=== PATIENT | female | born 1965 | race Caucasian/White ===

== ENCOUNTER → 2017-12-29 | Outpatient (CLI) | payer BC ==
--- NOTE | 2017-12-29 09:11 | RADIOLOGY REPORT (SQ) ---
EXAM DESCRIPTION: VENOUS BILATERAL LOWER COMPLETED DATE/TIME: 12/29/2017 8:55 am REASON FOR STUDY: LEG SWELLING M79.89 OTHER SPECIFIED SOFT TISSUE DISORDERS COMPARISON: None. TECHNIQUE: Dynamic and static henderson scale and color images acquired of both lower extremity venous sy stems. Selected spectral images acquired with additional compression and augmentation maneuvers. Imag es stored on PACS. LIMITATIONS: None. FINDINGS: RIGHT LEG COMMON FEMORAL AND FEMORAL: Normal phasicity, compression and augmentation. No visualized echogenic m aterial on henderson scale. No defects on color images. POPLITEAL: Normal compression and augmentation. No visualized echogenic material on henderson scale. No de fects on color images. CALF VESSELS: Normal compression and augmentation. No visualized echogenic material on henderson scale. No defects on color image. GSV AND SSV: Normal compression. No visualized echogenic material on henderson scale. No defects on color images. ANY DEEP VENOUS INSUFFICIENCY: Not evaluated. ANY EVIDENCE OF POPLITEAL CYST: No. LEFT LEG COMMON FEMORAL AND FEMORAL: Normal phasicity, compression and augmentation. No visualized echogenic m aterial on henderson scale. No defects on color images. POPLITEAL: Normal compression and augmentation. No visualized echogenic material on henderson scale. No de fects on color images. CALF VESSELS: Normal compression and augmentation. No visualized echogenic material on henderson scale. No defects on color images. GSV AND SSV: Normal compression. No visualized echogenic material on henderson scale. No defects on color images. ANY DEEP VENOUS INSUFFICIENCY: Not evaluated. ANY EVIDENCE POPLITEAL CYST: No. IMPRESSION: No evidence of deep vein or superficial vein thrombosis of the lower extremities. TECHNICAL DOCUMENTATION: JOB ID: [id number] [employer]- All Rights Reserved
== END ==
LOC: SP 08:16
PROVIDERS: ATTEND Family Medicine
DX: M79.89 Other specified soft tissue disorders (principal)
CPT/HCPCS: 93970

== ENCOUNTER 2018-07-13 08:10 | Day surgery (SDC) | payer BC ==
[~2018-07-13 08:10] MED LIST: PROPOFOL INJ 200 MG/20 ML VIAL IV ONE
[2018-07-13 09:53] VITALS: BP 110/63
--- NOTE | 2018-07-13 13:59 | Operative Report ---
Operative Report DATE OF SURGERY: 07/13/18 Operative Report: The risks, benefits and alternatives of the procedure including the risks of bleeding, perforation requiring surgery are explained to the patient in detail and informed consent is obtained. Patient was taken back to the endoscopy suite and placed in the left, lateral decubital position. Timeout was called. Propofol medication is administered. A rectal examination is done which did not reveal any masses, tears or fissures. An Olympus videoscope was inserted into the patient's rectum. The scope was then carefully advanced all the way to the cecum. The cecum was identified by the usual anatomical landmarks including the ileocecal valve as well as the appendiceal office. Photodocumentation is obtained. The scope was then sequentially pulled back via the rest segments of the colon including the ascending colon, hepatic flexure, transverse colon, splenic flexure, descending colon and finally into the rectosigmoid portions of the colon. Retroflexion maneuvers performed. The risks benefits and alternatives of the EGD are explained to the patient in detail and informed consent is obtained.A GIF Olympus video scope was inserted into the patient's mouth and hypopharynx ,the esophagus is identified intubated and insufflated, the scope was then advanced through the esophagus stomach and duodenum retroflexion maneuver is done ,the esophagus stomach and first and second portions of the duodenum examined PREOPERATIVE DIAGNOSIS: Anemia rule out GI blood loss. Blood in stool. Change in bowel habits. Encounter for colorectal cancer screening POSTOPERATIVE DIAGNOSIS: Right side colon inflammation , biopsy is obtained. Internal hemorrhoids. gastritis and gastric erosions. esophagitis and esophageal ulcers. hiatal hernia OPERATION: Colonoscopy with biopsy. EGD with biopsy SURGEON: JARAD NAVARRETE ANESTHESIA: LMAC TISSUE REMOVED OR ALTERED: As noted above. COMPLICATIONS: None. ESTIMATED BLOOD LOSS: None. INTRAOPERATIVE FINDINGS: As noted above. PROCEDURE: Patient tolerated the procedure well. No immediate postprocedure complications are noted. Patient discharged in good condition. Discharge date 07/13/2018. Discharge diet: Regular. Discharge activity: Regular. 2-3 week follow-up to discuss findings. Patient is instructed call the office or proceed to the emergency room should there be any further problems or questions. Wait on the pathology.
== END 2018-07-13 09:50 | disposition home or self-care (01) ==
LOC: END 08:10
PROVIDERS: ATTEND Internal Medicine Gastroenterology
DX: K29.50 Unspecified chronic gastritis without bleeding (principal); K25.9 Gastric ulcer, unspecified as acute or chronic, without hemorrhage or perforation; K22.10 Ulcer of esophagus without bleeding; K20.9 Esophagitis, unspecified; K44.9 Diaphragmatic hernia without obstruction or gangrene; K62.89 Other specified diseases of anus and rectum; K92.1 Melena; K52.9 Noninfective gastroenteritis and colitis, unspecified; K64.8 Other hemorrhoids; E78.5 Hyperlipidemia, unspecified; E03.9 Hypothyroidism, unspecified; M32.9 Systemic lupus erythematosus, unspecified; I10 Essential (primary) hypertension; M81.0 Age-related osteoporosis without current pathological fracture; Z79.899 Other long term (current) drug therapy; Z88.5 Allergy status to narcotic agent
CPT/HCPCS: 43239; 45380; 88305 ×2; J2704; 813

== ENCOUNTER 2018-09-02 08:00 | Day surgery (SDC) | payer BC ==
[2018-09-02] MEDS ORDERED: PROPOFOL INJ 200 MG/20 ML VIAL IV ONE (10:16)
[2018-09-02] MEDS ORDERED: ONDANSETRON HCL INJ/PF 4 MG/2 ML SDV IV PRN (10:33)
--- NOTE | 2018-09-02 11:03 | Operative Report ---
Operative Report DATE OF SURGERY: 09/02/18 Operative Report: The risks benefits and alternatives of the procedure explained to the patient in detail and informed consent is obtained.A GIF Olympus video scope was inserted into the patient's mouth and hypopharynx ,the esophagus is identified intubated and insufflated, the scope was then advanced through the esophagus stomach and duodenum, retroflexion maneuver is done the esophagus stomach and first and second portions of the duodenum examined PREOPERATIVE DIAGNOSIS: Follow-up esophageal ulcer POSTOPERATIVE DIAGNOSIS: No esophageal erosion. Healed gastric ulcers. Biopsies obtained to rule out Helicobacter pylori OPERATION: EGD with biopsy SURGEON: JARAD NAVARRETE ANESTHESIA: LMAC TISSUE REMOVED OR ALTERED: As noted above COMPLICATIONS: None. ESTIMATED BLOOD LOSS: None. INTRAOPERATIVE FINDINGS: As noted above. PROCEDURE: Patient tolerated procedure well. No immediate postprocedure complications are noted. Patient discharged in good condition. Discharge date 09/02/2018. Discharge diet: Regular. Discharge activity: Regular. 2-3-week follow-up to discuss findings. Patient is instructed call the office or proceed to the emergency room should there be any further problems or questions. Wait on the pathology.
[2018-09-02 11:26] VITALS: BP 133/81
== END 2018-09-02 11:28 | disposition home or self-care (01) ==
LOC: OROUT 08:00
PROVIDERS: ATTEND Internal Medicine Gastroenterology
DX: Z09 Encounter for follow-up examination after completed treatment for conditions other than malignant neoplasm (principal); Z87.11 Personal history of peptic ulcer disease; Z87.19 Personal history of other diseases of the digestive system; E78.5 Hyperlipidemia, unspecified; E03.9 Hypothyroidism, unspecified; M32.9 Systemic lupus erythematosus, unspecified; I10 Essential (primary) hypertension; M19.90 Unspecified osteoarthritis, unspecified site; D64.9 Anemia, unspecified; E07.9 Disorder of thyroid, unspecified; Z86.73 Personal history of transient ischemic attack (TIA), and cerebral infarction without residual deficits; Z79.899 Other long term (current) drug therapy; Z79.82 Long term (current) use of aspirin; Z88.5 Allergy status to narcotic agent
CPT/HCPCS: 43239; 36415; 84132; 88305 ×2; J2704; 731

== ENCOUNTER → 2018-10-16 | Outpatient (CLI) | payer BC ==
[2018-10-16 15:38] LABS: HEMATOCRIT 30.6 % (36.0-47.0); HEMOGLOBIN 10.3 g/dL (12.0-15.5); MEAN CORPUSCULAR HEMOGLOBIN 32.1 pg (27.0-33.4); MEAN CORPUSCULAR HGB CONC 33.7 g/dL (32.0-36.0); MEAN CORPUSCULAR VOLUME 95 fl (80-97); PLATELET COUNT 370 10^3/uL (150-450); RED BLOOD COUNT 3.22 10^6/uL (3.72-5.28); RED CELL DISTRIBUTION WIDTH 13.5 % (11.5-14.0); WHITE BLOOD COUNT 14.2 10^3/uL (4.0-10.5)
[2018-10-16 15:55] LABS: ALANINE AMINOTRANSFERASE 31 U/L (9-52); ALBUMIN 3.3 g/dL (3.5-5.0); ALKALINE PHOSPHATASE 134 U/L (38-126); ANION GAP 15 (5-19); ASPARTATE AMINO TRANSFERASE 25 U/L (14-36); BILIRUBIN,DIRECT 0.3 mg/dL (0.0-0.4); BILIRUBIN,TOTAL 0.3 mg/dL (0.2-1.3); BLOOD UREA NITROGEN 20 mg/dL (7-20); CALCIUM 9.7 mg/dL (8.4-10.2); CARBON DIOXIDE 26 mmol/L (22-30); CHLORIDE 98 mmol/L (98-107); GLUCOSE 128 mg/dL (75-110); POTASSIUM 3.7 mmol/L (3.6-5.0); SODIUM 138.9 mmol/L (137-145); TRIGLYCERIDES 97 mg/dL (<150)
[2018-10-16 16:22] LABS: DIRECT LDL 94 mg/dL (<100)
[2018-10-18 06:38] LABS: COMPLEMENT C4 51 mg/dL (14-44)
[2018-10-18 08:15] LABS: COMPLEMENT C3 189 mg/dL (82-167)
[2018-10-18 14:40] LABS: CREATININE URINE 12.6 mg/dL (Not Estab.); MICROALBUMIN URINE 3.3 ug/mL (Not Estab.)
== END ==
LOC: LAB 16:24
PROVIDERS: ATTEND Internal Medicine Cardiovascular Disease
DX: R60.0 Localized edema (principal); R06.02 Shortness of breath; Z79.899 Other long term (current) drug therapy; I51.7 Cardiomegaly
CPT/HCPCS: 36415; 80048; 80061; 80076; 82043; 82306; 82570; 83735; 83880; 85027; 86160; 86225; 86226

== ENCOUNTER 2018-10-17 01:38 | Emergency (ER) | payer BC ==
[2018-10-17] MEDS ORDERED: ONDANSETRON 4 MG TAB.RAPDIS PO ONE (02:04)
[2018-10-17] MEDS ORDERED: HYDROCODONE/ACETAMINOPHEN 5-325 MG TABLET PO ONE (02:04)
--- NOTE | 2018-10-17 02:09 | ER Document Report ---
ED General - General Chief Complaint: Breathing Difficulty Stated Complaint: COUGH Time Seen by Provider: 10/17/18 01:54 Notes: Patient is a 53-year-old female that comes to the emergency department for chief complaint of shortness of breath. She states that she has had a cough for a while but the past 3 days she has had increased shortness of breath. Tonight she also has had persistent cough. She has had a fever within the past week but not within the past few days. She was seen by primary care, given 2 separate doses of Rocephin and placed on amoxicillin. She also takes Lasix 20 mg twice daily for lower extremity swelling, states she has had elevated BNP in the past but is unsure of CHF diagnosis or EF. Denies chest pain. Denies smoking, COPD, asthma but does state that she has a history of lupus. She states that she has albuterol at home and she tried it but it did not help. Adjusted to 60 mg of prednisone this week by her PCP, up from her normal 5 mg. TRAVEL OUTSIDE OF THE [place] IN LAST 30 DAYS: No - Related Data Allergies/Adverse Reactions: codeine Allergy (Verified 09/01/18 11:21) Past Medical History - General Information source: Patient - Social History Smoking Status: Never Smoker Frequency of alcohol use: Social Drug Abuse: None Lives with: Family Family History: Reviewed & Not Pertinent - Past Medical History Cardiac Medical History: Reports: Hx Hypertension Denies: Hx Coronary Artery Disease, Hx Heart Attack Pulmonary Medical History: Denies: Hx Asthma, Hx Bronchitis, Hx COPD, Hx Pneumonia Neurological Medical History: Denies: Hx Cerebrovascular Accident, Hx Seizures Musculoskeletal Medical History: Reports Hx Arthritis - LUPUS - Immunizations Hx Diphtheria, Pertussis, Tetanus Vaccination: Yes History of Influenza Vaccine for 08/2017 - 01/2018 Season: No Review of Systems - Review of Systems Constitutional: See HPI EENT: No symptoms reported Cardiovascular: No symptoms reported Respiratory: See HPI Gastrointestinal: No symptoms reported Genitourinary: No symptoms reported Female Genitourinary: No symptoms reported Musculoskeletal: No symptoms reported Skin: No symptoms reported Hematologic/Lymphatic: No symptoms reported Neurological/Psychological: No symptoms reported Physical Exam - Vital signs Vitals: Temp Pulse Resp BP Pulse Ox 97.4 F 110 H 20 122/65 100 10/17/18 01:41 10/17/18 01:41 10/17/18 01:41 10/17/18 01:41 10/17/18 01:41 - Notes Notes: GENERAL: Alert, interacts well. No acute distress. HEAD: Normocephalic, atraumatic. EYES: Pupils equal, round, and reactive to light. Extraocular movements intact. ENT: Oral mucosa moist, tongue midline. Oropharynx unremarkable. Airway patent. Nares patent, no nasal septal hematoma, TM's intact. NECK: Full range of motion. Supple. Trachea midline. LUNGS: Rales heard in the lung bases, much louder on the right compared to the left. Patient with frequent nonproductive cough. Borderline tachypnea. She is not in distress. Coughing makes completing sentences difficult. HEART: Borderline tachycardia. No murmur ABDOMEN: Soft, non-tender. Non-distended. Bowel sounds present in all 4 quadrants. GENITOURINARY: Deferred EXTREMITIES: Moves all 4 extremities spontaneously. Bilateral 1+ pitting edema. Normal radial and dorsalis pedis pulses bilaterally. No cyanosis. BACK: no cervical, thoracic, lumbar midline tenderness. No saddle anesthesia, normal distal neurovascular exam. NEUROLOGICAL: Alert and oriented x3. Normal speech. [cranial nerves II through XII grossly intact]. PSYCH: Normal affect, normal mood. SKIN: Warm, dry, normal turgor. No rashes or lesions noted. Course - Re-evaluation Re-evalutation: EKG shows sinus tachycardia at a rate of 105, no T wave inversions or ST segment changes in consecutive leads. Chest x-ray showing small right pleural effusion, no overt abnormality otherwise. CBC unremarkable other than mild normocytic anemia. Chemistry shows mild hypokalemia, bicarb is slightly low but venous blood gas shows normal pH. BNP is elevated at 2500. Troponin indeterminate at 0.036. On evaluation at bedside patient is tachycardic between 105-110. She is mildly hypoxic at rest at 92-93% on room air, she was placed on 2 L nasal cannula and this resolved. She has rales on examination, worse on the right has 1+ pitting edema bilaterally. She has dyspnea on exertion, she also has difficulty completing sentences and lying flat. All of this is new for patient she reports. 10/17/18 03:30 Patient with dyspnea on exertion, her cough has resolved on my reevaluation but now she still has dyspnea, she cannot lay flat, she cannot walk across the room without becoming short of breath reportedly. She has rales on exam, mild bilateral lower extremity edema. In addition to this patient had a long distance travel within the past 3 weeks and she is tachycardic at approximately 110 which she states is not normal for her. After discussion because of her dyspnea on exertion, tachycardia, recent travel we will perform CTA to rule out PE. CTA does not show pulmonary embolism. It does show right lower lobe pneumonia. Consistent with the area of rales heard on her exam. Given doxycycline for atypical coverage because of her Rocephin use and amoxicillin use. On reevaluation patient is actually well-appearing. She does not have oxygen at home. She was given Lasix, potassium. Discussed admission versus going home. I did discuss patient with Dr. Perez, he recommends to ambulate patient with pulse oxygenation. If she does this well he recommends discharge with close follow-up. I discussed this with patient, she is very willing to do this, she actually did quite well, she did become tachycardic, however she did not become hypoxic and I monitored her and she did not have respiratory distress. She states she would prefer to go home. She has follow-up within 24 hours and her providers office which has already been scheduled. She was given a dose of doxycycline here. I discussed with Dr. Sales. Heart rate 105, oxygen saturation 95% on room air. Patient stable at the time of discharge. - Vital Signs Vital signs: Temp Pulse Resp BP Pulse Ox 97.4 F 110 H 15 120/73 96 10/17/18 01:41 10/17/18 01:41 10/17/18 06:00 10/17/18 04:00 10/17/18 06:00 - Laboratory Result Diagrams: 10/17/18 02:36 10/17/18 02:36 Laboratory results interpreted by me: 10/17/18 10/17/18 10/17/18 02:36 02:36 02:36 RBC 3.27 L Hgb 10.5 L Hct 31.0 L Seg Neutrophils % 88.1 H Lymphocytes % 5.8 L Absolute Neutrophils 8.6 H VBG pCO2 Sodium 136.3 L Potassium 3.3 L Chloride 97 L Carbon Dioxide 19 L Anion Gap 20 H Glucose 177 H Alkaline Phosphatase 153 H NT-Pro-B Natriuret Pep 2470 H 10/17/18 02:36 RBC Hgb Hct Seg Neutrophils % Lymphocytes % Absolute Neutrophils VBG pCO2 33.8 L Sodium Potassium Chloride Carbon Dioxide Anion Gap Glucose Alkaline Phosphatase NT-Pro-B Natriuret Pep Discharge - Discharge Clinical Impression: Shortness of breath, Dyspnea on exertion Pneumonia Qualifiers: Pneumonia type: due to unspecified organism Laterality: right Lung location: lower lobe of lung Qualified Code(s): J18.1 - Lobar pneumonia, unspecified organism Condition: Stable Disposition: HOME, SELF-CARE Additional Instructions: We did perform a CAT scan of your chest to rule out pulmonary embolism, this showed a right lower lobe pneumonia. Take doxycycline antibiotic as prescribed to completion. You were given a dose of potassium and Lasix tonight. Your potassium was 3.3, this will need to be rechecked. Your BNP improved from yesterday, today was 2470. Follow-up with your primary care provider within 24 hours. Return to the emergency department for any concerning or worsening symptoms including spiking fever, increased difficulty breathing, passing out, or any other concerning or worsening symptoms. Prescriptions: Doxycycline Hyclate 100 mg PO BID #14 capsule Hydrocodone/Acetaminophen [[place] 5-325 mg Tablet] 1 - 2 tab PO ASDIR #10 tablet Referrals: [facility] MD [EMERITUS] - Follow up as needed
--- NOTE | 2018-10-17 02:37 | RADIOLOGY REPORT (SQ) ---
CLINICAL HISTORY: shortness of breath COMPARISON: None. TECHNIQUE: XR CHEST 2 VIEWS 10/17/2018 2:07 AM CONVEYOR BELT OPERATOR FINDINGS: Cardiac silhouette is mildly enlarged. Lungs are clear without consolidation, atelectasis, mass or edema. There is a trace right pleural effusion. There is no pneumothorax. There are no acute osseous findings. IMPRESSION: No definite pneumonia.
[2018-10-17 02:41] LABS: VENOUS BLOOD BASE EXCESS -2.9 mmol/L; VENOUS BLOOD PCO2 33.8 mmHg (35-63); VENOUS BLOOD PH 7.41 (7.30-7.42)
[2018-10-17 02:47] LABS: ABSOLUTE LYMPHOCYTES (AUTO) 0.6 10^3/uL (0.5-4.7); ABSOLUTE MONOCYTES (AUTO) 0.6 10^3/uL (0.1-1.4); ABSOLUTE NEUT (AUTO) 8.6 10^3/uL (1.7-8.2); BASOPHILS % (AUTO) 0.1 % (0-2); EOSINOPHILS % (AUTO) 0.1 % (0-6); HEMOGLOBIN 10.5 g/dL (12.0-15.5); LYMPHOCYTES % (AUTO) 5.8 % (13-45); MEAN CORPUSCULAR HEMOGLOBIN 32.2 pg (27.0-33.4); MEAN CORPUSCULAR VOLUME 95 fl (80-97); MONOCYTES % (AUTO) 5.9 % (3-13); PLATELET COUNT 387 10^3/uL (150-450); RED BLOOD COUNT 3.27 10^6/uL (3.72-5.28); RED CELL DISTRIBUTION WIDTH 13.4 % (11.5-14.0); SEGMENTED NEUTROPHILS % (AUTO) 88.1 % (42-78); TOTAL CELLS COUNTED % (AUTO) 100 %; WHITE BLOOD COUNT 9.7 10^3/uL (4.0-10.5)
[2018-10-17 02:54] LABS: BLOOD UREA NITROGEN 19 mg/dL (7-20); CALCIUM 9.3 mg/dL (8.4-10.2); GLUCOSE 177 mg/dL (75-110); POTASSIUM 3.3 mmol/L (3.6-5.0)
[2018-10-17 02:55] LABS: ALANINE AMINOTRANSFERASE 36 U/L (9-52); ALBUMIN 3.6 g/dL (3.5-5.0); ALKALINE PHOSPHATASE 153 U/L (38-126); ASPARTATE AMINO TRANSFERASE 27 U/L (14-36); BILIRUBIN,DIRECT 0.3 mg/dL (0.0-0.4); BILIRUBIN,TOTAL 0.4 mg/dL (0.2-1.3); TOTAL PROTEIN 6.5 g/dL (6.3-8.2)
[2018-10-17 03:00] LABS: CARBON DIOXIDE 19 mmol/L (22-30); CHLORIDE 97 mmol/L (98-107); SODIUM 136.3 mmol/L (137-145)
[2018-10-17 03:08] LABS: ANION GAP 20 (5-19)
[2018-10-17 03:15] LABS: TROPONIN I 0.036 ng/mL
--- NOTE | 2018-10-17 04:40 | RADIOLOGY REPORT (SQ) ---
EXAM DESCRIPTION: CT CHEST ANGIOGRAPHY WITHOUT THEN WITH IV CONTRAST COMPLETED DATE/TME: 10/17/2018 03:28 CLINICAL HISTORY: 53 years Female, shortness of breath, recent travel, tachycardia Comparison: None. Technique: IV contrast. Coronal and sagittal reformat. 3d reconstruction. This exam was performed according to our departmental dose-optimization program, which includes automated exposure control, adjustment of the mA and/or kV according to patient size and/or use of iterative reconstruction technique.[facility]: Dose Right [facility]: CareDose [facility]: Dose Right [facility]: Teradose 4D [facility]: Smart Clusterize LIMITATIONS: None Findings: No pulmonary embolus. No right ventricular strain. Moderate streakiness based patchiness of the right lower lobe. Moderate nonspecific colonic fluid retention. Bilateral perinephric fat stranding, nonspecific. Inferior neck, axillae, mediastinum, airway, lymphatics, heart, vasculature, upper abdomen, and musculoskeleton appear otherwise unremarkable. Impression: 1. Right lower lobar pneumonia. 2. No pulmonary embolus.
[2018-10-17] MEDS ORDERED: DOXYCYCLINE HYCLATE INJ 100 MG VIAL IV ONE (04:49)
[2018-10-17] MEDS ORDERED: FUROSEMIDE INJ/PF 20 MG/2 ML SDV IV ONE (04:49)
[2018-10-17] MEDS ORDERED: POTASSIUM CHLORIDE 10 MEQ CAPSULE.ER PO ONE (05:14)
[2018-10-17] MEDS ORDERED: HYDROCODONE/ACETAMINOPHEN 5-325 MG (6 TAB/ER DISP) PO PRN (05:54)
[2018-10-17 06:50] VITALS: BP 114/71
--- NOTE | 2018-10-17 06:56 | EKG REPORT ---
SEVERITY:- ABNORMAL ECG - SINUS TACHYCARDIA LEFT VENTRICULAR HYPERTROPHY : Confirmed by: George Mcneill 17-Oct-2018 06:56:11
== END 2018-10-17 06:50 | disposition home or self-care (01) ==
LOC: ER 01:38
DX: J18.1 Lobar pneumonia, unspecified organism (principal); R06.00 Dyspnea, unspecified; R00.0 Tachycardia, unspecified; I10 Essential (primary) hypertension; Z88.6 Allergy status to analgesic agent
CPT/HCPCS: 93005; 99285; 96375; 96365; 36415; 83735; 85025; 80053; 84484; 82803; 83880; 71046; 71275; 93010; J3490; S0119; J1940

== ENCOUNTER → 2019-01-10 | Outpatient (CLI) | payer BC ==
[2019-01-10 12:24] LABS: ABSOLUTE BASOPHILS # (AUTO) 0.1 10^3/uL (0.0-0.2); ABSOLUTE MONOCYTES (AUTO) 0.9 10^3/uL (0.1-1.4); BASOPHILS % (AUTO) 0.5 % (0-2); HEMATOCRIT 29.5 % (36.0-47.0); HEMOGLOBIN 10.2 g/dL (12.0-15.5); LYMPHOCYTES % (AUTO) 9.2 % (13-45); MEAN CORPUSCULAR HEMOGLOBIN 33.3 pg (27.0-33.4); MEAN CORPUSCULAR HGB CONC 34.5 g/dL (32.0-36.0); MEAN CORPUSCULAR VOLUME 97 fl (80-97); MONOCYTES % (AUTO) 8.4 % (3-13); PLATELET COUNT 379 10^3/uL (150-450); RED BLOOD COUNT 3.05 10^6/uL (3.72-5.28); RED CELL DISTRIBUTION WIDTH 13.7 % (11.5-14.0); SEGMENTED NEUTROPHILS % (AUTO) 81.9 % (42-78); TOTAL CELLS COUNTED % (AUTO) 100 %
[2019-01-10 12:44] LABS: ALANINE AMINOTRANSFERASE 47 U/L (9-52); ALBUMIN 3.8 g/dL (3.5-5.0); ALKALINE PHOSPHATASE 136 U/L (38-126); ANION GAP 12 (5-19); ASPARTATE AMINO TRANSFERASE 39 U/L (14-36); BILIRUBIN,DIRECT 0.3 mg/dL (0.0-0.4); BILIRUBIN,TOTAL 0.6 mg/dL (0.2-1.3); BLOOD UREA NITROGEN 32 mg/dL (7-20); C-REACTIVE PROTEIN 64.1 mg/L (<10.0); CALCIUM 9.5 mg/dL (8.4-10.2); CARBON DIOXIDE 29 mmol/L (22-30); CHLORIDE 89 mmol/L (98-107); GLUCOSE 105 mg/dL (75-110); POTASSIUM 4.2 mmol/L (3.6-5.0); SODIUM 130.1 mmol/L (137-145); TOTAL PROTEIN 6.2 g/dL (6.3-8.2)
[2019-01-10 13:02] LABS: ERYTHROCYTE SEDIMENTATION RATE 110 mm/hr (0-30)
== END ==
LOC: WC 11:15
PROVIDERS: ATTEND Nurse Practitioner Family
DX: L97.212 Non-pressure chronic ulcer of right calf with fat layer exposed (principal)
CPT/HCPCS: 36415; 80053; 85025; 85652; 86140

== ENCOUNTER 2019-01-11 11:47 | Inpatient (IN) | payer BC ==
--- NOTE | 2019-01-11 12:21 | ER Document Report ---
ED Medical Screen (RME) - General Chief Complaint: Leg Pain Stated Complaint: LEG PAIN Time Seen by Provider: 01/11/19 12:10 Primary Care Provider: MAJOR CAMP NP, VETERINARY RADIOLOGIST [Primary Care Provider] - Follow up as needed Notes: 53-year-old pleasant female to the emergency department for evaluation of worsening cellulitis to the right lower extremity. Patient currently on clindamycin. Had a hematoma formation to the right lower tib-fib. Developed into an abscess and cellulitis. Currently on clindamycin. Getting worse. Was scheduled to have an ultrasound next week. Was seen by wound care and sent here for possible IV antibiotics and admission. Patient does have lupus. Is on immunosuppressive therapy including cyclosporine and monoclonal antibody therapy. I have greeted and performed a rapid initial assessment of this patient. A comprehensive ED assessment and evaluation of the patient, analysis of test results and completion of the medical decision making process will be conducted by additional ED providers. TRAVEL OUTSIDE OF THE [place] IN LAST 30 DAYS: No - Related Data Allergies/Adverse Reactions: No Known Allergies Allergy (Unverified 01/11/19 11:49) Past Medical History - Past Medical History Cardiac Medical History: Reports: Hx Hypertension Denies: Hx Coronary Artery Disease, Hx Heart Attack Pulmonary Medical History: Denies: Hx Asthma, Hx Bronchitis, Hx COPD, Hx Pneumonia Neurological Medical History: Denies: Hx Cerebrovascular Accident, Hx Seizures Renal/ Medical History: Denies: Hx Peritoneal Dialysis Musculoskeltal Medical History: Reports Hx Arthritis - LUPUS Past Surgical History: Reports: Hx Hysterectomy - Immunizations Hx Diphtheria, Pertussis, Tetanus Vaccination: Yes History of Influenza Vaccine for 08/2017 - 01/2018 Season: No Physical Exam - Vital signs Vitals: Temp Pulse Resp BP Pulse Ox 98.7 F 77 20 130/77 H 100 01/11/19 12:00 01/11/19 12:00 01/11/19 12:00 01/11/19 12:00 01/11/19 12:00 Course - Re-evaluation Re-evalutation: 01/11/19 12:20 Physical exam: Right lower extremity swollen and erythematous from the knee down. There is a bandage over an abscess/drainage area on the right tib-fib area. - Vital Signs Vital signs: Temp Pulse Resp BP Pulse Ox 98.7 F 77 20 130/77 H 100 01/11/19 12:00 01/11/19 12:00 01/11/19 12:00 01/11/19 12:00 01/11/19 12:00 Doctor's Discharge - Discharge Referrals: MAJOR CAMP NP, VETERINARY RADIOLOGIST [Primary Care Provider] - Follow up as needed
[2019-01-11 12:47] LABS: ABSOLUTE LYMPHOCYTES (AUTO) 1.1 10^3/uL (0.5-4.7); ABSOLUTE MONOCYTES (AUTO) 1.1 10^3/uL (0.1-1.4); ABSOLUTE NEUT (AUTO) 8.5 10^3/uL (1.7-8.2); BASOPHILS % (AUTO) 0.4 % (0-2); HEMATOCRIT 31.4 % (36.0-47.0); LYMPHOCYTES % (AUTO) 10.2 % (13-45); MEAN CORPUSCULAR HEMOGLOBIN 33.9 pg (27.0-33.4); MEAN CORPUSCULAR HGB CONC 35.1 g/dL (32.0-36.0); MEAN CORPUSCULAR VOLUME 97 fl (80-97); PLATELET COUNT 416 10^3/uL (150-450); RED BLOOD COUNT 3.25 10^6/uL (3.72-5.28); RED CELL DISTRIBUTION WIDTH 13.8 % (11.5-14.0); SEGMENTED NEUTROPHILS % (AUTO) 79.4 % (42-78); TOTAL CELLS COUNTED % (AUTO) 100 %; WHITE BLOOD COUNT 10.7 10^3/uL (4.0-10.5)
[2019-01-11 13:05] LABS: ALANINE AMINOTRANSFERASE 40 U/L (9-52); ALBUMIN 3.9 g/dL (3.5-5.0); ALKALINE PHOSPHATASE 136 U/L (38-126); ANION GAP 11 (5-19); ASPARTATE AMINO TRANSFERASE 34 U/L (14-36); BILIRUBIN,DIRECT 0.4 mg/dL (0.0-0.4); BILIRUBIN,TOTAL 0.5 mg/dL (0.2-1.3); BLOOD UREA NITROGEN 24 mg/dL (7-20); C-REACTIVE PROTEIN 55.8 mg/L (<10.0); CALCIUM 10.3 mg/dL (8.4-10.2); CARBON DIOXIDE 31 mmol/L (22-30); CHLORIDE 92 mmol/L (98-107); GLUCOSE 110 mg/dL (75-110); POTASSIUM 4.5 mmol/L (3.6-5.0); SODIUM 133.6 mmol/L (137-145); TOTAL PROTEIN 6.3 g/dL (6.3-8.2)
--- NOTE | 2019-01-11 13:13 | RADIOLOGY REPORT (SQ) ---
EXAM DESCRIPTION: TIBIA FIBULA RIGHT COMPLETED DATE/TIME: 01/11/2019 12:53 pm REASON FOR STUDY: RLE soft tissue infection COMPARISON: None. NUMBER OF VIEWS: Two views. TECHNIQUE: Two radiographic images acquired of the right tibia and fibula to include the knee and an kle in at least one projection. LIMITATIONS: None. FINDINGS: MINERALIZATION: Normal. BONES: No acute fracture or dislocation. No worrisome bone lesions. No significant osteophytes. SOFT TISSUES: No obvious swelling or foreign body. OTHER: No other significant finding. IMPRESSION: NO SIGNIFICANT RADIOGRAPHIC ABNORMALITY. TECHNICAL DOCUMENTATION: JOB ID: [id number] [employer]- All Rights Reserved Reading location - IP/workstation name: [email or web address]
[2019-01-11 13:25] LABS: ERYTHROCYTE SEDIMENTATION RATE 113 mm/hr (0-30)
[2019-01-11] MEDS ORDERED: VANCOMYCIN HCL INJ 1000 MG VIAL IV ONE (13:43)
[2019-01-11] MEDS ORDERED: CEFTRIAXONE INJ 1000 MG VIAL IV ONE (13:44)
--- NOTE | 2019-01-11 14:03 | ER Document Report ---
ED Extremity Problem, Lower - General Chief Complaint: Leg Pain Stated Complaint: LEG PAIN Time Seen by Provider: 01/11/19 12:10 Notes: 53-year-old female patient to the emergency department for evaluation of right lower extremity cellulitis. Patient has been treated as an outpatient with clindamycin for a few days. Woke up this morning and her leg was excessively red, swollen with redness extending all the way up to the knee which was quite significant change from yesterday. Has not felt well. Patient is on immunosuppressive therapy currently for her lupus. Has been treated with and seen at wound care [facility] an outpatient and referred here for possible admission for cellulitis. Patient states that this started after hematoma in his never healed. Was getting packed yesterday by wound team TRAVEL OUTSIDE OF THE [place] IN LAST 30 DAYS: No - HPI Location: Leg Occurred: Last week Where: Home Severity: Moderate Pain Level: 3 - Related Data Allergies/Adverse Reactions: No Known Allergies Allergy (Unverified 01/11/19 11:49) Past Medical History - General Information source: Patient - Social History Smoking Status: Never Smoker Frequency of alcohol use: None Lives with: Spouse/Significant other Family History: Reviewed & Not Pertinent Patient has suicidal ideation: No Patient has homicidal ideation: No - Past Medical History Cardiac Medical History: Reports: Hx Hypertension Denies: Hx Coronary Artery Disease, Hx Heart Attack Pulmonary Medical History: Denies: Hx Asthma, Hx Bronchitis, Hx COPD, Hx Pneumonia Neurological Medical History: Denies: Hx Cerebrovascular Accident, Hx Seizures Renal/ Medical History: Denies: Hx Peritoneal Dialysis Musculoskeletal Medical History: Reports Hx Arthritis - LUPUS Past Surgical History: Reports: Hx Hysterectomy - Immunizations Hx Diphtheria, Pertussis, Tetanus Vaccination: Yes Review of Systems - Review of Systems Notes: Constitutional: denies: Chills, Diaphoresis, Fever, Malaise, Weakness EENT: denies: Eye discharge, Blurred vision, Tearing, Double vision, Nose congestion, Nose discharge, Throat swelling, Mouth pain Cardiovascular: denies: Palpitations, Heart racing, Orthopnea, Dyspnea, Chest pain Respiratory: denies: Cough, Hurts to breathe, Wheezing, Shortness of breath Gastrointestinal: denies: Abdominal pain, Diarrhea, Nausea, Vomiting, Black stoo ls, bright red blood in stool Genitourinary: denies: Burning, Dysuria, Discharge, Frequency, Flank pain, Hematuria Musculoskeletal: denies: Joint pain, Joint swelling, Muscle pain, Muscle stiffness, back pain Hematologic/Lymphatic: denies: Anemia, Easy bleeding, Easy bruising, Blood clots Neurological/Psychological: denies: Confusion, Dementia, Depression, Loss of consciousness Skin: There is significant erythema and redness to the right lower extremity with swelling and pain Physical Exam - Vital signs Vitals: Temp Pulse Resp BP Pulse Ox 98.7 F 77 20 130/77 H 100 01/11/19 12:00 01/11/19 12:00 01/11/19 12:00 01/11/19 12:00 01/11/19 12:00 Interpretation: Normal - Notes Notes: This is a pleasant 53-year-old female in no acute distress with obvious cellulitis of the right lower extremity. - General General appearance: Appears well, Alert - HEENT Head: Normocephalic, Atraumatic Eyes: Normal Pupils: PERRL - Respiratory Respiratory status: No respiratory distress Chest status: Nontender Breath sounds: Normal Chest palpation: Normal - Cardiovascular Rhythm: Regular Heart sounds: Normal auscultation Murmur: No - Abdominal Inspection: Normal Distension: No distension Bowel sounds: Normal Tenderness: Nontender Organomegaly: No organomegaly - Back Back: Normal, Nontender - Extremities General upper extremity: Normal inspection, Nontender, Normal color, Normal ROM, Normal temperature General lower extremity: Other - The right leg lower extremity demonstrates significant erythema with lymphangitic streaking from the foot all the way up to the knee. There is no calf tenderness. There is a small area of breakdown in the skin on the distal right tibia area. Large amount of edema noted.. No: Cindy's sign - Neurological Neuro grossly intact: Yes Cognition: Normal Orientation: AAOx4 [place] Coma Scale Eye Opening: Spontaneous Glenn Coma Scale Verbal: Oriented Glenn Coma Scale Motor: Obeys Commands [place] Coma Scale Total: 15 Speech: Normal Motor strength normal: LUE, RUE, LLE, RLE Sensory: Normal - Psychological Associated symptoms: Normal affect, Normal mood - Skin Skin Temperature: Warm Skin Moisture: Dry Skin Color: Normal, Other - The right leg lower extremity demonstrates significant erythema with lymphangitic streaking from the foot all the way up to the knee. There is no calf tenderness. There is a small area of breakdown in the skin on the distal right tibia area. Large amount of edema noted. Course - Re-evaluation Re-evalutation: 01/11/19 14:20 Patient has significant cellulitis of the right lower extremity. No free air or gas seen in the tissue on x-ray. Blood count is elevated. CRP and sed rate are elevated. Patient is already on oral antibiotics and obviously failing outpatient treatment. Based on the fact the patient has immunosuppressive t herapy ongoing we need to start her on some IV antibiotics. Patient needs to be admitted at this time in my opinion. Patient is comfortable with this plan. Will admit to the hospitalist service. Laboratory 01/11/19 01/11/19 01/11/19 12:30 12:30 12:30 WBC 10.7 H RBC 3.25 L Hgb 11.0 L Hct 31.4 L MCV 97 MCH 33.9 H MCHC 35.1 RDW 13.8 Plt Count 416 Seg Neutrophils % 79.4 H Lymphocytes % 10.2 L Monocytes % 10.0 Eosinophils % 0.0 Basophils % 0.4 Absolute Neutrophils 8.5 H Absolute Lymphocytes 1.1 Absolute Monocytes 1.1 Absolute Eosinophils 0.0 Absolute Basophils 0.0 ESR 113 H Sodium 133.6 L Potassium 4.5 Chloride 92 L Carbon Dioxide 31 H Anion Gap 11 BUN 24 H Creatinine 1.04 Est GFR ( Amer) > 60 Est GFR (Non-Af Amer) 56 L Glucose 110 Lactic Acid 1.1 Calcium 10.3 H Total Bilirubin 0.5 Direct Bilirubin 0.4 Neonat Total Bilirubin Not Reportable Neonat Direct Bilirubin Not Reportable Neonat Indirect Bili Not Reportable AST 34 ALT 40 Alkaline Phosphatase 136 H C-Reactive Protein 55.8 H Total Protein 6.3 Albumin 3.9 Tibia/Fibula X-Ray 01/11/19 12:19 IMPRESSION: NO SIGNIFICANT RADIOGRAPHIC ABNORMALITY. 01/11/19 15:55 Verbal report on ultrasound negative for DVT - Vital Signs Vital signs: Temp Pulse Resp BP Pulse Ox 98.5 F 85 18 129/73 H 97 01/11/19 15:53 01/11/19 15:53 01/11/19 15:53 01/11/19 15:53 01/11/19 15:53 - Laboratory Result Diagrams: 01/11/19 12:30 01/11/19 12:30 Laboratory results interpreted by me: 01/11/19 01/11/19 12:30 12:30 WBC 10.7 H RBC 3.25 L Hgb 11.0 L Hct 31.4 L MCH 33.9 H Seg Neutrophils % 79.4 H Lymphocytes % 10.2 L Absolute Neutrophils 8.5 H ESR 113 H Sodium 133.6 L Chloride 92 L Carbon Dioxide 31 H BUN 24 H Est GFR (Non-Af Amer) 56 L Calcium 10.3 H Alkaline Phosphatase 136 H C-Reactive Protein 55.8 H Discharge - Discharge Clinical Impression: Cellulitis of right lower extremity Condition: Good Disposition: ADMITTED INPATIENT Admitting Provider: [place] Unit Admitted: Medical Floor
[2019-01-11] MEDS ORDERED: ACETAMINOPHEN 325 MG TABLET PO PRN (15:01)
[2019-01-11] MEDS ORDERED: HYDROCODONE/ACETAMINOPHEN 5-325 MG TABLET PO SCH (15:15)
--- NOTE | 2019-01-11 15:22 | PDOC H&P ---
History of Present Illness Admission Date/PCP: 01/11/19 14:25 LILLIANA MEJIA MD Patient complains of: cellulitis of the lower leg History of Present Illness: AGUSTIN ORTEGA is a 53 year old female who presents to the ER at the request of wound care. She bumped her leg into a table. Following that she developed a hematoma of her right lower leg. The bruising seemed to be improving. Then several days ago she developed some erythema around the leg and the area where the bruising was began to swell. The hematoma opened up and started draining she has been seen by the wound care clinic. She has been having the wound dressed and packed. She was started on clindamycin. The wound is continued to get worse over the last several days. She denies any fevers chills nausea vomiting constipation diarrhea headaches numbness or tingling. She does have some swelling in the leg but she states that she gets swelling and off a lot secondary to her lupus. 53-year-old female patient to the emergency department for evaluation of right lower extremity cellulitis. Patient has been treated as an outpatient with clindamycin for a few days. Woke up this morning and her leg was excessively red, swollen with redness extending all the way up to the knee which was quite significant change from yesterday. Has not felt well. Patient is on immunosuppressive therapy currently for her lupus. Has been treated with and seen at wound care [facility] an outpatient and referred here for possible admission for cellulitis. Patient states that this started after hematoma in his never healed. Was getting packed yesterday by wound team Past Medical History Cardiac Medical History: Reports: Hypertension Denies: Coronary Artery Disease, Myocardial Infarction Pulmonary Medical History: Denies: Asthma, Bronchitis, Chronic Obstructive Pulmonary Disease (COPD), Pneumonia Neurological Medical History: Denies: Seizures Musculoskeltal Medical History: Reports: Arthritis - LUPUS Hematology: Reports: Anemia Past Surgical History Past Surgical History: Reports: Hysterectomy Social History Lives with: Spouse/Significant other Smoking Status: Never Smoker Family History Family History: CAD, DM, Hypertension Parental Family History Reviewed: Yes Children Family History Reviewed: Yes Sibling(s) Family History Reviewed.: Yes Medication/Allergy Home Medications: Alendronate Sodium [Fosamax Inchweekly Inch 35 Mg Tablet] 35 mg PO .QWEEKLY 07/12/18 Amlodipine Besylate 10 mg PO DAILY 07/12/18 Aspirin [Aspirin 81 mg Chewable Tablet] 81 mg PO DAILY 07/12/18 Atorvastatin Calcium 10 mg PO DAILY 07/12/18 Belimumab [Benlysta] 800 mg IV [id number] 07/12/18 Cyclosporine [Sandimmune] 50 mg PO DAILY 07/12/18 Duloxetine HCl 60 mg PO DAILY 07/12/18 Ergocalciferol (Vitamin D2) [Vitamin D] 50,000 unit PO .QWEEKLY 07/12/18 Hydroxychloroquine Sulfate [Plaquenil 200 mg Tablet] 200 mg PO BID 07/12/18 Levothyroxine Sodium [Synthroid 50 Mcg Tablet] 50 mcg PO DAILY 07/12/18 Liothyronine Sodium [Cytomel] 15 mcg PO DAILY 07/12/18 Lisinopril/Hydrochlorothiazide [Lisinopril-Hctz 20-25 mg Tab] 1 each PO DAILY 07/12/18 Metoprolol Tartrate 50 mg PO BID 07/12/18 Mycophenolate Mofetil [Cellcept] 500 mg PO BID 07/12/18 Potassium Chloride 10 meq PO BID 07/12/18 Prednisone 5 mg PO DAILY 07/12/18 Budesonide [Uceris] 9 mg PO DAILY 08/18/18 Furosemide 60 mg PO DAILY 08/18/18 Doxycycline Hyclate 100 mg PO BID #14 capsule 10/17/18 Hydrocodone/Acetaminophen [[place] 5-325 mg Tablet] 1 - 2 tab PO ASDIR #10 tablet 10/17/18 Allergies/Adverse Reactions: No Known Allergies Allergy (Unverified 01/11/19 11:49) Review of Systems Constitutional: ABSENT: chills, fatigue, headache(s), night sweats, weakness Nose, Mouth, and Throat: ABSENT: sore throat Cardiovascular: PRESENT: edema. ABSENT: palpitations Respiratory: ABSENT: dyspnea Gastrointestinal: ABSENT: abdominal pain, diarrhea, nausea, vomiting Musculoskeletal: ABSENT: joint swelling Neurological: ABSENT: focal weakness, numbness, paresthesias Physical Exam Vital Signs: Temp Pulse Resp BP Pulse Ox 98.7 F 77 20 130/77 H 100 01/11/19 12:00 01/11/19 12:00 01/11/19 12:00 01/11/19 12:00 01/11/19 12:00 Intake & Output 0301/11/19 01/12/19 06:59 06:59 06:59 Weight 78.2 kg General appearance: PRESENT: no acute distress, cooperative Eye exam: PRESENT: PERRLA. ABSENT: scleral icterus Ear exam: PRESENT: TM's normal bilaterally Neck exam: ABSENT: full ROM, JVD, tenderness, thyromegaly, tracheal deviation Respiratory exam: PRESENT: clear to auscultation janis, unlabored. ABSENT: accessory muscle use Cardiovascular exam: PRESENT: RRR. ABSENT: gallop, rubs GI/Abdominal exam: PRESENT: normal bowel sounds, soft. ABSENT: organolmegaly, tenderness Extremities exam: PRESENT: tenderness. ABSENT: calf tenderness Skin exam: PRESENT: dry, normal color, warm - positive erythema of right lower extremity from knee to ankle. 1 sm x 1 cm open wound just proximal to the right ankle. Results Laboratory Results: 01/11/19 12:30 01/11/19 12:30 01/11/19 01/11/19 01/11/19 12:30 12:30 12:30 WBC 10.7 H RBC 3.25 L Hgb 11.0 L Hct 31.4 L MCV 97 MCH 33.9 H MCHC 35.1 RDW 13.8 Plt Count 416 Seg Neutrophils % 79.4 H Lymphocytes % 10.2 L Monocytes % 10.0 Eosinophils % 0.0 Basophils % 0.4 Absolute Neutrophils 8.5 H Absolute Lymphocytes 1.1 Absolute Monocytes 1.1 Absolute Eosinophils 0.0 Absolute Basophils 0.0 Sodium 133.6 L Potassium 4.5 Chloride 92 L Carbon Dioxide 31 H Anion Gap 11 BUN 24 H Creatinine 1.04 Est GFR ( Amer) > 60 Est GFR (Non-Af Amer) 56 L Glucose 110 Lactic Acid 1.1 Calcium 10.3 H Total Bilirubin 0.5 AST 34 ALT 40 Alkaline Phosphatase 136 H C-Reactive Protein 55.8 H Total Protein 6.3 Albumin 3.9 Impressions: Tibia/Fibula X-Ray 01/11/19 12:19 IMPRESSION: NO SIGNIFICANT RADIOGRAPHIC ABNORMALITY. Assessment & Plan - Diagnosis (1) Cellulitis of right lower extremity Is this a current diagnosis for this admission?: Yes Plan: We will admit to medical services. Surgical consult for possible further debridement. Patient has already failed outpatient clindamycin will start on vancomycin and Rocephin continue to follow cultures. Keep leg elevated as much as possible. (2) Lupus (systemic lupus erythematosus) Is this a current diagnosis for this admission?: Yes Plan: Patient stopped her home immune modifiers several days ago. We will continue to hold these continue her oral prednisone as she is try to decrease that in the past and had issues. (3) Hypertension Is this a current diagnosis for this admission?: Yes Plan: We will continue home medications and monitoring for now. - Time Time Spent: 50 to 70 Minutes Medications reviewed and adjusted accordingly: Yes Anticipated discharge: Home
[2019-01-11] MEDS: NORMAL SALINE 1000 ML 1,000 ML IV PRN (15:43)
--- NOTE | 2019-01-11 15:46 | RADIOLOGY REPORT (SQ) ---
EXAM DESCRIPTION: VENOUS UNILATERAL LOWER COMPLETED DATE/TIME: 01/11/2019 3:31 pm REASON FOR STUDY: rle swelling COMPARISON: None. TECHNIQUE: Dynamic and static henderson scale and color images acquired of the right leg venous system. S elected spectral images acquired with additional compression and augmentation maneuvers. The contrala teral common femoral vein and saphenofemoral junction were also imaged. Images stored on PACS. LIMITATIONS: None. FINDINGS: COMMON FEMORAL: Normal phasicity, compression and augmentation. No visualized echogenic ma terial on henderson scale. No defects on color images. FEMORAL: Normal compression and augmentation. No visualized echogenic material on henderson scale. No defe cts on color images. POPLITEAL: Normal compression, augmentation. No visualized echogenic material on henderson scale. No defec ts on color images. CALF VESSELS: Normal compression, augmentation. No visualized echogenic material on henderson scale. No de fects on color images. GSV and SSV: Normal compression, augmentation. No visualized echogenic material on henderson scale. No def ects on color images. ANY DEEP VENOUS INSUFFICIENCY: Not evaluated. ANY EVIDENCE OF POPLITEAL CYST: No. OTHER: Mild soft tissue edema at the knee. CONTRALATERAL COMMON FEMORAL VEIN AND SAPHENOFEMORAL JUNCTION: Normal phasicity, compression and augmentation. No visualized echogenic material on henderson scale. No de fects on color images. IMPRESSION: 1. NO EVIDENCE OF DVT OR SVT IN THE RIGHT LEG. 2. Mild soft tissue edema at the knee. TECHNICAL DOCUMENTATION: JOB ID: [id number] [employer]- All Rights Reserved Reading location - IP/workstation name: [email or web address]
[2019-01-11] MEDS ORDERED: METOPROLOL TARTRATE 50 MG TABLET PO SCH (18:00)
--- NOTE | 2019-01-11 18:14 | PDOC CONSULTATION ---
Consultation Consult Date: 01/11/19 Consult reason:: R Leg cellulitis History of Present Illness Admission Date/PCP: 01/11/19 14:25 LILLIANA MEJIA MD Patient complains of: right leg redness and swelling with pain History of Present Illness: AGUSTIN ORTEGA is a 53 year old female with a hx of multiple autoimmune diseases (lupus, lymphocytic colitis, hypothyroidism) on chronic daily steroid as well as several immunosuppressants who reports a hx of a trivial injury which occurred to the anterior middle third of the right leg one month ago. Since them she reports that the injury site has become worse with progressive redness, swelling, and pain associated with drainage from the skin injury site. She was seen by her PCP twice and placed on oral antibiotics (Keflex first, followed by Clindomycin) without improvement. She was referred to the Wound Clinic yesterday where she underwent debridment of the wound and recommended to come the ED. Today, she [resented to the ED and was admitted. Past Medical History Cardiac Medical History: Reports: Hypertension Denies: Coronary Artery Disease, Myocardial Infarction Pulmonary Medical History: Denies: Asthma, Bronchitis, Chronic Obstructive Pulmonary Disease (COPD), [place] Neurological Medical History: Denies: Seizures Musculoskeltal Medical History: Reports: Arthritis - LUPUS Hematology: Reports: Anemia Past Surgical History Past Surgical History: Reports: Hysterectomy Social History Lives with: Spouse/Significant other Smoking Status: Never Smoker Family History Family History: Reviewed & Not Pertinent Parental Family History Reviewed: No Children Family History Reviewed: No Sibling(s) Family History Reviewed.: No Medication/Allergy Allergies/Adverse Reactions: No Known Allergies Allergy (Unverified 01/11/19 11:49) Physical Exam Vital Signs: Temp Pulse Resp BP Pulse Ox 98.5 F 85 18 129/73 H 97 01/11/19 15:53 01/11/19 15:53 01/11/19 15:53 01/11/19 15:53 01/11/19 15:53 Intake & Output 01/10/19 01/11/19 01/12/19 06:59 06:59 06:59 Weight 78.2 kg General appearance: PRESENT: no acute distress Head exam: PRESENT: atraumatic Eye exam: PRESENT: EOMI Mouth exam: PRESENT: neck supple Neck exam: PRESENT: full ROM Respiratory exam: PRESENT: clear to auscultation janis Cardiovascular exam: PRESENT: RRR GI/Abdominal exam: PRESENT: normal bowel sounds, soft - obese Rectal exam: PRESENT: deferred Extremities exam: PRESENT: +2 edema - Right leg and foot non-pitting type; diffuse erythema extending from just below the knee to the dorsal forefoot; 1.5 cm open wound located in the anterior surface of the right leg middle third Results Laboratory Results: 01/11/19 12:30 01/11/19 12:30 01/11/19 01/11/19 01/11/19 12:30 12:30 12:30 WBC 10.7 H RBC 3.25 L Hgb 11.0 L Hct 31.4 L MCV 97 MCH 33.9 H MCHC 35.1 RDW 13.8 Plt Count 416 Seg Neutrophils % 79.4 H Lymphocytes % 10.2 L Monocytes % 10.0 Eosinophils % 0.0 Basophils % 0.4 Absolute Neutrophils 8.5 H Absolute Lymphocytes 1.1 Absolute Monocytes 1.1 Absolute Eosinophils 0.0 Absolute Basophils 0.0 Sodium 133.6 L Potassium 4.5 Chloride 92 L Carbon Dioxide 31 H Anion Gap 11 BUN 24 H Creatinine 1.04 Est GFR ( Amer) > 60 Est GFR (Non-Af Amer) 56 L Glucose 110 Lactic Acid 1.1 Calcium 10.3 H Total Bilirubin 0.5 AST 34 ALT 40 Alkaline Phosphatase 136 H C-Reactive Protein 55.8 H Total Protein 6.3 Albumin 3.9 Impressions: Venous Doppler Study 01/11/19 12:18 IMPRESSION: 1. NO EVIDENCE OF DVT OR SVT IN THE RIGHT LEG. 2. Mild soft tissue edema at the knee. Tibia/Fibula X-Ray 01/11/19 12:19 IMPRESSION: NO SIGNIFICANT RADIOGRAPHIC ABNORMALITY. Assessment & Plan - Diagnosis (1) Cellulitis of right lower extremity Is this a current diagnosis for this admission?: Yes (2) Hypertension Is this a current diagnosis for this admission?: Yes (3) Lupus (systemic lupus erythematosus) Qualifiers: Systemic lupus erythematosus type: unspecified Systemic lupus erythematosus organ involvement: unspecified Qualified Code(s): M32.9 - Systemic lupus erythematosus, unspecified Is this a current diagnosis for this admission?: Yes - Plan Summary Plan Summary: A/ Multiple autoimmune diseases (lupus, colitis and hypothyropidism) Chronic user of steroids and immunosuppressants Hx of trivial trauma of the middle third of the right leg anterior surface 1.5 cm in diameter Right leg cellulitis with redness, swelling, and pain Negative US RLE for DVT Negative Xray R leg for osteo-articular abnormalities or foreign bodies P/ Strict bedrest Right leg elevation at or above heart's level CT scan Right leg (knee to toes) with IV contrast to rule out a fluid collection or abscess which might require surgical drainage If a fluid collection deserving drainage is identified, this will be done in AM Continue IV abx (Ceftrizxone/Vanco) Add Flagyl for anaerobic coverage
[2019-01-11] MEDS: METRONIDAZOLE 500 MG/NS RTU 500 MG/100 ML RTUPB IV SCH (21:31)
--- NOTE | 2019-01-11 21:37 | RADIOLOGY REPORT (SQ) ---
CT LOWER EXTREMITY WITH IV CONTRAST HISTORY: cellulitis R leg. Limit CT from below knee to toes COMPARISON: None. TECHNIQUE: CT scan of the right lower extremity with IV contrast. This exam was performed according to our departmental dose-optimization program, which includes automated exposure control, adjustment of the mA and/or kV according to patient size and/or use of iterative reconstruction technique. FINDINGS: There is diffuse subcutaneous edema throughout the right lower extremity which may represent cellulitis. No hematoma, abscess, or focal fluid collection is identified. No radiopaque foreign body is seen. There is no cortical erosion or periosteal reaction to suggest acute osteomyelitis. No acute fracture or dislocation. The visualized muscles and tendons are grossly intact. IMPRESSION: 1. Diffuse swelling of the right lower extremity suggesting cellulitis. 2. No hematoma, abscess, or fluid collection is seen.
[2019-01-11] MEDS ORDERED: VANCOMYCIN HCL INJ 1000 MG VIAL IV SCH (22:00)
--- NOTE | 2019-01-11 22:32 | Progress Note ---
Provider Note Provider Note: Events noted. CT scan R leg demostrates no drainable fluid collection or abscess. Only diffuse soft tissue edema. A/ Right left cellulitis No drainable fluiod collection P/ No General Surgery intervention planned on this patient at this point NS wet-to-dry dressing changes right anterior leg wound BID Continue RLE elevation, strict bed rest, and current IV Abx regimen (rocefin, Vanco, Flagyl) Continue medical management
[2019-01-11] MEDS: DULOXETINE HCL 30 MG CAPSULE.DR PO SCH (22:46)
[2019-01-11] MEDS: METOPROLOL TARTRATE 50 MG TABLET PO SCH (22:47)
[2019-01-11] MEDS: FUROSEMIDE 40 MG TABLET PO SCH (22:47)
[2019-01-12] MEDS: METRONIDAZOLE 500 MG/NS RTU 500 MG/100 ML RTUPB IV SCH ×2 (01:15→10:22)
[2019-01-12] MEDS: VANCOMYCIN HCL 500 MG in DEXTROSE 5%-WATER 100 ML IV SCH ×2 (03:30→14:38)
[2019-01-12] MEDS: NORMAL SALINE 1000 ML 1,000 ML IV PRN (05:04)
[2019-01-12 06:47] LABS: ABSOLUTE BASOPHILS # (AUTO) 0.1 10^3/uL (0.0-0.2); ABSOLUTE LYMPHOCYTES (AUTO) 1.3 10^3/uL (0.5-4.7); ABSOLUTE MONOCYTES (AUTO) 0.9 10^3/uL (0.1-1.4); ABSOLUTE NEUT (AUTO) 6.9 10^3/uL (1.7-8.2); BASOPHILS % (AUTO) 0.6 % (0-2); HEMATOCRIT 25.3 % (36.0-47.0); MEAN CORPUSCULAR HEMOGLOBIN 33.3 pg (27.0-33.4); MEAN CORPUSCULAR HGB CONC 34.2 g/dL (32.0-36.0); MEAN CORPUSCULAR VOLUME 97 fl (80-97); MONOCYTES % (AUTO) 10.2 % (3-13); PLATELET COUNT 343 10^3/uL (150-450); RED CELL DISTRIBUTION WIDTH 13.7 % (11.5-14.0); SEGMENTED NEUTROPHILS % (AUTO) 75.2 % (42-78); TOTAL CELLS COUNTED % (AUTO) 100 %; WHITE BLOOD COUNT 9.2 10^3/uL (4.0-10.5)
[2019-01-12 07:08] LABS: ANION GAP 10 (5-19); BLOOD UREA NITROGEN 21 mg/dL (7-20); CALCIUM 8.7 mg/dL (8.4-10.2); CARBON DIOXIDE 28 mmol/L (22-30); CHLORIDE 95 mmol/L (98-107); GLUCOSE 107 mg/dL (75-110); SODIUM 132.8 mmol/L (137-145)
[2019-01-12 07:17] LABS: POTASSIUM 3.5 mmol/L (3.6-5.0)
[2019-01-12 07:21] LABS: HEMOGLOBIN 8.7 g/dL (12.0-15.5)
[2019-01-12] MEDS: CEFTRIAXONE 2 GM/D5W RTU 2 GM/50 ML RTUPB IV SCH (09:10)
[2019-01-12] MEDS: PREDNISONE 5 MG TABLET PO SCH (09:13)
[2019-01-12] MEDS: LEVOTHYROXINE SODIUM 0.05 MG TABLET PO SCH (09:13)
[2019-01-12] MEDS: HYDROCHLOROTHIAZIDE 25 MG TABLET PO SCH (09:13)
[2019-01-12] MEDS: AMLODIPINE BESYLATE 10 MG TABLET PO SCH (09:13)
[2019-01-12] MEDS: METOPROLOL TARTRATE 50 MG TABLET PO SCH ×2 (09:13→21:44)
[2019-01-12] MEDS: LISINOPRIL 10 MG TABLET PO SCH (09:14)
[2019-01-12] MEDS: ENOXAPARIN SODIUM INJ 40 MG/0.4 ML DISP.SYRIN SUBCUT SCH (09:20)
[2019-01-12] MEDS ORDERED: FUROSEMIDE 20 MG TABLET PO SCH (10:00)
[2019-01-12] MEDS ORDERED: DULOXETINE HCL 30 MG CAPSULE.DR PO SCH (10:00)
[2019-01-12] MEDS ORDERED: (PENDING PHARMACY ID) (Duloxetine Hcl [Duloxetine Hcl] 60 MG) PO SCH (10:00)
[2019-01-12] MEDS ORDERED: BUDESONIDE 9 MG PO SCH (10:00)
[2019-01-12] MEDS ORDERED: (PENDING PHARMACY ID) (Lisinopril/Hydrochlorothiazide [Lisinopril-Hctz 20-25 Mg Tab] 1 EAC PO SCH (10:00)
--- NOTE | 2019-01-12 10:14 | PDOC PROGRESS REPORT ---
Subjective Progress Note for:: 01/12/19 Subjective:: Some diffuse right leg pain. Reason For Visit: CELLULITIS OF RIGHT LOWER LEG Physical Exam Vital Signs: Temp Pulse Resp BP Pulse Ox 98.6 F 86 16 133/68 H 96 01/12/19 07:37 01/12/19 07:37 01/12/19 07:37 01/12/19 07:37 01/12/19 07:37 Intake & Output 01/11/19 01/12/19 01/13/19 06:59 06:59 06:59 Intake Total 1818 Balance 1818 Weight 78.9 kg General appearance: PRESENT: no acute distress, cooperative Extremities exam: PRESENT: other - Right lower leg with diffuse moderate edema with erythema. No fluctuance. No crepitus. Small open wound at site of prior debridement that appears clean with no palpable surrounding fluctuance. In discussion with the patient the erythema appears to have decreased. The edema only mildly improved. Results Laboratory Results: 01/12/19 05:48 01/12/19 05:48 01/11/19 01/11/19 01/11/19 12:30 12:30 12:30 WBC 10.7 H RBC 3.25 L Hgb 11.0 L Hct 31.4 L MCV 97 MCH 33.9 H MCHC 35.1 RDW 13.8 Plt Count 416 Seg Neutrophils % 79.4 H Lymphocytes % 10.2 L Monocytes % 10.0 Eosinophils % 0.0 Basophils % 0.4 Absolute Neutrophils 8.5 H Absolute Lymphocytes 1.1 Absolute Monocytes 1.1 Absolute Eosinophils 0.0 Absolute Basophils 0.0 Sodium 133.6 L Potassium 4.5 Chloride 92 L Carbon Dioxide 31 H Anion Gap 11 BUN 24 H Creatinine 1.04 Est GFR ( Amer) > 60 Est GFR (Non-Af Amer) 56 L Glucose 110 Lactic Acid 1.1 Calcium 10.3 H Magnesium Total Bilirubin 0.5 AST 34 ALT 40 Alkaline Phosphatase 136 H C-Reactive Protein 55.8 H Total Protein 6.3 Albumin 3.9 01/12/19 01/12/19 05:48 05:48 WBC 9.2 RBC 2.60 L Hgb 8.7 L D Hct 25.3 L MCV 97 MCH 33.3 MCHC 34.2 RDW 13.7 Plt Count 343 Seg Neutrophils % 75.2 Lymphocytes % 14.0 Monocytes % 10.2 Eosinophils % 0.0 Basophils % 0.6 Absolute Neutrophils 6.9 Absolute Lymphocytes 1.3 Absolute Monocytes 0.9 Absolute Eosinophils 0.0 Absolute Basophils 0.1 Sodium 132.8 L Potassium 3.5 L D Chloride 95 L Carbon Dioxide 28 Anion Gap 10 BUN 21 H Creatinine 0.94 Est GFR ( Amer) > 60 Est GFR (Non-Af Amer) > 60 Glucose 107 Lactic Acid Calcium 8.7 Magnesium 1.7 Total Bilirubin AST ALT Alkaline Phosphatase C-Reactive Protein Total Protein Albumin Impressions: Lower Extremity CT 01/11/19 00:00 IMPRESSION: 1. Diffuse swelling of the right lower extremity suggesting cellulitis. 2. No hematoma, abscess, or fluid collection is seen. Venous Doppler Study 01/11/19 12:18 IMPRESSION: 1. NO EVIDENCE OF DVT OR SVT IN THE RIGHT LEG. 2. Mild soft tissue edema at the knee. Tibia/Fibula X-Ray 01/11/19 12:19 IMPRESSION: NO SIGNIFICANT RADIOGRAPHIC ABNORMALITY. Assessment & Plan - Diagnosis (1) Cellulitis of right lower extremity Is this a current diagnosis for this admission?: Yes Plan: I do not see evidence of an undrained abscess nor necrotic tissue for debridement. Recommend continued medical management of her cellulitis. Patient has not been elevating her leg and I have discussed this with the nursing staff to keep the leg elevated while in bed. Encourage ambulation. Avoid sitting position however. Surgical service will sign off. Reconsult if there is any issues.
[2019-01-12] MEDS: TRAMADOL HCL 50 MG TABLET PO PRN ×2 (14:34→20:54)
[2019-01-12] MEDS: IBUPROFEN 600 MG TABLET PO PRN (16:42)
--- NOTE | 2019-01-12 20:54 | PDOC PROGRESS REPORT ---
Subjective Progress Note for:: 01/12/19 Subjective:: AGUSTIN ORTEGA is a 53 year old female with a PMH lupus and HTN admitted to hospitalist service for cellulitis of the RLE. She has been treated with Rocephin and Vancomycin. The patient was seen this morning on rounds. She is resting comfortably in bed. She states her RLE appears less erythematous and edematous. The patient is very pleased with her progress thus far. Plan to continue current abx regimen. Surgery signed off - no recommended debridement or wound for drainage. Encourage RLE elevation. Reason For Visit: CELLULITIS OF RIGHT LOWER LEG Physical Exam Vital Signs: Temp Pulse Resp BP Pulse Ox 98.9 F 88 16 135/74 H 98 01/12/19 15:22 01/12/19 15:22 01/12/19 15:22 01/12/19 15:22 01/12/19 15:22 Intake & Output 01/11/19 01/12/19 01/13/19 06:59 06:59 06:59 Intake Total 1818 486 Balance 1818 486 Weight 78.9 kg General appearance: PRESENT: obese Eye exam: PRESENT: conjunctiva pink, PERRLA Mouth exam: PRESENT: moist, tongue midline Neck exam: PRESENT: full ROM Respiratory exam: PRESENT: clear to auscultation janis, symmetrical, unlabored Cardiovascular exam: PRESENT: RRR Pulses: PRESENT: normal radial pulses, normal dorsalis pedis pul Vascular exam: PRESENT: normal capillary refill GI/Abdominal exam: PRESENT: soft. ABSENT: distended, tenderness Rectal exam: PRESENT: deferred Extremities exam: PRESENT: calf tenderness, tenderness - RLE Musculoskeletal exam: PRESENT: tenderness - RLE. ABSENT: normal inspection Neurological exam: PRESENT: alert, awake, oriented to person, oriented to place, oriented to time, oriented to situation Psychiatric exam: PRESENT: appropriate affect Skin exam: PRESENT: erythema - RLE. ABSENT: normal color Results Laboratory Results: 01/12/19 05:48 01/12/19 05:48 01/12/19 01/12/19 05:48 05:48 WBC 9.2 RBC 2.60 L Hgb 8.7 L D Hct 25.3 L MCV 97 MCH 33.3 MCHC 34.2 RDW 13.7 Plt Count 343 Seg Neutrophils % 75.2 Lymphocytes % 14.0 Monocytes % 10.2 Eosinophils % 0.0 Basophils % 0.6 Absolute Neutrophils 6.9 Absolute Lymphocytes 1.3 Absolute Monocytes 0.9 Absolute Eosinophils 0.0 Absolute Basophils 0.1 Sodium 132.8 L Potassium 3.5 L D Chloride 95 L Carbon Dioxide 28 Anion Gap 10 BUN 21 H Creatinine 0.94 Est GFR ( Amer) > 60 Est GFR (Non-Af Amer) > 60 Glucose 107 Calcium 8.7 Magnesium 1.7 Impressions: Lower Extremity CT 01/11/19 00:00 IMPRESSION: 1. Diffuse swelling of the right lower extremity suggesting cellulitis. 2. No hematoma, abscess, or fluid collection is seen. Venous Doppler Study 01/11/19 12:18 IMPRESSION: 1. NO EVIDENCE OF DVT OR SVT IN THE RIGHT LEG. 2. Mild soft tissue edema at the knee. Tibia/Fibula X-Ray 01/11/19 12:19 IMPRESSION: NO SIGNIFICANT RADIOGRAPHIC ABNORMALITY. Status: Imported from PACS Assessment & Plan - Diagnosis (1) Cellulitis of right lower extremity Is this a current diagnosis for this admission?: Yes Plan: Patient failed outpatient clindamycin Afebrile. Non-toxic appearing. Open wound on anterior RLE is open, not draining, smaller in size (per patient) Continue vancomycin and Rocephin Leukocytosis improved 10.2-->9 Keep leg elevated as much as possible. Wound culture pending (2) Hypertension Is this a current diagnosis for this admission?: Yes Plan: PMH HTN Continue home dose anti-HTN (3) Lupus (systemic lupus erythematosus) Qualifiers: Systemic lupus erythematosus type: unspecified Systemic lupus erythematosus organ involvement: unspecified Qualified Code(s): M32.9 - Systemic lupus erythematosus, unspecified Is this a current diagnosis for this admission?: Yes Plan: Patient stopped her home immune modifiers several days ago. Continue to hold the immunotherapy medications Will continue her oral prednisone as she has tried to decrease that in the past and lupus flare ups - Time Time Spent with patient: 15-24 minutes Medications reviewed and adjusted accordingly: Yes Anticipated discharge: Home Within: within 72 hours - Inpatient Certification Based on my medical assessment, after consideration of the patient's comorbidities, presenting symptoms, or acuity I expect that the services needed warrant INPATIENT care.: Yes I certify that my determination is in accordance with my understanding of Medicare's requirements for reasonable and necessary INPATIENT services [42 CFR 412.3e].: Yes Medical Necessity: Need for IV Antibiotics
[2019-01-12] MEDS: FUROSEMIDE 40 MG TABLET PO SCH (21:44)
[2019-01-12] MEDS: DULOXETINE HCL 30 MG CAPSULE.DR PO SCH (21:44)
[2019-01-13] MEDS: NORMAL SALINE 1000 ML 1,000 ML IV PRN ×2 (01:04→14:46)
[2019-01-13] MEDS: VANCOMYCIN HCL 500 MG in DEXTROSE 5%-WATER 100 ML IV SCH ×2 (02:59→15:28)
[2019-01-13] MEDS: CEFTRIAXONE 2 GM/D5W RTU 2 GM/50 ML RTUPB IV SCH (09:21)
[2019-01-13] MEDS: METOPROLOL TARTRATE 50 MG TABLET PO SCH ×2 (09:22→21:48)
[2019-01-13] MEDS: LISINOPRIL 10 MG TABLET PO SCH (09:23)
[2019-01-13] MEDS: AMLODIPINE BESYLATE 10 MG TABLET PO SCH (09:23)
[2019-01-13] MEDS: LEVOTHYROXINE SODIUM 0.05 MG TABLET PO SCH (09:23)
[2019-01-13] MEDS: PREDNISONE 5 MG TABLET PO SCH (09:23)
[2019-01-13] MEDS: HYDROCHLOROTHIAZIDE 25 MG TABLET PO SCH (09:27)
[2019-01-13] MEDS: ENOXAPARIN SODIUM INJ 40 MG/0.4 ML DISP.SYRIN SUBCUT SCH (09:27)
[2019-01-13 15:06] LABS: VANCOMYCIN,TROUGH 12.9 ug/mL (5.0-20.0)
[2019-01-13] MEDS: TRAMADOL HCL 50 MG TABLET PO PRN (19:56)
--- NOTE | 2019-01-13 21:03 | PDOC PROGRESS REPORT ---
Subjective Progress Note for:: 01/13/19 Subjective:: AGUSTIN ORTEGA is a 53 year old female with a PMH lupus and HTN admitted to hospitalist service for cellulitis of the RLE. She has been treated with Rocephin and Vancomycin. The patient was seen this morning on rounds. She is resting comfortably in bed. RLE appears less erythematous and edematous compared to yesterday. There is still circumfrential erythema and mild edema to the affected area. (+) DP and PT pulses. Plan to continue current IV abx regimen. Encourage RLE elevation. The patient is very pleased with her progress thus far. Reason For Visit: CELLULITIS OF RIGHT LOWER LEG Physical Exam Vital Signs: Temp Pulse Resp BP Pulse Ox 98.6 F 87 16 104/66 95 01/13/19 15:26 01/13/19 15:26 01/13/19 15:26 01/13/19 15:26 01/13/19 15:26 Intake & Output 01/12/19 01/13/19 01/14/19 06:59 06:59 06:59 Intake Total 1818 2409 1655 Balance 1818 2409 1655 Weight 78.9 kg 81.1 kg General appearance: PRESENT: no acute distress, well-developed Head exam: PRESENT: atraumatic Eye exam: PRESENT: conjunctiva pink, PERRLA Mouth exam: PRESENT: moist, tongue midline Neck exam: PRESENT: full ROM Respiratory exam: PRESENT: symmetrical, unlabored Cardiovascular exam: PRESENT: RRR Pulses: PRESENT: normal radial pulses, normal dorsalis pedis pul Vascular exam: PRESENT: normal capillary refill GI/Abdominal exam: PRESENT: soft. ABSENT: distended Rectal exam: PRESENT: deferred Extremities exam: PRESENT: full ROM, tenderness - RLE. ABSENT: pedal edema Musculoskeletal exam: PRESENT: ambulatory, full ROM. ABSENT: normal inspection - erythema and mild edema to RLE Neurological exam: PRESENT: alert, awake, oriented to person, oriented to place, oriented to time, oriented to situation Psychiatric exam: PRESENT: appropriate affect Skin exam: PRESENT: dry, erythema - to affected area only (RLE, below the knee), intact Results Laboratory Results: 01/12/19 05:48 01/12/19 05:48 Impressions: Lower Extremity CT 01/11/19 00:00 IMPRESSION: 1. Diffuse swelling of the right lower extremity suggesting cellulitis. 2. No hematoma, abscess, or fluid collection is seen. Venous Doppler Study 01/11/19 12:18 IMPRESSION: 1. NO EVIDENCE OF DVT OR SVT IN THE RIGHT LEG. 2. Mild soft tissue edema at the knee. Tibia/Fibula X-Ray 01/11/19 12:19 IMPRESSION: NO SIGNIFICANT RADIOGRAPHIC ABNORMALITY. Status: Imported from PACS Assessment & Plan - Diagnosis (1) Cellulitis of right lower extremity Is this a current diagnosis for this admission?: Yes Plan: Improving Secondary to traumatic injury to RLE Open wound on anterior RLE is open, not draining, smaller in size (per patient) Continue vancomycin and Rocephin Patient failed outpatient clindamycin Afebrile. Non-toxic appearing. Leukocytosis improved 10.2-->9 Keep leg elevated as much as possible. Wound culture pending (2) Hypertension Is this a current diagnosis for this admission?: Yes Plan: PMH HTN Continue home dose anti-HTN (3) Lupus (systemic lupus erythematosus) Qualifiers: Systemic lupus erythematosus type: unspecified Systemic lupus erythematosus organ involvement: unspecified Qualified Code(s): M32.9 - Systemic lupus erythematosus, unspecified Is this a current diagnosis for this admission?: Yes Plan: Patient stopped her home immune modifiers several days ago. Continue to hold the immunotherapy medications Will continue her oral prednisone as she has tried to decrease that in the past, resulting in lupus flare ups - Time Time Spent with patient: 15-24 minutes Medications reviewed and adjusted accordingly: Yes Anticipated discharge: Home Within: within 48 hours - Inpatient Certification Based on my medical assessment, after consideration of the patient's comorbidities, presenting symptoms, or acuity I expect that the services needed warrant INPATIENT care.: Yes I certify that my determination is in accordance with my understanding of Medicare's requirements for reasonable and necessary INPATIENT services [42 CFR 412.3e].: Yes Medical Necessity: Need for IV Antibiotics
[2019-01-13] MEDS: DULOXETINE HCL 30 MG CAPSULE.DR PO SCH (21:49)
[2019-01-13] MEDS: FUROSEMIDE 40 MG TABLET PO SCH (21:49)
[2019-01-13] MEDS: IBUPROFEN 600 MG TABLET PO PRN (23:32)
[2019-01-14] MEDS: VANCOMYCIN HCL 500 MG in DEXTROSE 5%-WATER 100 ML IV SCH (02:47)
[2019-01-14 06:37] LABS: HEMATOCRIT 27.6 % (36.0-47.0); HEMOGLOBIN 9.4 g/dL (12.0-15.5); MEAN CORPUSCULAR HEMOGLOBIN 33.4 pg (27.0-33.4); MEAN CORPUSCULAR VOLUME 98 fl (80-97); PLATELET COUNT 347 10^3/uL (150-450); RED CELL DISTRIBUTION WIDTH 13.7 % (11.5-14.0); WHITE BLOOD COUNT 8.4 10^3/uL (4.0-10.5)
[2019-01-14 07:09] LABS: ALANINE AMINOTRANSFERASE 38 U/L (9-52); ALBUMIN 2.9 g/dL (3.5-5.0); ALKALINE PHOSPHATASE 101 U/L (38-126); ANION GAP 9 (5-19); ASPARTATE AMINO TRANSFERASE 23 U/L (14-36); BILIRUBIN,DIRECT 0.1 mg/dL (0.0-0.4); BILIRUBIN,TOTAL 0.1 mg/dL (0.2-1.3); BLOOD UREA NITROGEN 14 mg/dL (7-20); C-REACTIVE PROTEIN 35.6 mg/L (<10.0); CALCIUM 8.6 mg/dL (8.4-10.2); CARBON DIOXIDE 26 mmol/L (22-30); CHLORIDE 96 mmol/L (98-107); GLUCOSE 112 mg/dL (75-110); POTASSIUM 3.4 mmol/L (3.6-5.0); SODIUM 130.9 mmol/L (137-145); TOTAL PROTEIN 5.3 g/dL (6.3-8.2)
[2019-01-14 07:18] LABS: ERYTHROCYTE SEDIMENTATION RATE 106 mm/hr (0-30)
[2019-01-14] MEDS: PREDNISONE 5 MG TABLET PO SCH (09:59)
[2019-01-14] MEDS: LEVOTHYROXINE SODIUM 0.05 MG TABLET PO SCH (09:59)
[2019-01-14] MEDS: METOPROLOL TARTRATE 50 MG TABLET PO SCH (09:59)
[2019-01-14] MEDS: HYDROCHLOROTHIAZIDE 25 MG TABLET PO SCH (09:59)
[2019-01-14] MEDS: AMLODIPINE BESYLATE 10 MG TABLET PO SCH (09:59)
[2019-01-14] MEDS: LISINOPRIL 10 MG TABLET PO SCH (10:00)
[2019-01-14] MEDS: ENOXAPARIN SODIUM INJ 40 MG/0.4 ML DISP.SYRIN SUBCUT SCH (10:00)
[2019-01-14] MEDS: CEFTRIAXONE 2 GM/D5W RTU 2 GM/50 ML RTUPB IV SCH (10:01)
[2019-01-14] MEDS ORDERED: MAGNESIUM SULFATE/D5W 1 GM/100 ML RTUPB IV ONE (10:42)
[2019-01-14] MEDS ORDERED: POTASSIUM CHLORIDE 10 MEQ CAPSULE.ER PO ONE (10:43)
[2019-01-14 12:18] VITALS: BP 125/76
[2019-01-14] MEDS ORDERED: AMOXICILLIN TRIHYDRATE 500 MG CAPSULE PO SCH (15:00)
[2019-01-14] MEDS ORDERED: SULFAMETHOXAZOLE/TRIMETHOPRIM 800-160 MG TABLET PO ONE (15:00)
[2019-01-14] MEDS ORDERED: SULFAMETHOXAZOLE/TRIMETHOPRIM 800-160 MG TABLET PO SCH (18:00)
== END 2019-01-14 15:50 | disposition home or self-care (01) | DRG 603 ==
LOC: ER 11:47 → EH 14:25 → 5 16:38
PROVIDERS: ADMIT Internal Medicine; ATTEND Internal Medicine
DX: L03.115 Cellulitis of right lower limb (principal); M32.9 Systemic lupus erythematosus, unspecified; I10 Essential (primary) hypertension; M19.90 Unspecified osteoarthritis, unspecified site; E03.9 Hypothyroidism, unspecified; S81.801A Unspecified open wound, right lower leg, initial encounter; W22.03XA Walked into furniture, initial encounter; Z90.710 Acquired absence of both cervix and uterus; Z79.899 Other long term (current) drug therapy; Z83.3 Family history of diabetes mellitus; Z79.52 Long term (current) use of systemic steroids
CPT/HCPCS: 36415; 80048; 80053; 80202; 83605; 83735; 84443; 85025; 85027; 85652; 86140; 87040; 87070; 87205; 93971; 96365; 99285; J0696; J1650; J3370; J3475; J3490; J7030; J7512

== ENCOUNTER → 2019-01-18 | Outpatient (CLI) | payer BC ==
--- NOTE | 2019-01-19 09:27 | XCELERA REPORT ---
[address] [address] Lower Extremity Arterial Evaluation Name: AGUSTIN ORTEGA Age: 53 yrs Gender: Female : 1965 Patient Status: Outpatient Patient Location: Study Date: 01/18/2019 09:24 AM Procedure: A color flow and duplex scan of the lower extremity arteries was performed bilaterally with velocity and waveform anaylsis. 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 Ankle Brachial index not obtained due to bandage. Left Side Arterial Evaluation Normal velocity and triphasic waveforms noted from the Common Femoral artery to the infrageniculate vessels . Ankle Brachial index not obtained due to bandage. Interpretation Summary No hemodynamically significant lesions in the bilateral lower extremities, on duplex imaging, at rest. : MAJOR CAMP > Kj Pollard
== END ==
LOC: SP 09:15
PROVIDERS: ATTEND Nurse Practitioner Family
DX: L97.212 Non-pressure chronic ulcer of right calf with fat layer exposed (principal)
CPT/HCPCS: 93925

== ENCOUNTER 2019-08-20 10:59 | Emergency (ER) | payer BC ==
[2019-08-20 11:29] LABS: ABSOLUTE BASOPHILS # (AUTO) 0.1 10^3/uL (0.0-0.2); ABSOLUTE LYMPHOCYTES (AUTO) 0.5 10^3/uL (0.5-4.7); ABSOLUTE MONOCYTES (AUTO) 0.5 10^3/uL (0.1-1.4); ABSOLUTE NEUT (AUTO) 3.8 10^3/uL (1.7-8.2); BASOPHILS % (AUTO) 1.3 % (0-2); HEMATOCRIT 28.9 % (36.0-47.0); HEMOGLOBIN 9.8 g/dL (12.0-15.5); LYMPHOCYTES % (AUTO) 10.2 % (13-45); MEAN CORPUSCULAR HEMOGLOBIN 32.4 pg (27.0-33.4); MEAN CORPUSCULAR HGB CONC 33.9 g/dL (32.0-36.0); MEAN CORPUSCULAR VOLUME 96 fl (80-97); MONOCYTES % (AUTO) 10.3 % (3-13); PLATELET COUNT 372 10^3/uL (150-450); RED BLOOD COUNT 3.02 10^6/uL (3.72-5.28); RED CELL DISTRIBUTION WIDTH 13.7 % (11.5-14.0); SEGMENTED NEUTROPHILS % (AUTO) 78.2 % (42-78); TOTAL CELLS COUNTED % (AUTO) 100 %; WHITE BLOOD COUNT 4.8 10^3/uL (4.0-10.5)
--- NOTE | 2019-08-20 11:30 | ER Document Report ---
ED General - General Chief Complaint: Shoulder Pain Stated Complaint: FALL/SHOULDER PAIN Time Seen by Provider: 08/20/19 11:03 Primary Care Provider: LILLIANA MEJIA MD [Primary Care Provider] - Follow up tomorrow DOMINICK GRANT JR, DO [ACTIVE PROVISIONAL STAFF] - Follow up in 3-5 days Mode of Arrival: Medic Information source: Patient, Relative, Emergency Med Personnel Notes: 54-year-old female with hypertension, hypothyroidism, lupus, chronic colitis presents after a fall that occurred just prior to arrival. Patient states that she was walking into work this morning when she felt lightheaded, tripped and fell striking her head against a glass door. She denies loss of consciousness. Patient reports that her blood pressure has been running low over the last 4 months but she continues to take amlodipine, lisinopril and metoprolol. She denies any preceding chest pain, shortness of breath, visual changes. She denies any recent illness. Patient currently complaining of a headache, right shoulder pain. TRAVEL OUTSIDE OF THE [place] IN LAST 30 DAYS: No - HPI Onset: Just prior to arrival Onset/Duration: Sudden Quality of pain: Achy, Throbbing Severity: Moderate Associated symptoms: Headache, Other - Dizziness. denies: Body/muscle aches, Chest pain, Nausea, Rhinnorhea Exacerbated by: Denies Relieved by: Denies Similar symptoms previously: Yes Recently seen / treated by doctor: No - Related Data Allergies/Adverse Reactions: No Known Allergies Allergy (Unverified 01/11/19 11:49) Past Medical History - General Information source: Patient - Social History Smoking Status: Never Smoker Chew tobacco use (# tins/day): No Frequency of alcohol use: None Drug Abuse: None Lives with: Family Family History: Reviewed & Not Pertinent Patient has suicidal ideation: No Patient has homicidal ideation: No - Past Medical History Cardiac Medical History: Reports: Hx Hypertension Denies: Hx Coronary Artery Disease, Hx Heart Attack Pulmonary Medical History: Denies: Hx Asthma, Hx Bronchitis, Hx COPD, Hx Pneumonia Neurological Medical History: Denies: Hx Cerebrovascular Accident, Hx Seizures Renal/ Medical History: Denies: Hx Peritoneal Dialysis Musculoskeletal Medical History: Reports Hx Arthritis - LUPUS Past Surgical History: Reports: Hx Hysterectomy - Immunizations Hx Diphtheria, Pertussis, Tetanus Vaccination: Yes Review of Systems - Review of Systems Constitutional: denies: Weakness EENT: denies: Blurred vision Cardiovascular: Dizziness, Lightheaded. denies: Chest pain, Palpitations Respiratory: denies: Short of breath Gastrointestinal: denies: Abdominal pain Genitourinary: denies: Dysuria Female Genitourinary: No symptoms reported Musculoskeletal: Muscle pain Skin: Lesions - Left lower extremity wound undergoing wound care Neurological/Psychological: Headaches. denies: Lost consciousness -: Yes All other systems reviewed and negative Physical Exam - Vital signs Vitals: Temp BP 98.3 F 84/59 L 08/20/19 11:06 08/20/19 11:06 - Notes Notes: PHYSICAL EXAMINATION: GENERAL: Well-appearing, well-nourished and in no acute distress. On backboard. GCS 15 HEAD: 2 cm linear laceration to the right parietal scalp, no cephalohematoma. EYES: Pupils equal round and reactive to light, extraocular movements intact, sclera anicteric, conjunctiva are normal. ENT: Nares patent, oropharynx clear without exudates. Moist mucous membranes. No hemanotympanum . No blood in nares. No dental fracture NECK: Normal range of motion, supple without lymphadenopathy. Trachea midline. No midline tenderness. LUNGS: Breath sounds clear to auscultation bilaterally and equal. No wheezes rales or rhonchi. HEART: Regular rate and rhythm without murmurs. Pulses intact all throughout. ABDOMEN: Soft, nontender, nondistended abdomen. No guarding, no rebound. No masses appreciated. Musculoskeletal: Normal range of motion, no pitting or edema. No cyanosis. Hip non tender, stable. NEUROLOGICAL: Cranial nerves grossly intact. Normal speech, normal gait. Normal sensory, motor, and reflex exams. Right shoulderno obvious deformity, limited range of motion. PSYCH: Normal mood, normal affect. SKIN: Laceration right parietal scalp, skin tear right upper extremityforearm Course - Re-evaluation Re-evalutation: Laboratory 08/20/19 08/20/19 08/20/19 10:31 10:31 10:31 WBC 4.8 RBC 3.02 L Hgb 9.8 L Hct 28.9 L MCV 96 MCH 32.4 MCHC 33.9 RDW 13.7 Plt Count 372 Lymph % (Auto) 10.2 L [place] % (Auto) 10.3 Eos % (Auto) 0.0 Baso % (Auto) 1.3 Absolute Neuts (auto) 3.8 Absolute Lymphs (auto) 0.5 Absolute Monos (auto) 0.5 Absolute Eos (auto) 0.0 Absolute Basos (auto) 0.1 Seg Neutrophils % 78.2 H Sodium 124.2 L Potassium 4.3 Chloride 85 L Carbon Dioxide 22 Anion Gap 17 BUN 16 Creatinine 1.48 H Est GFR ( Amer) 45 L Est GFR (MDRD) Non-Af 37 L Glucose 89 Calcium 8.7 Magnesium Total Bilirubin 0.3 Direct Bilirubin 0.3 Neonat Total Bilirubin Not Reportable Neonat Direct Bilirubin Not Reportable Neonat Indirect Bili Not Reportable AST 53 H ALT 26 Alkaline Phosphatase 122 Troponin I 0.087 Total Protein 5.5 L Albumin 3.2 L Urine Color Urine Appearance Urine pH Ur Specific [place] Urine Protein Urine Glucose (UA) Urine Ketones Urine Blood Urine Nitrite Urine Bilirubin Urine Urobilinogen Ur Leukocyte Esterase Urine WBC (Auto) Urine RBC (Auto) U Hyaline Cast (Auto) Squamous Epi Cells Auto Urine Mucus (Auto) Urine Ascorbic Acid Urine Opiates Screen Urine Methadone Screen Ur Barbiturates Screen Ur Phencyclidine Scrn Ur Amphetamines Screen U Benzodiazepines Scrn Urine Cocaine Screen U Marijuana (THC) Screen Serum Alcohol 57 08/20/19 08/20/19 08/20/19 10:31 12:04 12:04 WBC RBC Hgb Hct MCV MCH MCHC RDW Plt Count Lymph % (Auto) [place] % (Auto) Eos % (Auto) Baso % (Auto) Absolute Neuts (auto) Absolute Lymphs (auto) Absolute Monos (auto) Absolute Eos (auto) Absolute Basos (auto) Seg Neutrophils % Sodium Potassium Chloride Carbon Dioxide Anion Gap BUN Creatinine Est GFR ( Amer) Est GFR (MDRD) Non-Af Glucose Calcium Magnesium 1.3 L Total Bilirubin Direct Bilirubin Neonat Total Bilirubin Neonat Direct Bilirubin Neonat Indirect Bili AST ALT Alkaline Phosphatase Troponin I Total Protein Albumin Urine Color YELLOW Urine Appearance SLIGHTLY-CLOUDY Urine pH 5.0 Ur Specific [place] 1.011 Urine Protein NEGATIVE Urine Glucose (UA) NEGATIVE Urine Ketones NEGATIVE Urine Blood NEGATIVE Urine Nitrite NEGATIVE Urine Bilirubin NEGATIVE Urine Urobilinogen NEGATIVE Ur Leukocyte Esterase NEGATIVE Urine WBC (Auto) 3 Urine RBC (Auto) 1 U Hyaline Cast (Auto) 30 Squamous Epi Cells Auto 8 Urine Mucus (Auto) RARE Urine Ascorbic Acid NEGATIVE Urine Opiates Screen UNCONFIRMED POSITIVE Urine Methadone Screen NEGATIVE Ur Barbiturates Screen NEGATIVE Ur Phencyclidine Scrn NEGATIVE Ur Amphetamines Screen NEGATIVE U Benzodiazepines Scrn NEGATIVE Urine Cocaine Screen NEGATIVE U Marijuana (THC) Screen NEGATIVE Serum Alcohol Head CT 08/20/19 11:14 IMPRESSION: NORMAL BRAIN CT WITHOUT CONTRAST. EVIDENCE OF ACUTE STROKE: NO. Shoulder X-Ray 08/20/19 11:14 IMPRESSION: 1 part fracture surgical neck. Temp Pulse Resp BP Pulse Ox 98.3 F 13 93/62 L 97 08/20/19 11:06 08/20/19 13:00 08/20/19 12:01 08/20/19 13:00 08/20/19 11:30 54-year-old female presents after a trip and fall that occurred just prior to arrival. Vital signs reviewed and patient is hypotensive. When questioned patient reports that she has had low blood pressure for several months. She takes amlodipine, lisinopril and metoprolol every morning. She does not check her blood pressure daily. She denies any preceding chest pain, shortness of breath. Patient does have limited range of motion to the right shoulder. She has a laceration to her scalp and skin tears to her right forearm. IV fluids initiated. EKG shows the patient to be in normal sinus rhythm QTc 501. 08/20/19 14:19 Patient reevaluated and blood pressure is improved after receiving IV fluids. X-ray of the right shoulder was obtained and shows a fracture through the surgical neck. 08/20/19 15:30 2 mariam placed. Repeat blood pressure is 94/68. Patient reports improvement of her dizziness. We discussed at length that she should hold her blood pressure medication for any systolic blood pressure less than 120. Patient reports chronic hyponatremia, hypomagnesemia. Patient found to have alcohol and opiates on board. 08/20/19 15:37 Patient was provided a sling. She was ambulated without difficulty prior to discharge. Daughter is at the bedside and both patient and daughter are comfortable with discharge home. I have provided the patient copies of her lab work performed today to bring to her primary care physician tomorrow. - Vital Signs Vital signs: Temp Pulse Resp BP Pulse Ox 98.3 F 12 99/72 L 97 08/20/19 11:06 08/20/19 15:28 08/20/19 15:28 08/20/19 15:28 - Laboratory Result Diagrams: 08/20/19 10:31 08/20/19 14:14 Laboratory results interpreted by me: 08/20/19 08/20/19 08/20/19 10:31 10:31 10:31 RBC 3.02 L Hgb 9.8 L Hct 28.9 L Lymph % (Auto) 10.2 L Seg Neutrophils % 78.2 H Sodium 124.2 L Chloride 85 L Carbon Dioxide Creatinine 1.48 H Est GFR ( Amer) 45 L Est GFR (MDRD) Non-Af 37 L Calcium Magnesium 1.3 L AST 53 H Total Protein 5.5 L Albumin 3.2 L 08/20/19 14:14 RBC Hgb Hct Lymph % (Auto) Seg Neutrophils % Sodium 123.1 L Chloride 93 L Carbon Dioxide 21 L Creatinine 1.26 H Est GFR ( Amer) 54 L Est GFR (MDRD) Non-Af 44 L Calcium 7.2 L Magnesium AST Total Protein Albumin - Diagnostic Test Radiology reviewed: Image reviewed, Reports reviewed - EKG Interpretation by Me EKG shows normal: Sinus rhythm Rate: Normal Rhythm: NSR Vincent/QRS: Left axis deviation - prolonged qtc Discharge - Discharge Clinical Impression: Dizziness, Hyponatremia, Hypomagnesemia, ALEJO (acute kidney injury) Hypotension Qualifiers: Hypotension type: unspecified hypotension type Qualified Code(s): I95.9 - Hypotension, unspecified Scalp laceration Qualifiers: Encounter type: initial encounter Qualified Code(s): S01.01XA - Laceration without foreign body of scalp, initial encounter Shoulder fracture, right Qualifiers: Encounter type: initial encounter Fracture type: closed Qualified Code(s): S42.91XA - Fracture of right shoulder girdle, part unspecified, initial encounter for closed fracture Condition: Stable Disposition: HOME, SELF-CARE Instructions: Dizziness ([facility]), Hyponatremia ([facility]), Kidney Injury ([facility]), Fracture Proximal Humerus, Scalp Laceration ([facility]) Additional Instructions: Follow up with your [id number] hours for further care or return to the ED IMMEDIATELY if symptoms worsen or you have any concerns. If you cannot afford to follow up with your primary care physician a list of low cost clinics have been provided at the end of your discharge papers as well. Most prescribed medications have multiple side effects. The safest thing to do is when filling your prescription speak to your pharmacist regarding possible interactions with your normal home medications and over the counter medications such as Ibuprofen, Tylenol, Benadryl. If you experience any symptoms that cause you discomfort or concern you should discontinue the medication immediately and return to the emergency room or call your primary care physician. Please return to your primary doctor, the ED, or an urgent care in 3 days for staple removal. Return immediately if you develop spreading redness around the wound, pus from the wound, worsening pain, or a fever of >100.4. Keep the area clean and dry. Wash gently with soap and water twice daily and cover with antibiotic ointment. Referrals: LILLIANA MEJIA MD [Primary Care Provider] - Follow up tomorrow DOMINICK GRANT JR, DO [ACTIVE PROVISIONAL STAFF] - Follow up in 3-5 days
[2019-08-20] MEDS ORDERED: MORPHINE SULFATE 10 MG/ML INJ IV ONE (11:32)
[2019-08-20] MEDS ORDERED: ONDANSETRON HCL INJ/PF 4 MG/2 ML SDV IV ONE (11:32)
[2019-08-20 11:39] LABS: ALBUMIN 3.2 g/dL (3.5-5.0); ALCOHOL 57 mg/dL (NONE DETECTED); ALKALINE PHOSPHATASE 122 U/L (38-126); ANION GAP 17 (5-19); ASPARTATE AMINO TRANSFERASE 53 U/L (14-36); BILIRUBIN,DIRECT 0.3 mg/dL (0.0-0.4); BILIRUBIN,TOTAL 0.3 mg/dL (0.2-1.3); BLOOD UREA NITROGEN 16 mg/dL (7-20); CALCIUM 8.7 mg/dL (8.4-10.2); CARBON DIOXIDE 22 mmol/L (22-30); CHLORIDE 85 mmol/L (98-107); GLUCOSE 89 mg/dL (75-110); POTASSIUM 4.3 mmol/L (3.6-5.0); TOTAL PROTEIN 5.5 g/dL (6.3-8.2)
[2019-08-20 12:56] LABS: APPEARANCE,URINE SLIGHTLY-CLOUDY; BILIRUBIN,URINE NEGATIVE (NEGATIVE); COLOR,URINE YELLOW; GLUCOSE, URINE NEGATIVE (NEGATIVE); KETONES,URINE NEGATIVE (NEGATIVE); LEUKOCYTE ESTERASE,URINE NEGATIVE (NEGATIVE); NITRITE,URINE NEGATIVE (NEGATIVE); PROTEIN,URINE NEGATIVE (NEGATIVE); URINE SPECIFIC GRAVITY 1.011; UROBILINOGEN,URINE NEGATIVE mg/dL (<2.0)
--- NOTE | 2019-08-20 13:00 | RADIOLOGY REPORT (SQ) ---
EXAM DESCRIPTION: CT HEAD WITHOUT COMPLETED DATE/TIME: 08/20/2019 12:35 pm REASON FOR STUDY: fall COMPARISON: None. TECHNIQUE: Axial images acquired through the brain without intravenous contrast. Images reviewed wi th bone, brain and subdural windows. Additional sagittal and coronal reconstructions were generated. Images stored on PACS. All CT scanners at this facility use dose modulation, iterative reconstruction, and/or weight based d osing when appropriate to reduce radiation dose to as low as reasonably achievable (ALARA). [facility]: Dose Right [facility]: CareDose [facility]: Dose Right [facility]: Teradose 4D [facility]: Qinec RADIATION DOSE: CT Rad equipment meets quality standard of care and radiation dose reduction techniq ues were employed. CTDIvol: 53.2 mGy. DLP: 964 mGy-cm. mGy. LIMITATIONS: None. FINDINGS: VENTRICLES: Normal size and contour. CEREBRUM: No masses. No hemorrhage. No midline shift. No evidence for acute infarction. Normal gra y/white matter differentiation. No areas of low density in the white matter. CEREBELLUM: No masses. No hemorrhage. No alteration of density. No evidence for acute infarction. EXTRAAXIAL SPACES: No fluid collections. No masses. ORBITS AND GLOBE: No intra- or extraconal masses. Normal contour of globe without masses. CALVARIUM: No fracture. PARANASAL SINUSES: No fluid or mucosal thickening. SOFT TISSUES: No mass or hematoma. OTHER: No other significant finding. IMPRESSION: NORMAL BRAIN CT WITHOUT CONTRAST. EVIDENCE OF ACUTE STROKE: NO. COMMENT: Quality ID # [id number]: Final reports with documentation of one or more dose reduction techniques (e.g., Automated exposure control, adjustment of the mA and/or kV according to patient size, use of iterative reconstruction technique) TECHNICAL DOCUMENTATION: JOB ID: [id number] [employer]- All Rights Reserved Reading location - IP/workstation name: [email or web address]
--- NOTE | 2019-08-20 13:01 | RADIOLOGY REPORT (SQ) ---
EXAM DESCRIPTION: SHOULDER RIGHT 2 OR MORE VIEWS COMPLETED DATE/TIME: 08/20/2019 12:37 pm REASON FOR STUDY: fall COMPARISON: None. NUMBER OF VIEWS: Two views. TECHNIQUE: Frontal and lateral images acquired of the right shoulder. LIMITATIONS: None. FINDINGS: MINERALIZATION: Osteopenia. BONES: Comminuted nondisplaced fracture of surgical neck. JOINTS: No dislocation. VISUALIZED LUNGS AND RIBS: No pneumothorax. No rib fracture. SOFT TISSUES: No radiopaque foreign body. OTHER: No other significant finding. IMPRESSION: 1 part fracture surgical neck. TECHNICAL DOCUMENTATION: JOB ID: [id number] [employer]- All Rights Reserved Reading location - IP/workstation name: [email or web address]
[2019-08-20 13:12] LABS: URINE AMPHETAMINES SCREEN NEGATIVE; URINE BARBITURATES SCREEN NEGATIVE; URINE BENZODIAZEPINES SCREEN NEGATIVE; URINE COCAINE SCREEN NEGATIVE; URINE MARIJUANA (THC) SCREEN NEGATIVE; URINE METHADONE SCREEN NEGATIVE; URINE PHENCYCLIDINE SCREEN NEGATIVE
[2019-08-20] MEDS ORDERED: MAGNESIUM SULFATE/D5W 1 GM/100 ML RTUPB IV ONE (13:34)
[2019-08-20] MEDS ORDERED: NORMAL SALINE 1000 ML 1,000 ML IV PRN ×2 (13:40→14:21)
[2019-08-20 14:44] LABS: ANION GAP 9 (5-19); BLOOD UREA NITROGEN 15 mg/dL (7-20); CALCIUM 7.2 mg/dL (8.4-10.2); CARBON DIOXIDE 21 mmol/L (22-30); CHLORIDE 93 mmol/L (98-107); GLUCOSE 91 mg/dL (75-110); POTASSIUM 3.8 mmol/L (3.6-5.0)
[2019-08-20] MEDS ORDERED: FENTANYL CITRATE INJ/PF 100 MCG/2 ML AMPUL IV ONE (15:31)
[2019-08-20 15:51] VITALS: BP 99/72
--- NOTE | 2019-08-21 06:29 | EKG REPORT ---
SEVERITY:- BORDERLINE ECG - SINUS RHYTHM LEFT AXIS DEVIATION BORDERLINE PROLONGED QT INTERVAL : Confirmed by: Javier Hoffman MD 21-Aug-2019 06:28:59
== END 2019-08-20 16:02 | disposition home or self-care (01) ==
LOC: ER 10:59
DX: S42.91XA Fracture of right shoulder girdle, part unspecified, initial encounter for closed fracture (principal); S01.01XA Laceration without foreign body of scalp, initial encounter; S51.811A Laceration without foreign body of right forearm, initial encounter; W19.XXXA Unspecified fall, initial encounter; W22.8XXA Striking against or struck by other objects, initial encounter; Y93.89 Activity, other specified; I95.9 Hypotension, unspecified; N17.9 Acute kidney failure, unspecified; E87.1 Hypo-osmolality and hyponatremia; E83.42 Hypomagnesemia; R42 Dizziness and giddiness; R51 Headache; M79.10 Myalgia, unspecified site; L98.9 Disorder of the skin and subcutaneous tissue, unspecified; I10 Essential (primary) hypertension; Z79.899 Other long term (current) drug therapy
CPT/HCPCS: 93005; 99284; 96375; 96365; 36415; 80307 ×2; 85025; 83735; 80053; 81001; 84484; 73030; 70450; 93010; 12001; J3010; J2270; J3475; J2405; J7030

== ENCOUNTER → 2019-09-20 | Outpatient (CLI) | payer BC ==
--- NOTE | 2019-09-20 11:37 | RADIOLOGY REPORT (SQ) ---
EXAM DESCRIPTION: CT RT UPPER EXTREMITY WITHOUT COMPLETED DATE/TIME: 09/20/2019 11:13 am REASON FOR STUDY: (S42.201D)UNSP FX UPPER END OF R HUMERUS, SUBS FOR FX W ROUTN HEAL S42.201D UNSP FX UPPER END OF R HUMERUS, SUBS FOR FX W ROUTN COMPARISON: Radiographs 08/20/2019 EXAM PARAMETERS: TECHNIQUE:Axial imaging performed through the right shoulder with reformatted coron al and sagittal imaging windowed for bone and soft tissues. Images saved to PACS. 3D IMAGING: Were 3D images as MIP, SSD, or volume rendering performed at the work station? No All CT scanners at this facility use dose modulation, iterative reconstruction, and/or weight based d osing when appropriate to reduce radiation dose to as low as reasonably achievable (ALARA). [facility]: Dose Right [facility]: SureCare [facility]: Dose Right [facility]: Teradose 4D [facility]: Smart [employer] RADIATION DOSE: CT Rad equipment meets quality standard of care and radiation dose reduction techniqu es were employed. CTDIvol: 12.4 mGy. DLP: 276 mGy-cm. mGy. LIMITATIONS: None. FINDINGS: SOFT TISSUES: No obvious swelling or foreign body. BONES: Comminuted displaced fracture of the humeral head/neck. The humeral articular surface is inta ct. MINERALIZATION: Normal. OTHER: No other significant finding. IMPRESSION: Comminuted displaced fracture of the humeral head/neck. Images are available for review . TECHNICAL DOCUMENTATION: JOB ID: [id number] [facility] [id number]: Final reports with documentation of one or more dose reduction techniques (e.g., Automate d exposure control, adjustment of the mA and/or kV according to patient size, use of iterative recons truction technique) 2010 [employer]- All Rights Reserved Reading location - IP/workstation name: [email or web address]
== END ==
LOC: RAD 10:29
PROVIDERS: ATTEND Orthopaedic Surgery
DX: S42.291D Other displaced fracture of upper end of right humerus, subsequent encounter for fracture with routine healing (principal); X58.XXXD Exposure to other specified factors, subsequent encounter

== ENCOUNTER 2019-10-18 22:37 | Inpatient (IN) | payer BC ==
[2019-10-19] MEDS ORDERED: ONDANSETRON HCL INJ/PF 4 MG/2 ML SDV IV ONE (00:28)
[2019-10-19 02:19] LABS: HEMATOCRIT 24.4 % (36.0-47.0); HEMOGLOBIN 8.2 g/dL (12.0-15.5); MEAN CORPUSCULAR HGB CONC 33.6 g/dL (32.0-36.0); MEAN CORPUSCULAR VOLUME 98 fl (80-97); PLATELET COUNT 313 10^3/uL (150-450); RED BLOOD COUNT 2.48 10^6/uL (3.72-5.28); WHITE BLOOD COUNT 6.3 10^3/uL (4.0-10.5)
[2019-10-19] MEDS ORDERED: ONDANSETRON HCL INJ/PF 4 MG/2 ML SDV ONE (02:36)
[2019-10-19 02:40] LABS: ABSOLUTE LYMPHOCYTES# (MANUAL) 0.1 10^3/uL (0.5-4.7); ABSOLUTE MONOCYTES # (MANUAL) 0.6 10^3/uL (0.1-1.4); ANISOCYTOSIS SLIGHT; BASOPHILS % (MANUAL) 1 % (0-2); EOSINOPHILS % (MANUAL) 0 % (0-6); LYMPHOCYTES % (MANUAL) 2 % (13-45); MONOCYTES % (MANUAL) 10 % (3-13); PLATELET COMMENT ADEQUATE; SEGMENTED NEUTROPHILS % (MAN) 87 % (42-78); TOTAL CELLS COUNTED 100
[2019-10-19 02:42] LABS: ALBUMIN 2.7 g/dL (3.5-5.0); ALKALINE PHOSPHATASE 174 U/L (38-126); ANION GAP 14 (5-19); ASPARTATE AMINO TRANSFERASE 47 U/L (14-36); BILIRUBIN,DIRECT 0.6 mg/dL (0.0-0.4); BILIRUBIN,TOTAL 0.8 mg/dL (0.2-1.3); BLOOD UREA NITROGEN 34 mg/dL (7-20); CALCIUM 8.7 mg/dL (8.4-10.2); CARBON DIOXIDE 23 mmol/L (22-30); CHLORIDE 94 mmol/L (98-107); GLUCOSE 81 mg/dL (75-110); TOTAL PROTEIN 5.2 g/dL (6.3-8.2)
[2019-10-19] MEDS ORDERED: POTASSIUM CHLORIDE 10 MEQ TABLET.ER PO ONE (03:05)
[2019-10-19] MEDS ORDERED: NORMAL SALINE 1000 ML 1,000 ML IV ONE (03:12)
[2019-10-19] MEDS: POTASSI CL 20 MEQ/50 ML RIDER 20 MEQ/50 ML RTUPB IV SCH ×2 (03:15→05:05)
[2019-10-19] MEDS ORDERED: FENTANYL CITRATE INJ/PF 100 MCG/2 ML AMPUL IV ONE (04:53)
--- NOTE | 2019-10-19 04:53 | ER Document Report ---
ED General - General Chief Complaint: Lower Abdominal Pain Stated Complaint: VOMITING Time Seen by Provider: 10/19/19 03:17 Notes: Patient is a 54-year-old female with a history of lupus who comes to the emergency department with multiple complaints. Patient states that she has pain in her legs. She states that she has wounds on her anterior legs, which are covered in Unna boots to help with swelling. She also states that she has abdominal pain and has been vomiting. Patient has been on Percocet for a long time, but states that recently she has been constipated. She had a bowel movement yesterday, but states that before then she did not have a bowel movement for several days. Patient denies any fevers. TRAVEL OUTSIDE OF THE [place] IN LAST 30 DAYS: No - Related Data Allergies/Adverse Reactions: codeine Adverse Reaction (Verified 10/10/19 13:29) Nausea Sulfa (Sulfonamide Antibiotics) Adverse Reaction (Verified 10/10/19 13:29) Nausea Past Medical History - General Information source: Patient - Social History Smoking Status: Never Smoker Chew tobacco use (# tins/day): No Frequency of alcohol use: Rare Drug Abuse: None Family History: Reviewed & Not Pertinent Patient has suicidal ideation: No Patient has homicidal ideation: No - Past Medical History Cardiac Medical History: Reports: Hx Hypertension Denies: Hx Coronary Artery Disease, Hx Heart Attack Pulmonary Medical History: Denies: Hx Asthma, Hx Bronchitis, Hx COPD, Hx Pneumonia Neurological Medical History: Denies: Hx Cerebrovascular Accident, Hx Seizures Renal/ Medical History: Denies: Hx Peritoneal Dialysis Musculoskeletal Medical History: Reports Hx Arthritis - LUPUS Past Surgical History: Reports: Hx Breast Surgery - BREAST REDUCTION, Hx Section, Hx Hysterectomy, Hx Orthopedic Surgery - TENDON REPAIR RIGHT WRIST - Immunizations Hx Diphtheria, Pertussis, Tetanus Vaccination: Yes Review of Systems - Review of Systems Notes: REVIEW OF SYSTEMS: CONSTITUTIONAL : Denies recent illness. Denies recent unintentional weight loss. Denies fever, chills, or sweats. EENT: Denies eye, ear, throat, or mouth pain, discharge, or symptoms. Denies na mickie or sinus congestion. CARDIOVASCULAR: Denies chest pain. RESPIRATORY: Denies shortness of breath, cough, congestion, difficulty breathing, or wheezing. GASTROINTESTINAL: See HPI. GENITOURINARY: Denies difficulty urinating, burning, blood in urine, urgency or frequency. MUSCULOSKELETAL: See HPI. SKIN: See HPI. HEMATOLOGIC : Denies easy bruising or bleeding. LYMPHATIC: Denies swollen, painful, enlarged glands. NEUROLOGICAL: Denies no numbness or tingling denies weakness. Denies headache. Denies altered mental status. Denies alteration in speech. PSYCHIATRIC: Denies stress, anxiety, alteration in sleep patterns, or depression. All other systems reviewed and negative. Physical Exam - Vital signs Vitals: Temp Pulse Resp BP Pulse Ox 98.8 F 116 H 20 116/77 100 10/18/19 23:12 10/18/19 23:12 10/18/19 23:12 10/18/19 23:12 10/18/19 23:12 - Notes Notes: PHYSICAL EXAMINATION: GENERAL: Appears older than stated age, no acute distress. HEAD: Normocephalic, small amount of ecchymosis to forehead. EYES: PERRL, conjunctiva normal, all extraocular movements intact, sclera nonicteric ENT: Moist mucous membranes. NECK: Supple, no noticeable swelling, redness, rash. Normal range of motion. LUNGS: Equal breath sounds bilaterally and clear to auscultation. No wheezes rales or rhonchi. CARDIOVASCULAR: S1-S2, regular rate, regular rhythm. Radial pulses 2+, normal. ABDOMEN: Normoactive bowel sounds. Soft, mildly tender mid lower abdomen, no guarding, no rebound tenderness, and no masses palpated. EXTREMITIES: Normal strength and range of motion, no pitting or edema. No cyanosis. NEUROLOGICAL: Moves all extremities upon command. Strength 5/5 in all extremities. PSYCH: Normal mood, normal affect. SKIN: Warm, dry. Stasis ulcers noted to bilateral anterior shins; were in [place] boots, removed her in ED. Course - Re-evaluation Re-evalutation: 10/19/19 05:41 Patient had a bowel movement and it was melena stool. 10/19/19 06:39 Patient's hemoglobin is 8.2 with a hematocrit of 24.4. Patient does have a GI bleed, as she had melana stool. Her potassium was 3.0. This was replaced. Lipase was normal. Patient has elevated liver enzymes, but she also has fatty liver disease noted on CT of the abdomen pelvis. She does have diverticulosis, but not diverticulitis. Awaiting urinalysis. 10/19/19 07:[address] Castillo, the surgeon diamond driller helper. He will follow the patient back to the GI bleed. Still waiting urinalysis. When this results, I will call the hospitalist service. 10/19/19 07:40 Spoke with PRAVEENA Ramires. Patient will be admitted to [facility] under the hospitalist service. Urinalysis shows a urinary tract infection. I have ordered Rocephin. - Vital Signs Vital signs: Temp Pulse Resp BP Pulse Ox 98.9 F 106 H 20 123/63 100 10/19/19 20:00 10/19/19 20:00 10/19/19 20:00 10/19/19 20:00 10/19/19 20:00 - Laboratory Result Diagrams: 10/19/19 18:19 10/19/19 10:35 Laboratory results interpreted by me: 10/19/19 10/19/19 10/19/19 01:32 01:32 06:40 RBC 2.48 L Hgb 8.2 L Hct 24.4 L MCV 98 H RDW 15.0 H Seg Neuts % (Manual) 87 H Lymphocytes % (Manual) 2 L Abs Lymphs (Manual) 0.1 L Sodium 130.8 L Potassium 3.0 L* Chloride 94 L BUN 34 H Creatinine 1.63 H Est GFR ( Amer) 40 L Est GFR (MDRD) Non-Af 33 L Direct Bilirubin 0.6 H AST 47 H Alkaline Phosphatase 174 H Total Protein 5.2 L Albumin 2.7 L Urine Nitrite POSITIVE H Ur Leukocyte Esterase LARGE H Discharge - Discharge Clinical Impression: GI bleed Qualifiers: GI bleed type/associated pathology: melena Qualified Code(s): K92.1 - Melena Abdominal pain Qualifiers: Abdominal location: lower abdomen, unspecified Qualified Code(s): R10.30 - Lower abdominal pain, unspecified Urinary tract infection Qualifiers: Urinary tract infection type: acute cystitis Hematuria presence: without hematuria Qualified Code(s): N30.00 - Acute cystitis without hematuria Condition: Stable Disposition: ADMITTED INPATIENT Admitting Provider: Baldemar (Hospitalist) Unit Admitted: [facility]
[2019-10-19] MEDS ORDERED: METOCLOPRAMIDE HCL INJ/PF 10 MG/2 ML SDV IV ONE (05:38)
[2019-10-19] MEDS ORDERED: PANTOPRAZOLE SODIUM 40 MG VIAL IV ONE (05:41)
--- NOTE | 2019-10-19 06:24 | RADIOLOGY REPORT (SQ) ---
EXAM DESCRIPTION: CT ABDOMEN PELVIS WITH IV CONTRAST COMPLETED DATE/TME: 10/19/2019 04:51 CLINICAL HISTORY: Diffuse abdominal pain. COMPARISON: None Available. TECHNIQUE: CT of the abdomen and pelvis performed following IV administration of 83 mL of Omnipaque 350. FINDINGS: Lung Bases: The visualized lung bases are clear. Bones: No destructive bone lesions identified. Abdomen: Liver: The liver has normal size and decreased density. No intrahepatic mass or biliary dilatation. Gallbladder: No calcified gallstones. Spleen, Pancreas, and Adrenal Glands: The spleen, pancreas, and adrenal glands are unremarkable. Kidneys: The kidneys have normal size without evidence of solid mass or hydronephrosis. Subcentimeter right renal cyst. Vasculature: Aortoiliac atherosclerosis. IVC is unremarkable. The portal vein is patent. The proximal visceral and renal arteries are patent. Stomach: The stomach and duodenum have normal course. Other: No free intraperitoneal air. No free fluid or lymphadenopathy. Minimal facet subcutaneous soft tissues. Pelvis: Bladder: Urinary bladder is unremarkable. Bowel: No dilated loops of large or small bowel. Scattered diverticula colon. Appendix: Normal appendix. Pelvis: Prior hysterectomy. IMPRESSION: 1. No acute inflammatory or obstructive process identified. 2. Hepatic steatosis. 3. Diverticulosis without evidence of acute diverticulitis. This exam was performed according to our departmental dose-optimization program, which includes automated exposure control, adjustment of the mA and/or kV according to patient size and/or use of iterative reconstruction technique.
[2019-10-19] MEDS ORDERED: PANTOPRAZOLE SODIUM 40 MG VIAL IV PRN (06:34)
[2019-10-19 07:36] LABS: APPEARANCE,URINE SLIGHTLY-CLOUDY; BILIRUBIN,URINE NEGATIVE (NEGATIVE); COLOR,URINE YELLOW; GLUCOSE, URINE NEGATIVE (NEGATIVE); KETONES,URINE NEGATIVE (NEGATIVE); LEUKOCYTE ESTERASE,URINE LARGE (NEGATIVE); NITRITE,URINE POSITIVE (NEGATIVE); PROTEIN,URINE NEGATIVE (NEGATIVE); UROBILINOGEN,URINE NEGATIVE mg/dL (<2.0)
[2019-10-19] MEDS ORDERED: CEFTRIAXONE INJ 1000 MG VIAL IV ONE (07:39)
[2019-10-19] MEDS ORDERED: DEXTROSE 50%-WATER 25 GM/50 ML DISP.SYRIN IV PRN ×3 (08:23→13:04)
[2019-10-19] MEDS ORDERED: GLUCAGON,HUMAN RECOMB 1 MG INJ SUBCUT PRN ×2 (08:23→13:04)
[2019-10-19] MEDS ORDERED: NORMAL SALINE 1000 ML 1,000 ML IV PRN (08:23)
[2019-10-19] MEDS ORDERED: DEXTROSE 40% GEL 15 GM TUBE PO PRN ×4 (08:23→13:04)
[2019-10-19] MEDS ORDERED: NORMAL SALINE 250 ML IV PRN ×2 (08:28)
--- NOTE | 2019-10-19 08:38 | PDOC H&P ---
History of Present Illness Admission Date/PCP: 10/19/19 08:19 LILLIANA MEJIA MD Patient complains of: Lower abdominal pain History of Present Illness: AGUSTIN ORTEGA is a 54 year old female who presents to the ER with a past medical history of lupus with multiple complaints. Patient states she has pain in her legs she states is wound on anterior leg most importantly she was having low abdominal pain. Patient did pass melena stools in the ER and has a hemoglobin of 8.2 at this time. She does have chronic anemia however. She had no fever prior to arrival she is got no true aggravating factors. Past Medical History Cardiac Medical History: Reports: Hypertension Denies: Coronary Artery Disease, Myocardial Infarction Pulmonary Medical History: Denies: Asthma, Bronchitis, Chronic Obstructive Pulmonary Disease (COPD), Pneumonia Neurological Medical History: Denies: Seizures Musculoskeltal Medical History: Reports: Arthritis - LUPUS Hematology: Reports: Anemia Past Surgical History Past Surgical History: Reports: Section, Hysterectomy, Orthopedic Surgery - TENDON REPAIR RIGHT WRIST Social History Information Source: Patient Lives with: Family Smoking Status: Never Smoker Electronic Cigarette use?: No Frequency of Alcohol Use: Social Hx Recreational Drug Use: No Drugs: None Hx Prescription Drug Abuse: No - Advance Directive Resuscitation Status: Full Code Family History Family History: Hypertension Parental Family History Reviewed: Yes Children Family History Reviewed: Yes Sibling(s) Family History Reviewed.: Yes Medication/Allergy Home Medications: Alendronate Sodium [Fosamax "Weekly" 35 mg Tablet] 35 mg PO WE@1000 01/11/19 Amlodipine Besylate [Norvasc 10 mg Tablet] 10 mg PO DAILY 01/11/19 Aspirin [Ecotrin 81 mg EC Tablet] 81 mg PO DAILY 01/11/19 Atorvastatin Calcium [Lipitor 10 mg Tablet] 10 mg PO DAILY 01/11/19 Belimumab [Benlysta] 200 mg SQ WE@1000 01/11/19 Budesonide [Uceris] 9 mg PO DAILY 01/11/19 Cyclosporine [Sandimmune] 50 mg PO BID 01/11/19 Duloxetine HCl [Cymbalta] 60 mg PO QHS 01/11/19 Ergocalciferol (Vitamin D2) [Drisdol 50,000 unit (1.25MG) Capsule] 50,000 unit PO WE@1000 01/11/19 Furosemide [Lasix 20 mg Tablet] 40 mg PO QPM 01/11/19 Furosemide [Lasix 20 mg Tablet] 60 mg PO QAM 01/11/19 Hydroxychloroquine Sulfate [Plaquenil 200 mg Tablet] 200 mg PO BID 01/11/19 Levothyroxine Sodium [Synthroid 0.05 mg Tablet] 0.05 mg PO Q6AM 01/11/19 Liothyronine Sodium [Cytomel] 15 mcg PO DAILY 01/11/19 Lisinopril/Hydrochlorothiazide [Lisinopril-Hctz 20-25 mg Tab] 1 tab PO DAILY 01/11/19 Metoprolol Tartrate [Lopressor 50 mg Tablet] 50 mg PO Q12 01/11/19 Potassium Chloride [Klor-Con M10] 10 meq PO BID 01/11/19 Prednisone [Deltasone 5 mg Tablet] 5 mg PO DAILY 01/11/19 Amlodipine Besylate [Norvasc 10 mg Tablet] 10 mg PO DAILY tablet 01/14/19 Amoxicillin Trihydrate [Amoxil 500 mg Capsule] 500 mg PO Q8 5 Days #15 capsule 01/14/19 Budesonide [Uceris] 9 mg PO DAILY 01/14/19 Duloxetine HCl [Cymbalta 30 mg Capsule.] 60 mg PO QHS capsule. 01/14/19 Levothyroxine Sodium [Synthroid 0.05 mg Tablet] 0.05 mg PO DAILY tablet 01/14/19 Metoprolol Tartrate [Lopressor 50 mg Tablet] 50 mg PO Q12 tablet 01/14/19 Prednisone [Deltasone 5 mg Tablet] 5 mg PO DAILY tablet 01/14/19 Sulfamethoxazole/Trimethoprim [Septra-Ds 800-160 mg Tablet] 2 tab PO BID #10 tablet 01/14/19 Tramadol HCl [Ultram 50 mg Tablet] 50 mg PO Q6HP PRN #8 tablet 01/14/19 Allergies/Adverse Reactions: codeine Adverse Reaction (Verified 10/10/19 13:29) Nausea Sulfa (Sulfonamide Antibiotics) Adverse Reaction (Verified 10/10/19 13:29) Nausea Review of Systems Constitutional: ABSENT: chills, fever(s), headache(s), weight gain, weight loss Eyes: ABSENT: visual disturbances Ears: ABSENT: hearing changes Cardiovascular: ABSENT: chest pain, dyspnea on exertion, edema, orthropnea, palpitations Respiratory: ABSENT: cough, hemoptysis Gastrointestinal: PRESENT: abdominal pain. ABSENT: constipation, diarrhea, hematemesis, hematochezia, nausea, vomiting Genitourinary: ABSENT: dysuria, hematuria Musculoskeletal: PRESENT: other - Leg pain. ABSENT: joint swelling Integumentary: ABSENT: rash, wounds Neurological: ABSENT: abnormal gait, abnormal speech, confusion, dizziness, focal weakness, syncope Psychiatric: ABSENT: anxiety, depression, homidical ideation, suicidal ideation Endocrine: ABSENT: cold intolerance, heat intolerance, polydipsia, polyuria Hematologic/Lymphatic: ABSENT: easy bleeding, easy bruising Physical Exam Vital Signs: Temp Pulse Resp BP Pulse Ox 98.1 F 116 H 15 126/82 H 99 10/19/19 06:14 10/19/19 00:22 10/19/19 06:01 10/19/19 06:01 10/19/19 06:01 Intake & Output 10/18/19 10/19/19 10/20/19 06:59 06:59 06:59 Intake Total 50 Balance 50 Weight 72.575 kg General appearance: PRESENT: no acute distress, well-developed, well-nourished Head exam: PRESENT: atraumatic, normocephalic Eye exam: PRESENT: conjunctiva pink, EOMI, PERRLA. ABSENT: scleral icterus Ear exam: PRESENT: normal external ear exam Mouth exam: PRESENT: moist, tongue midline Neck exam: ABSENT: carotid bruit, JVD, lymphadenopathy, thyromegaly Respiratory exam: PRESENT: clear to auscultation janis. ABSENT: rales, rhonchi, wheezes Cardiovascular exam: PRESENT: RRR. ABSENT: diastolic murmur, rubs, systolic murmur Pulses: PRESENT: normal dorsalis pedis pul Vascular exam: PRESENT: normal capillary refill GI/Abdominal exam: PRESENT: normal bowel sounds, soft. ABSENT: distended, guarding, mass, organolmegaly, rebound, tenderness Rectal exam: PRESENT: deferred Extremities exam: PRESENT: full ROM, other - Anterior leg wounds. ABSENT: calf tenderness, clubbing, pedal edema Neurological exam: PRESENT: alert, awake, oriented to person, oriented to place, oriented to time, oriented to situation, CN II-XII grossly intact. ABSENT: motor sensory deficit Psychiatric exam: PRESENT: appropriate affect, normal mood. ABSENT: homicidal ideation, suicidal ideation Skin exam: PRESENT: dry, intact, warm. ABSENT: cyanosis, rash Results Laboratory Results: 10/19/19 01:32 10/19/19 01:32 10/19/19 10/19/19 10/19/19 01:32 01:32 06:40 WBC 6.3 RBC 2.48 L Hgb 8.2 L Hct 24.4 L MCV 98 H MCH 33.0 MCHC 33.6 RDW 15.0 H Plt Count 313 Seg Neutrophils % Not Reportable Sodium 130.8 L Potassium 3.0 L* Chloride 94 L Carbon Dioxide 23 Anion Gap 14 BUN 34 H Creatinine 1.63 H Est GFR ( Amer) 40 L Glucose 81 Calcium 8.7 Total Bilirubin 0.8 AST 47 H Alkaline Phosphatase 174 H Total Protein 5.2 L Albumin 2.7 L Lipase 112.3 Urine Color YELLOW Urine Appearance SLIGHTLY-CLOUDY Urine pH 6.0 Ur Specific [place] 1.030 Urine Protein NEGATIVE Urine Glucose (UA) NEGATIVE Urine Ketones NEGATIVE Urine Blood NEGATIVE Urine Nitrite POSITIVE H Ur Leukocyte Esterase LARGE H Urine WBC (Auto) 123 Urine RBC (Auto) 2 Impressions: Abdomen/Pelvis CT 10/19/19 04:51 IMPRESSION: 1. No acute inflammatory or obstructive process identified. 2. Hepatic steatosis. 3. Diverticulosis without evidence of acute diverticulitis. This exam was performed according to our departmental dose-optimization program, which includes automated exposure control, adjustment of the mA and/or kV according to patient size and/or use of iterative reconstruction technique. Assessment and Plan - Diagnosis (1) GI bleed Qualifiers: GI bleed type/associated pathology: melena Qualified Code(s): K92.1 - Melena Is this a current diagnosis for this admission?: Yes Plan: 10/19/2019 mid to IMCU. N.p.o. Protonix drip. Octreotide drip. Consult Dr. Castillo for endoscopy. 4 units packed cells on hold. Serial hemoglobin hematoc rit every 4 hours until patient has underwent endoscopy. Transfuse as necessary (2) Abdominal pain Qualifiers: Abdominal location: lower abdomen, unspecified Qualified Code(s): R10.30 - Lower abdominal pain, unspecified Is this a current diagnosis for this admission?: Yes Plan: 10/19/2019-fentanyl 50 mcg IV every 4 hours as needed (3) Urinary tract infection Qualifiers: Urinary tract infection type: acute cystitis Hematuria presence: without hematuria Qualified Code(s): N30.00 - Acute cystitis without hematuria Is this a current diagnosis for this admission?: Yes Plan: 10/19/2019-Rocephin 1 g IV daily until cultures return (4) Cellulitis of right lower extremity Is this a current diagnosis for this admission?: Yes Plan: 10/19/2019-continue wound care per nursing (5) Hypertension Is this a current diagnosis for this admission?: Yes Plan: 10/19/2019-hydralazine 10 mg IV every 4 hours as needed systolic above 160 until patient is taking p.o. at which time we will convert her back to her home medications. - Time Time Spent with patient: 35 or more minutes - Inpatient Certification Based on my medical assessment, after consideration of the patient's comorbidities, presenting symptoms, or acuity I expect that the services needed warrant INPATIENT care.: Yes I certify that my determination is in accordance with my understanding of Medicare's requirements for reasonable and necessary INPATIENT services [42 CFR 412.3e].: Yes Medical Necessity: Significant Comorbidiites Make Outpatient Treatment Too Risky, Need Close Monitoring Due to Risk of Patient Decompensation, Need For IV Fluids, Need for Pain Control
[2019-10-19 09:52] LABS: HEMATOCRIT 20.7 % (36.0-47.0); MEAN CORPUSCULAR HEMOGLOBIN 33.3 pg (27.0-33.4); MEAN CORPUSCULAR HGB CONC 33.7 g/dL (32.0-36.0); MEAN CORPUSCULAR VOLUME 99 fl (80-97); PLATELET COUNT 204 10^3/uL (150-450); RED CELL DISTRIBUTION WIDTH 14.9 % (11.5-14.0); WHITE BLOOD COUNT 8.1 10^3/uL (4.0-10.5)
[2019-10-19] MEDS: NORMAL SALINE 500 ML with OCTREOTIDE ACETATE 500 MCG IV PRN ×4 (09:54→22:17)
[2019-10-19 10:59] LABS: ABSOLUTE LYMPHOCYTES# (MANUAL) 0.5 10^3/uL (0.5-4.7); ABSOLUTE MONOCYTES # (MANUAL) 0.3 10^3/uL (0.1-1.4); BAND NEUTROPHILS % (MANUAL) 2 % (3-5); BASOPHILS % (MANUAL) 0 % (0-2); EOSINOPHILS % (MANUAL) 0 % (0-6); LYMPHOCYTES % (MANUAL) 6 % (13-45); MONOCYTES % (MANUAL) 4 % (3-13); SEGMENTED NEUTROPHILS % (MAN) 88 % (42-78); TOTAL CELLS COUNTED 100
[2019-10-19 11:00] LABS: TOXIC GRANULATION 1+
[2019-10-19 11:01] LABS: ANISOCYTOSIS SLIGHT; OVALOCYTES SLIGHT; PLATELET COMMENT ADEQUATE; POIKILOCYTOSIS SLIGHT
[2019-10-19 11:14] LABS: ANION GAP 6 (5-19); BLOOD UREA NITROGEN 28 mg/dL (7-20); CARBON DIOXIDE 23 mmol/L (22-30); CHLORIDE 105 mmol/L (98-107); POTASSIUM 3.4 mmol/L (3.6-5.0)
[2019-10-19 11:22] LABS: CALCIUM 6.9 mg/dL (8.4-10.2)
[2019-10-19 11:23] LABS: GLUCOSE 38 mg/dL (75-110)
[2019-10-19] MEDS ORDERED: CALCIUM GLUCONATE 2,000 MG in DEXTROSE 5%-WATER 100 ML IV ONE (12:30)
--- NOTE | 2019-10-19 13:02 | PDOC CONSULTATION ---
Consultation Consult Date: 10/19/19 Provider Consulted: STEVE MAXWELL Consult reason:: Anemia with GI bleed History of Present Illness Admission Date/PCP: 10/19/19 08:19 LILLIANA MEJIA MD History of Present Illness: AGUSTIN ORTEGA is a 54 year old female with a history of lupus and has been on prednisone has not been feeling well for the past few days but last night daughter brought her to the ED because of severe weakness with inability to swallow any fluids. She had initial hemoglobin of 8 and this morning went down to 7 after hydration. She did complain of lower abdominal pains when brought to the ED but this morning the pains have subsided after she had a bowel movement. She had dark stool this morning and noted to be positive for Hemoccult. Denies any hematemesis nor upper abdominal pains. She had an EGD and colonoscopy by Dr. 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 Past Medical History Cardiac Medical History: Reports: Hypertension Denies: Coronary Artery Disease, Myocardial Infarction Pulmonary Medical History: Denies: Asthma, Bronchitis, Chronic Obstructive Pulmonary Disease (COPD), Pneumonia Neurological Medical History: Denies: Seizures Musculoskeltal Medical History: Reports: Arthritis - LUPUS Hematology: Reports: Anemia Past Surgical History Past Surgical History: Reports: Section, Hysterectomy, Orthopedic Surgery - TENDON REPAIR RIGHT WRIST Social History Lives with: Family Smoking Status: Never Smoker Electronic Cigarette use?: No Frequency of Alcohol Use: Social Hx Recreational Drug Use: No Drugs: None Hx Prescription Drug Abuse: No - Advance Directive Resuscitation Status: Full Code Family History Family History: Hypertension Parental Family History Reviewed: Yes - Father side with diabetes mellitus Children Family History Reviewed: No Sibling(s) Family History Reviewed.: No Medication/Allergy Home Medications: Alendronate Sodium [Fosamax "Weekly" 35 mg Tablet] 35 mg PO WE@1000 01/11/19 Amlodipine Besylate [Norvasc 10 mg Tablet] 10 mg PO DAILY 01/11/19 Aspirin [Ecotrin 81 mg EC Tablet] 81 mg PO DAILY 01/11/19 Atorvastatin Calcium [Lipitor 10 mg Tablet] 10 mg PO DAILY 01/11/19 Belimumab [Benlysta] 200 mg SQ WE@1000 01/11/19 Budesonide [Uceris] 9 mg PO DAILY 01/11/19 Cyclosporine [Sandimmune] 50 mg PO BID 01/11/19 Duloxetine HCl [Cymbalta] 60 mg PO QHS 01/11/19 Ergocalciferol (Vitamin D2) [Drisdol 50,000 unit (1.25MG) Capsule] 50,000 unit PO WE@1000 01/11/19 Furosemide [Lasix 20 mg Tablet] 40 mg PO QPM 01/11/19 Furosemide [Lasix 20 mg Tablet] 60 mg PO QAM 01/11/19 Hydroxychloroquine Sulfate [Plaquenil 200 mg Tablet] 200 mg PO BID 01/11/19 Levothyroxine Sodium [Synthroid 0.05 mg Tablet] 0.05 mg PO Q6AM 01/11/19 Liothyronine Sodium [Cytomel] 15 mcg PO DAILY 01/11/19 Lisinopril/Hydrochlorothiazide [Lisinopril-Hctz 20-25 mg Tab] 1 tab PO DAILY 01/11/19 Metoprolol Tartrate [Lopressor 50 mg Tablet] 50 mg PO Q12 01/11/19 Potassium Chloride [Klor-Con M10] 10 meq PO BID 01/11/19 Prednisone [Deltasone 5 mg Tablet] 5 mg PO DAILY 01/11/19 Amlodipine Besylate [Norvasc 10 mg Tablet] 10 mg PO DAILY tablet 01/14/19 Amoxicillin Trihydrate [Amoxil 500 mg Capsule] 500 mg PO Q8 5 Days #15 capsule 01/14/19 Budesonide [Uceris] 9 mg PO DAILY 01/14/19 Duloxetine HCl [Cymbalta 30 mg Capsule.] 60 mg PO QHS capsule. 01/14/19 Levothyroxine Sodium [Synthroid 0.05 mg Tablet] 0.05 mg PO DAILY tablet 01/14/19 Metoprolol Tartrate [Lopressor 50 mg Tablet] 50 mg PO Q12 tablet 01/14/19 Prednisone [Deltasone 5 mg Tablet] 5 mg PO DAILY tablet 01/14/19 Sulfamethoxazole/Trimethoprim [Septra-Ds 800-160 mg Tablet] 2 tab PO BID #10 tablet 01/14/19 Tramadol HCl [Ultram 50 mg Tablet] 50 mg PO Q6HP PRN #8 tablet 01/14/19 Allergies/Adverse Reactions: codeine Adverse Reaction (Verified 10/10/19 13:29) Nausea Sulfa (Sulfonamide Antibiotics) Adverse Reaction (Verified 10/10/19 13:29) Nausea Review of Systems Constitutional: PRESENT: as per HPI, other - No fever no chills Gastrointestinal: PRESENT: abdominal pain, melena Musculoskeletal: PRESENT: muscle weakness Integumentary: PRESENT: other - Abrasions of the skin both lower legs Neurological: PRESENT: weakness Hematologic/Lymphatic: PRESENT: easy bruising Physical Exam Vital Signs: Temp Pulse Resp BP Pulse Ox 98.9 F 105 H 19 130/99 H 99 10/19/19 12:36 10/19/19 12:36 10/19/19 12:36 10/19/19 12:36 10/19/19 12:36 Intake & Output 10/18/19 10/19/19 10/20/19 06:59 06:59 06:59 Intake Total 50 2049 Balance 50 2049 Weight 72.575 kg General appearance: PRESENT: mild distress Head exam: PRESENT: atraumatic Eye exam: PRESENT: conjunctiva pale Mouth exam: PRESENT: dry mucosa Neck exam: PRESENT: full ROM Respiratory exam: PRESENT: clear to auscultation janis Cardiovascular exam: PRESENT: tachycardia Pulses: PRESENT: normal radial pulses Vascular exam: PRESENT: normal capillary refill GI/Abdominal exam: PRESENT: soft - Nontender Rectal exam: PRESENT: deferred Extremities exam: PRESENT: other - Superficial abrasions of both lower legs Musculoskeletal exam: PRESENT: ambulatory Neurological exam: PRESENT: alert, oriented to person, oriented to place, oriented to time, oriented to situation Psychiatric exam: PRESENT: appropriate affect Skin exam: PRESENT: pallor, warm Results Laboratory Results: 10/19/19 09:30 10/19/19 10:35 10/19/19 10/19/19 10/19/19 01:32 01:32 06:40 WBC 6.3 RBC 2.48 L Hgb 8.2 L Hct 24.4 L MCV 98 H MCH 33.0 MCHC 33.6 RDW 15.0 H Plt Count 313 Seg Neutrophils % Not Reportable Sodium 130.8 L Potassium 3.0 L* Chloride 94 L Carbon Dioxide 23 Anion Gap 14 BUN 34 H Creatinine 1.63 H Est GFR ( Amer) 40 L Est GFR (Non-Af Amer) Glucose 81 Calcium 8.7 Total Bilirubin 0.8 AST 47 H Alkaline Phosphatase 174 H Total Protein 5.2 L Albumin 2.7 L Lipase 112.3 Urine Color YELLOW Urine Appearance SLIGHTLY-CLOUDY Urine pH 6.0 Ur Specific [place] 1.030 Urine Protein NEGATIVE Urine Glucose (UA) NEGATIVE Urine Ketones NEGATIVE Urine Blood NEGATIVE Urine Nitrite POSITIVE H Ur Leukocyte Esterase LARGE H Urine WBC (Auto) 123 Urine RBC (Auto) 2 Blood Type Antibody Screen 10/19/19 10/19/19 10/19/19 09:30 09:30 09:30 WBC 8.1 RBC 2.10 L Hgb 7.0 L Hct 20.7 L MCV 99 H MCH 33.3 MCHC 33.7 RDW 14.9 H Plt Count 204 Seg Neutrophils % Not Reportable Sodium Cancelled Potassium Cancelled Chloride Cancelled Carbon Dioxide Cancelled Anion Gap Cancelled BUN Cancelled Creatinine Cancelled Est GFR ( Amer) Cancelled Est GFR (Non-Af Amer) Cancelled Glucose Cancelled Calcium Cancelled Total Bilirubin AST Alkaline Phosphatase Total Protein Albumin Lipase Urine Color Urine Appearance Urine pH Ur Specific [place] Urine Protein Urine Glucose (UA) Urine Ketones Urine Blood Urine Nitrite Ur Leukocyte Esterase Urine WBC (Auto) Urine RBC (Auto) Blood Type A POSITIVE Antibody Screen NEGATIVE 10/19/19 10:35 WBC RBC Hgb Hct MCV MCH MCHC RDW Plt Count Seg Neutrophils % Sodium 134.4 L Potassium 3.4 L Chloride 105 Carbon Dioxide 23 Anion Gap 6 BUN 28 H Creatinine 1.20 Est GFR ( Amer) 57 L Est GFR (Non-Af Amer) Glucose 38 L* Calcium 6.9 L* Total Bilirubin AST Alkaline Phosphatase Total Protein Albumin Lipase Urine Color Urine Appearance Urine pH Ur Specific [place] Urine Protein Urine Glucose (UA) Urine Ketones Urine Blood Urine Nitrite Ur Leukocyte Esterase Urine WBC (Auto) Urine RBC (Auto) Blood Type Antibody Screen Impressions: Abdomen/Pelvis CT 10/19/19 04:51 IMPRESSION: 1. No acute inflammatory or obstructive process identified. 2. Hepatic steatosis. 3. Diverticulosis without evidence of acute diverticulitis. This exam was performed according to our departmental dose-optimization program, which includes automated exposure control, adjustment of the mA and/or kV according to patient size and/or use of iterative reconstruction technique. Assessment & Plan - Diagnosis (1) Abdominal pain Qualifiers: Abdominal location: lower abdomen, unspecified Qualified Code(s): R10.30 - Lower abdominal pain, unspecified Is this a current diagnosis for this admission?: Yes (2) GI bleed Qualifiers: GI bleed type/associated pathology: melena Qualified Code(s): K92.1 - Melena Is this a current diagnosis for this admission?: Yes (3) Hypertension Is this a current diagnosis for this admission?: Yes (4) Lupus (systemic lupus erythematosus) Qualifiers: Systemic lupus erythematosus type: unspecified Systemic lupus erythematosus organ involvement: unspecified Qualified Code(s): M32.9 - Systemic lupus erythematosus, unspecified Is this a current diagnosis for this admission?: Yes - Time Time Spent: 30 to 50 Minutes - Inpatient Certification Medical Necessity: Need Close Monitoring Due to Risk of Patient Decompensation, Need For IV Fluids, Need for Surgery - Plan Summary Plan Summary: 54-year-old female with history of lupus on cyclosporine and prednisone brought to the ED last night by her daughter for severe weakness and inability to swallow any liquids. She was noted to have a hemoglobin of 8 and this morning came down to 7 after hydration. Noted to have dark stools this morning positive for Hemoccult. She was started on Protonix Agree with blood transfusion and Protonix drip Plans: We will start bowel prep and schedule EGD and colonoscopy in a.m. Check coagulation status
[2019-10-19] MEDS ORDERED: PEG 3350/NA SULF,BICARB,CL/KCL 4000 ML PO ONE ×2 (13:30→15:00)
[2019-10-19] MEDS: FENTANYL CITRATE INJ/PF 100 MCG/2 ML AMPUL IV PRN ×3 (15:05→23:30)
[2019-10-19] MEDS: ONDANSETRON HCL INJ/PF 4 MG/2 ML SDV IV PRN ×2 (15:12→20:27)
[2019-10-19 16:44] LABS: PROTHROMBIN TIME 13.2 SEC (11.4-15.4)
[2019-10-19 16:45] LABS: PARTIAL THROMBOPLASTIN TIME 32.3 SEC (23.5-35.8)
[2019-10-19] MEDS: NORMAL SALINE 100 ML with PANTOPRAZOLE SODIUM 80 MG IV PRN ×2 (18:07)
[2019-10-19 19:00] LABS: HEMATOCRIT 26.1 % (36.0-47.0); HEMOGLOBIN 8.8 g/dL (12.0-15.5); MEAN CORPUSCULAR HGB CONC 33.7 g/dL (32.0-36.0); PLATELET COUNT 258 10^3/uL (150-450); RED BLOOD COUNT 2.75 10^6/uL (3.72-5.28); RED CELL DISTRIBUTION WIDTH 16.6 % (11.5-14.0); WHITE BLOOD COUNT 9.6 10^3/uL (4.0-10.5)
[2019-10-19 19:05] LABS: MEAN CORPUSCULAR VOLUME 95 fl (80-97)
[2019-10-19 19:21] LABS: ABSOLUTE LYMPHOCYTES# (MANUAL) 0.4 10^3/uL (0.5-4.7); ABSOLUTE MONOCYTES # (MANUAL) 0.9 10^3/uL (0.1-1.4); BASOPHILS % (MANUAL) 0 % (0-2); EOSINOPHILS % (MANUAL) 0 % (0-6); LYMPHOCYTES % (MANUAL) 4 % (13-45); MONOCYTES % (MANUAL) 9 % (3-13); SEGMENTED NEUTROPHILS % (MAN) 87 % (42-78); TOTAL CELLS COUNTED 100
[2019-10-19 19:22] LABS: ANISOCYTOSIS SLIGHT; PLATELET COMMENT ADEQUATE
[2019-10-19] MEDS: DEXTROSE 5%-1/2 NORMAL SALINE 1,000 ML IV PRN (20:28)
[2019-10-20] MEDS ORDERED: ACETAMINOPHEN 1,000 MG/100 ML RTUPB IV ONE (02:45)
[2019-10-20 03:10] LABS: HEMATOCRIT 22.9 % (36.0-47.0); MEAN CORPUSCULAR HEMOGLOBIN 31.8 pg (27.0-33.4); MEAN CORPUSCULAR HGB CONC 33.8 g/dL (32.0-36.0); MEAN CORPUSCULAR VOLUME 94 fl (80-97); PLATELET COUNT 244 10^3/uL (150-450); RED BLOOD COUNT 2.44 10^6/uL (3.72-5.28); RED CELL DISTRIBUTION WIDTH 16.6 % (11.5-14.0); WHITE BLOOD COUNT 8.1 10^3/uL (4.0-10.5)
[2019-10-20 03:17] LABS: HEMOGLOBIN 7.7 g/dL (12.0-15.5)
[2019-10-20] MEDS: ONDANSETRON HCL INJ/PF 4 MG/2 ML SDV IV PRN ×3 (04:19→20:17)
[2019-10-20] MEDS: FENTANYL CITRATE INJ/PF 100 MCG/2 ML AMPUL IV PRN ×2 (04:20→21:11)
[2019-10-20] MEDS: NORMAL SALINE 100 ML with PANTOPRAZOLE SODIUM 80 MG IV PRN ×6 (04:21→21:09)
[2019-10-20] MEDS: DEXTROSE 5%-1/2 NORMAL SALINE 1,000 ML IV PRN ×3 (04:21→21:09)
[2019-10-20] MEDS ORDERED: DEXTROSE 50%-WATER 25 GM/50 ML DISP.SYRIN IV PRN (06:00)
--- NOTE | 2019-10-20 08:55 | PDOC PROGRESS REPORT ---
Subjective Progress Note for:: 10/20/19 Subjective:: 10/20/2019 no complaint is am Reason For Visit: UPPER GI BLEED Physical Exam Vital Signs: Temp Pulse Resp BP Pulse Ox 98.6 F 91 16 128/69 H 97 10/20/19 04:07 10/20/19 07:00 10/20/19 04:07 10/20/19 04:07 10/20/19 04:07 Intake & Output 10/19/19 10/20/19 10/21/19 06:59 06:59 06:59 Intake Total 50 4809 Balance 50 4809 Weight 72.575 kg 72.9 kg General appearance: PRESENT: no acute distress, well-developed, well-nourished Neck exam: ABSENT: carotid bruit, JVD, lymphadenopathy, thyromegaly Respiratory exam: PRESENT: clear to auscultation janis. ABSENT: rales, rhonchi, wheezes Cardiovascular exam: PRESENT: RRR. ABSENT: diastolic murmur, rubs, systolic murmur Pulses: PRESENT: +1 pedal pulses bilateral Vascular exam: PRESENT: normal capillary refill GI/Abdominal exam: PRESENT: normal bowel sounds, soft. ABSENT: distended, guarding, mass, organolmegaly, rebound, tenderness Extremities exam: PRESENT: full ROM. ABSENT: calf tenderness, clubbing, pedal edema Neurological exam: PRESENT: alert, awake, oriented to person, oriented to place, oriented to time, oriented to situation, CN II-XII grossly intact. ABSENT: motor sensory deficit Psychiatric exam: PRESENT: appropriate affect, normal mood. ABSENT: homicidal ideation, suicidal ideation Skin exam: PRESENT: dry, intact, warm. ABSENT: cyanosis, rash Results Laboratory Results: 10/20/19 03:02 10/19/19 10:35 10/19/19 10/19/19 10/19/19 09:30 09:30 09:30 WBC 8.1 RBC 2.10 L Hgb 7.0 L Hct 20.7 L MCV 99 H MCH 33.3 MCHC 33.7 RDW 14.9 H Plt Count 204 Seg Neutrophils % Not Reportable Sodium Cancelled Potassium Cancelled Chloride Cancelled Carbon Dioxide Cancelled Anion Gap Cancelled BUN Cancelled Creatinine Cancelled Est GFR ( Amer) Cancelled Est GFR (Non-Af Amer) Cancelled Glucose Cancelled Calcium Cancelled Phosphorus Magnesium Blood Type A POSITIVE Antibody Screen NEGATIVE 10/19/19 10/19/19 10/20/19 10:35 18:19 03:02 WBC 9.6 8.1 RBC 2.75 L 2.44 L Hgb 8.8 L 7.7 L Hct 26.1 L 22.9 L MCV 95 D 94 MCH 32.0 31.8 MCHC 33.7 33.8 RDW 16.6 H 16.6 H Plt Count 258 244 Seg Neutrophils % Not Reportable Sodium 134.4 L Potassium 3.4 L Chloride 105 Carbon Dioxide 23 Anion Gap 6 BUN 28 H Creatinine 1.20 Est GFR ( Amer) 57 L Est GFR (Non-Af Amer) Glucose 38 L* Calcium 6.9 L* Phosphorus Magnesium Blood Type Antibody Screen 10/20/19 03:02 WBC RBC Hgb Hct MCV MCH MCHC RDW Plt Count Seg Neutrophils % Sodium Potassium Chloride Carbon Dioxide Anion Gap BUN Creatinine Est GFR ( Amer) Est GFR (Non-Af Amer) Glucose Calcium Phosphorus 3.0 Magnesium 1.4 L Blood Type Antibody Screen Impressions: Abdomen/Pelvis CT 10/19/19 04:51 IMPRESSION: 1. No acute inflammatory or obstructive process identified. 2. Hepatic steatosis. 3. Diverticulosis without evidence of acute diverticulitis. This exam was performed according to our departmental dose-optimization program, which includes automated exposure control, adjustment of the mA and/or kV according to patient size and/or use of iterative reconstruction technique. Assessment and Plan - Diagnosis (1) GI bleed Qualifiers: GI bleed type/associated pathology: melena Qualified Code(s): K92.1 - Melena Is this a current diagnosis for this admission?: Yes Plan: 10/19/2019 mid to [facility]. N.p.o. Protonix drip. Octreotide drip. Consult Dr. Castillo for endoscopy. 4 units packed cells on hold. Serial hemoglobin hematoc rit every 4 hours until patient has underwent endoscopy. Transfuse as necessary 10/20/2019-Protonix and octreotide drip continue. Patient is to go for upper and lower scopes today. Will follow (2) Abdominal pain Qualifiers: Abdominal location: lower abdomen, unspecified Qualified Code(s): R10.30 - Lower abdominal pain, unspecified Is this a current diagnosis for this admission?: Yes Plan: 10/19/2019-fentanyl 50 mcg IV every 4 hours as needed 10/20/2019-improved. Continue fentanyl as needed (3) Urinary tract infection Qualifiers: Urinary tract infection type: acute cystitis Hematuria presence: without hematuria Qualified Code(s): N30.00 - Acute cystitis without hematuria Is this a current diagnosis for this admission?: Yes Plan: 10/19/2019-Rocephin 1 g IV daily until cultures return 10/20/2019-Rocephin continues. Await cultures (4) Cellulitis of right lower extremity Is this a current diagnosis for this admission?: Yes Plan: 10/19/2019-continue wound care per nursing 10/20/2019-continue wound care (5) Hypertension Is this a current diagnosis for this admission?: Yes Plan: 10/19/2019-hydralazine 10 mg IV every 4 hours as needed systolic above 160 until patient is taking p.o. at which time we will convert her back to her home medications. 10/20/2019 of stable this time continue PRN hydralazine - Time Time Spent with patient: 15-24 minutes - Inpatient Certification Based on my medical assessment, after consideration of the patient's comorbidities, presenting symptoms, or acuity I expect that the services needed warrant INPATIENT care.: Yes I certify that my determination is in accordance with my understanding of Medicare's requirements for reasonable and necessary INPATIENT services [42 CFR 412.3e].: Yes Medical Necessity: Need For IV Fluids, Other - Upper and lower scoping
[2019-10-20] MEDS: CEFTRIAXONE 1 GM/D5W RTU 1 GM/50 ML RTUPB IV SCH (09:53)
[2019-10-20] MEDS: NORMAL SALINE 500 ML with OCTREOTIDE ACETATE 500 MCG IV PRN ×4 (09:53→20:36)
[2019-10-20 10:52] LABS: HEMATOCRIT 23.3 % (36.0-47.0); MEAN CORPUSCULAR HEMOGLOBIN 31.9 pg (27.0-33.4); MEAN CORPUSCULAR HGB CONC 33.8 g/dL (32.0-36.0); MEAN CORPUSCULAR VOLUME 94 fl (80-97); PLATELET COUNT 245 10^3/uL (150-450); RED BLOOD COUNT 2.46 10^6/uL (3.72-5.28); RED CELL DISTRIBUTION WIDTH 16.5 % (11.5-14.0); WHITE BLOOD COUNT 6.3 10^3/uL (4.0-10.5)
[2019-10-20 11:08] LABS: ANION GAP 9 (5-19); BLOOD UREA NITROGEN 16 mg/dL (7-20); CALCIUM 8.3 mg/dL (8.4-10.2); CARBON DIOXIDE 23 mmol/L (22-30); CHLORIDE 100 mmol/L (98-107); GLUCOSE 124 mg/dL (75-110); POTASSIUM 3.3 mmol/L (3.6-5.0)
[2019-10-20 11:12] LABS: HEMOGLOBIN 7.9 g/dL (12.0-15.5)
[2019-10-20] MEDS ORDERED: MIDAZOLAM 2 MG/2 ML INJ ONE (16:59)
[2019-10-20] MEDS ORDERED: PROPOFOL INJ 200 MG/20 ML VIAL IV ONE (17:00)
[2019-10-20] MEDS ORDERED: FENTANYL CITRATE INJ/PF 100 MCG/2 ML AMPUL IV PRN ×3 (17:04)
[2019-10-20] MEDS ORDERED: PROMETHAZINE HCL INJ 25 MG/1 ML VIAL IV PRN ×2 (17:04)
[2019-10-20] MEDS ORDERED: ONDANSETRON HCL INJ/PF 4 MG/2 ML SDV IV PRN (17:04)
[2019-10-20] MEDS ORDERED: DIPHENHYDRAMINE HCL 50 MG/ML VIAL IV PRN (17:04)
[2019-10-20] MEDS ORDERED: MEPERIDINE HCL/PF INJ 25 MG/1 ML DISP.SYRIN IV PRN (17:04)
[2019-10-20] MEDS ORDERED: MORPHINE SULFATE 10 MG/ML INJ IV PRN (17:04)
--- NOTE | 2019-10-20 18:06 | PDOC PROGRESS REPORT ---
Subjective Progress Note for:: 10/20/19 Subjective:: This is a 54-year-old female with melena and anemia. She has a history of lymphocytic colitis as well as gastric ulcers. She denies hematochezia, hematemesis, abdominal pain. She has a history of lupus and is on chronic steroids. She denies chest pain, shortness of breath, fevers, chills. She does report right shoulder pain and melena. Reason For Visit: UPPER GI BLEED Physical Exam Vital Signs: Temp Pulse Resp BP Pulse Ox 98.4 F 97 16 138/98 H 97 10/20/19 08:16 10/20/19 14:00 10/20/19 04:07 10/20/19 08:16 10/20/19 04:07 Intake & Output 10/19/19 10/20/19 10/21/19 06:59 06:59 06:59 Intake Total 50 4838 997 Balance 50 4838 997 Weight 72.575 kg 72.9 kg 72.9 kg General appearance: PRESENT: no acute distress, cooperative Head exam: PRESENT: atraumatic Eye exam: ABSENT: scleral icterus Mouth exam: PRESENT: neck supple Neck exam: ABSENT: tenderness, thyromegaly, tracheal deviation Respiratory exam: PRESENT: unlabored. ABSENT: tachypnea GI/Abdominal exam: PRESENT: soft. ABSENT: distended, firm, guarding, rigid, tenderness Rectal exam: PRESENT: deferred Musculoskeletal exam: PRESENT: tenderness - Right shoulder Neurological exam: PRESENT: alert, awake, oriented to person, oriented to place, oriented to time, oriented to situation Psychiatric exam: ABSENT: agitated, anxious, depressed Focused psych exam: ABSENT: delusional Skin exam: ABSENT: jaundice Results Laboratory Results: 10/20/19 10:35 10/20/19 10:35 10/19/19 10/20/19 10/20/19 18:19 03:02 03:02 WBC 9.6 8.1 RBC 2.75 L 2.44 L Hgb 8.8 L 7.7 L Hct 26.1 L 22.9 L MCV 95 D 94 MCH 32.0 31.8 MCHC 33.7 33.8 RDW 16.6 H 16.6 H Plt Count 258 244 Seg Neutrophils % Not Reportable Sodium Potassium Chloride Carbon Dioxide Anion Gap BUN Creatinine Est GFR ( Amer) Glucose Calcium Phosphorus 3.0 Magnesium 1.4 L 10/20/19 10/20/19 10:35 10:35 WBC 6.3 RBC 2.46 L Hgb 7.9 L Hct 23.3 L MCV 94 MCH 31.9 MCHC 33.8 RDW 16.5 H Plt Count 245 Seg Neutrophils % Sodium 132.4 L Potassium 3.3 L Chloride 100 Carbon Dioxide 23 Anion Gap 9 BUN 16 Creatinine 1.02 Est GFR ( Amer) > 60 Glucose 124 H Calcium 8.3 L Phosphorus Magnesium Impressions: Abdomen/Pelvis CT 10/19/19 04:51 IMPRESSION: 1. No acute inflammatory or obstructive process identified. 2. Hepatic steatosis. 3. Diverticulosis without evidence of acute diverticulitis. This exam was performed according to our departmental dose-optimization program, which includes automated exposure control, adjustment of the mA and/or kV according to patient size and/or use of iterative reconstruction technique. Assessment & Plan - Diagnosis (1) Melena Is this a current diagnosis for this admission?: Yes (2) Anemia Qualifiers: Anemia type: unspecified type Qualified Code(s): D64.9 - Anemia, unspecified Is this a current diagnosis for this admission?: Yes - Time Time Spent with patient: Less than 15 minutes - Plan Summary Plan Summary: This is a 54-year-old female with anemia and melena. Her last colonoscopy was approximately 1 year ago which discovered lymphocytic colitis. The patient has been on steroids for her lymphocytic colitis and lupus, continuously. The patient also has a history of gastric ulcers. Discussed with her the need for endoscopy to identify her source of bleeding. The patient has agreed to upper and lower endoscopy. Risks/benefits discussed, informed consent obtained, and all questions answered.
--- NOTE | 2019-10-20 18:12 | Operative Report ---
Nonrecallable Operative Report DATE OF SURGERY: 10/20/19 PREOPERATIVE DIAGNOSIS: 1. Anemia. 2. Melena. POSTOPERATIVE DIAGNOSIS: 1. Large hiatal hernia. 2. reflux esophagitis. 3. Bleeding duodenal ulcer. 4. No evidence of blood or bleeding in the portions of the colon that were surveyed. OPERATION: 1. EGD with biopsy. 2. Deploy meant of resolution clip to halt bleeding. 3. Flexible sigmoidoscopy. SURGEON: KOREY ROMERO ANESTHESIA: GA TISSUE REMOVED OR ALTERED: Biopsy of duodenum COMPLICATIONS: None apparent ESTIMATED BLOOD LOSS: Minimal PROCEDURE: Drains/implants: Resolution clip on duodenal ulcer. Procedure in detail: After informed consent was obtained, the patient was brought to the operating room and laid in the left lateral decubitus position. The endoscope was passed down the oropharynx, down the esophagus, and into the stomach. There is a large hiatal hernia identified with reflux esophagitis present. The scope was pushed into the stomach. The stomach was insufflated. There was new appearing blood within the stomach, a small amount. The scope was pushed into the pylorus. In the first portion of the duodenum an ulcerated area was identified. There was slow active bleeding present. A biopsy was taken at the margin of the ulcer. Next, the ulcer was clipped with a resolution clip. This halted the bleeding. The scope was withdrawn into the stomach. A retroflexion maneuver was performed, visualizing the large hiatal hernia. The scope was pulled up the esophagus. There was reflux esophagitis in the distal esophagus, however there were no other ulcerations or lesions throughout the body of the esophagus. The scope was removed from the oropharynx, and this por tion of the procedure was concluded. The colonoscope was inserted into the rectum. The colonoscope was inserted up the rectum, sigmoid colon, and descending colon. The scope was advanced to 80 cm. No old blood or new blood was identified. The colon was very clean. The prep was excellent. At this time, it was felt unnecessary to continue with the remainder of the colonoscopy, as her last colonoscopy was 1 year ago and failed to show malignancy. The flexible sigmoidoscopy was then completed, and the scope was withdrawn and removed from the patient. No bleeding, inflammation, ulceration, or other abnormality could be identified throughout the rectum, sigmoid colon, and descending colon. The procedure was at this time concluded. All sponge, instrument, and needle counts were correct x2. Condition: Fair.
[2019-10-20] MEDS: SUCRALFATE 1 GM TABLET PO SCH (21:11)
[2019-10-21] MEDS: ONDANSETRON HCL INJ/PF 4 MG/2 ML SDV IV PRN ×5 (00:56→20:43)
[2019-10-21] MEDS: FENTANYL CITRATE INJ/PF 100 MCG/2 ML AMPUL IV PRN ×3 (00:56→10:50)
[2019-10-21] MEDS: DEXTROSE 5%-1/2 NORMAL SALINE 1,000 ML IV PRN ×3 (04:56→22:58)
[2019-10-21] MEDS: NORMAL SALINE 500 ML with OCTREOTIDE ACETATE 500 MCG IV PRN ×2 (06:42)
[2019-10-21] MEDS: NORMAL SALINE 100 ML with PANTOPRAZOLE SODIUM 80 MG IV PRN ×2 (07:19)
--- NOTE | 2019-10-21 08:25 | PDOC PROGRESS REPORT ---
Subjective Progress Note for:: 10/21/19 Subjective:: 10/20/2019 no complaint is am 10/21/2019-no complaints Reason For Visit: UPPER GI BLEED Physical Exam Vital Signs: Temp Pulse Resp BP Pulse Ox 98.2 F 94 20 126/78 H 95 10/21/19 03:51 10/21/19 07:00 10/21/19 03:51 10/21/19 03:51 10/21/19 03:51 Intake & Output 10/20/19 10/21/19 10/22/19 06:59 06:59 06:59 Intake Total 4838 4758 100 Output Total 1400 Balance 4838 3358 100 Weight 72.9 kg 78.4 kg General appearance: PRESENT: no acute distress, well-developed, well-nourished Neck exam: ABSENT: carotid bruit, JVD, lymphadenopathy, thyromegaly Respiratory exam: PRESENT: clear to auscultation janis. ABSENT: rales, rhonchi, wheezes Cardiovascular exam: PRESENT: RRR. ABSENT: diastolic murmur, rubs, systolic murmur Pulses: PRESENT: +1 pedal pulses bilateral Vascular exam: PRESENT: normal capillary refill GI/Abdominal exam: PRESENT: normal bowel sounds, soft. ABSENT: distended, guarding, mass, organolmegaly, rebound, tenderness Extremities exam: PRESENT: full ROM. ABSENT: calf tenderness, clubbing, pedal edema Neurological exam: PRESENT: alert, awake, oriented to person, oriented to place, oriented to time, oriented to situation, CN II-XII grossly intact. ABSENT: motor sensory deficit Psychiatric exam: PRESENT: appropriate affect, normal mood. ABSENT: homicidal ideation, suicidal ideation Skin exam: PRESENT: dry, intact, warm. ABSENT: cyanosis, rash Results Laboratory Results: 10/20/19 10:35 10/20/19 10:35 10/20/19 10/20/19 10:35 10:35 WBC 6.3 RBC 2.46 L Hgb 7.9 L Hct 23.3 L MCV 94 MCH 31.9 MCHC 33.8 RDW 16.5 H Plt Count 245 Sodium 132.4 L Potassium 3.3 L Chloride 100 Carbon Dioxide 23 Anion Gap 9 BUN 16 Creatinine 1.02 Est GFR ( Amer) > 60 Glucose 124 H Calcium 8.3 L Impressions: Abdomen/Pelvis CT 10/19/19 04:51 IMPRESSION: 1. No acute inflammatory or obstructive process identified. 2. Hepatic steatosis. 3. Diverticulosis without evidence of acute diverticulitis. This exam was performed according to our departmental dose-optimization program, which includes automated exposure control, adjustment of the mA and/or kV according to patient size and/or use of iterative reconstruction technique. Assessment and Plan - Diagnosis (1) GI bleed Qualifiers: GI bleed type/associated pathology: melena Qualified Code(s): K92.1 - Me cal Is this a current diagnosis for this admission?: Yes Plan: 10/19/2019 mid to [facility]. N.p.o. Protonix drip. Octreotide drip. Consult Dr. Castillo for endoscopy. 4 units packed cells on hold. Serial hemoglobin hematocrit every 4 hours until patient has underwent endoscopy. Transfuse as necessary 10/20/2019-Protonix and octreotide drip continue. Patient is to go for upper and lower scopes today. Will follow 10/21/2019-Protonix and octreotide drip are DC'd. Protonix 40 mg p.o. twice daily along with Carafate. Scope did show 1 small area of bleed which was clipped. I will keep 1 more night to assure stabilization of hemoglobin hematocrit. (2) Abdominal pain Qualifiers: Abdominal location: lower abdomen, unspecified Qualified Code(s): R10.30 - Lower abdominal pain, unspecified Is this a current diagnosis for this admission?: Yes Plan: 10/19/2019-fentanyl 50 mcg IV every 4 hours as needed 10/20/2019-improved. Continue fentanyl as needed 10/21/2019-stable (3) Urinary tract infection Qualifiers: Urinary tract infection type: acute cystitis Hematuria presence: without hematuria Qualified Code(s): N30.00 - Acute cystitis without hematuria Is this a current diagnosis for this admission?: Yes Plan: 10/19/2019-Rocephin 1 g IV daily until cultures return 10/20/2019-Rocephin continues. Await cultures 10/21/2019-Rocephin. Await cultures (4) Cellulitis of right lower extremity Is this a current diagnosis for this admission?: Yes Plan: 10/19/2019-continue wound care per nursing 10/20/2019-continue wound care 10/21/2019-wound care per nursing (5) Hypertension Is this a current diagnosis for this admission?: Yes Plan: 10/19/2019-hydralazine 10 mg IV every 4 hours as needed systolic above 160 until patient is taking p.o. at which time we will convert her back to her home medications. 10/20/2019 of stable this time continue PRN hydralazine 10/21/2019-stable - Time Time Spent with patient: 15-24 minutes - Inpatient Certification Based on my medical assessment, after consideration of the patient's comorbidities, presenting symptoms, or acuity I expect that the services needed warrant INPATIENT care.: Yes I certify that my determination is in accordance with my understanding of Medicare's requirements for reasonable and necessary INPATIENT services [42 CFR 412.3e].: Yes Medical Necessity: Significant Comorbidiites Make Outpatient Treatment Too Risky, Need Close Monitoring Due to Risk of Patient Decompensation
[2019-10-21 09:18] LABS: HEMATOCRIT 23.3 % (36.0-47.0); MEAN CORPUSCULAR HEMOGLOBIN 31.7 pg (27.0-33.4); MEAN CORPUSCULAR HGB CONC 33.3 g/dL (32.0-36.0); MEAN CORPUSCULAR VOLUME 96 fl (80-97); PLATELET COUNT 227 10^3/uL (150-450); RED BLOOD COUNT 2.44 10^6/uL (3.72-5.28); RED CELL DISTRIBUTION WIDTH 16.7 % (11.5-14.0); WHITE BLOOD COUNT 4.7 10^3/uL (4.0-10.5)
[2019-10-21 09:22] LABS: HEMOGLOBIN 7.7 g/dL (12.0-15.5)
[2019-10-21] MEDS: SUCRALFATE 1 GM TABLET PO SCH ×4 (09:33→21:55)
[2019-10-21] MEDS: CEFTRIAXONE 1 GM/D5W RTU 1 GM/50 ML RTUPB IV SCH (09:33)
[2019-10-21 09:45] LABS: ANION GAP 10 (5-19); BLOOD UREA NITROGEN 8 mg/dL (7-20); CALCIUM 7.9 mg/dL (8.4-10.2); CARBON DIOXIDE 21 mmol/L (22-30); CHLORIDE 101 mmol/L (98-107); GLUCOSE 109 mg/dL (75-110); POTASSIUM 3.2 mmol/L (3.6-5.0)
[2019-10-21] MEDS: PANTOPRAZOLE SODIUM 40 MG TABLET.DR PO SCH (17:55)
[2019-10-21] MEDS: BUTALB/ACETAMINOPHEN/CAFFEINE 1 TAB EACH PO PRN ×2 (17:55→21:55)
[2019-10-21] MEDS ORDERED: METOCLOPRAMIDE HCL INJ/PF 10 MG/2 ML SDV IV ONE (21:30)
[2019-10-22] MEDS: FENTANYL CITRATE INJ/PF 100 MCG/2 ML AMPUL IV PRN (00:20)
[2019-10-22] MEDS: ONDANSETRON HCL INJ/PF 4 MG/2 ML SDV IV PRN ×3 (00:20→09:53)
[2019-10-22] MEDS: METOCLOPRAMIDE HCL INJ/PF 10 MG/2 ML SDV IV SCH ×3 (03:05→14:24)
[2019-10-22] MEDS: PANTOPRAZOLE SODIUM 40 MG TABLET.DR PO SCH (05:06)
[2019-10-22 06:28] LABS: HEMATOCRIT 23.9 % (36.0-47.0); MEAN CORPUSCULAR HEMOGLOBIN 32.2 pg (27.0-33.4); MEAN CORPUSCULAR HGB CONC 33.6 g/dL (32.0-36.0); MEAN CORPUSCULAR VOLUME 96 fl (80-97); PLATELET COUNT 238 10^3/uL (150-450); RED CELL DISTRIBUTION WIDTH 16.6 % (11.5-14.0); WHITE BLOOD COUNT 4.8 10^3/uL (4.0-10.5)
[2019-10-22] MEDS: DEXTROSE 5%-1/2 NORMAL SALINE 1,000 ML IV PRN (06:57)
[2019-10-22 07:51] LABS: ANION GAP 12 (5-19); BLOOD UREA NITROGEN 4 mg/dL (7-20); CALCIUM 7.9 mg/dL (8.4-10.2); CARBON DIOXIDE 20 mmol/L (22-30); CHLORIDE 99 mmol/L (98-107); GLUCOSE 98 mg/dL (75-110)
--- NOTE | 2019-10-22 08:24 | PDOC PROGRESS REPORT ---
Subjective Progress Note for:: 10/22/19 Subjective:: 10/20/2019 no complaint is am 10/21/2019-no complaints 10/22/2019-swelling bilateral lower extremities. Upper extremities. Reason For Visit: UPPER GI BLEED Physical Exam Vital Signs: Temp Pulse Resp BP Pulse Ox 98.9 F 105 H 16 134/77 H 98 10/22/19 04:00 10/22/19 07:00 10/22/19 04:00 10/22/19 04:00 10/22/19 04:00 Intake & Output 10/21/19 10/22/19 10/23/19 06:59 06:59 06:59 Intake Total 4758 3667 Output Total 1400 750 Balance 3358 2917 Weight 78.4 kg 80.1 kg General appearance: PRESENT: no acute distress, well-developed, well-nourished Neck exam: ABSENT: carotid bruit, JVD, lymphadenopathy, thyromegaly Respiratory exam: PRESENT: decreased breath sounds, symmetrical, unlabored. ABSENT: rales, rhonchi, wheezes Cardiovascular exam: PRESENT: RRR. ABSENT: diastolic murmur, rubs, systolic murmur Pulses: PRESENT: +1 pedal pulses bilateral Vascular exam: PRESENT: normal capillary refill GI/Abdominal exam: PRESENT: normal bowel sounds, soft. ABSENT: distended, guarding, mass, organolmegaly, rebound, tenderness Extremities exam: PRESENT: +2 edema - Bilateral lower extremities. Upper extremities Neurological exam: PRESENT: alert, awake, oriented to person, oriented to place, oriented to time, oriented to situation, CN II-XII grossly intact. ABSENT: motor sensory deficit Psychiatric exam: PRESENT: appropriate affect, normal mood. ABSENT: homicidal ideation, suicidal ideation Skin exam: PRESENT: dry, intact, warm. ABSENT: cyanosis, rash Results Laboratory Results: 10/22/19 05:50 10/22/19 05:50 10/21/19 10/21/19 10/22/19 09:04 09:04 05:50 WBC 4.7 4.8 RBC 2.44 L 2.50 L Hgb 7.7 L 8.0 L Hct 23.3 L 23.9 L MCV 96 96 MCH 31.7 32.2 MCHC 33.3 33.6 RDW 16.7 H 16.6 H Plt Count 227 238 Sodium 131.7 L Potassium 3.2 L Chloride 101 Carbon Dioxide 21 L Anion Gap 10 BUN 8 Creatinine 0.80 Est GFR ( Amer) > 60 Glucose 109 Calcium 7.9 L Magnesium 10/22/19 05:50 WBC RBC Hgb Hct MCV MCH MCHC RDW Plt Count Sodium 130.5 L Potassium 3.0 L* Chloride 99 Carbon Dioxide 20 L Anion Gap 12 BUN 4 L Creatinine 0.70 Est GFR ( Amer) > 60 Glucose 98 Calcium 7.9 L Magnesium 1.3 L Impressions: Abdomen/Pelvis CT 10/19/19 04:51 IMPRESSION: 1. No acute inflammatory or obstructive process identified. 2. Hepatic steatosis. 3. Diverticulosis without evidence of acute diverticulitis. This exam was performed according to our departmental dose-optimization program, which includes automated exposure control, adjustment of the mA and/or kV according to patient size and/or use of iterative reconstruction technique. Assessment and Plan - Diagnosis (1) GI bleed Qualifiers: GI bleed type/associated pathology: melena Qualified Code(s): K92.1 - Melena Is this a current diagnosis for this admission?: Yes Plan: 10/19/2019 mid to [facility]. N.p.o. Protonix drip. Octreotide drip. Consult Dr. Castillo for endoscopy. 4 units packed cells on hold. Serial hemoglobin hematocrit every 4 hours until patient has underwent endoscopy. Transfuse as necessary 10/20/2019-Protonix and octreotide drip continue. Patient is to go for upper and lower scopes today. Will follow 10/21/2019-Protonix and octreotide drip are DC'd. Protonix 40 mg p.o. twice daily along with Carafate. Scope did show 1 small area of bleed which was clipped. I will keep 1 more night to assure stabilization of hemoglobin hematocrit. 10/22/2019-patient still stable with hemoglobin hematocrit. She has got some fluid overload secondary to blood transfusions. I will diurese her slowly at this time anticipate discharge home tomorrow. (2) Abdominal pain Qualifiers: Abdominal location: lower abdomen, unspecified Qualified Code(s): R10.30 - Lower abdominal pain, unspecified Is this a current diagnosis for this admission?: Yes Plan: 10/19/2019-fentanyl 50 mcg IV every 4 hours as needed 10/20/2019-improved. Continue fentanyl as needed 10/21/2019-stable 10/22/2019-stable. Continue as needed fentanyl (3) Urinary tract infection Qualifiers: Urinary tract infection type: acute cystitis Hematuria presence: without hematuria Qualified Code(s): N30.00 - Acute cystitis without hematuria Is this a current diagnosis for this admission?: Yes Plan: 10/19/2019-Rocephin 1 g IV daily until cultures return 10/20/2019-Rocephin continues. Await cultures 10/21/2019-Rocephin. Await cultures 10/22/2019-patient remains on Rocephin. Cultures are pending. (4) Cellulitis of right lower extremity Is this a current diagnosis for this admission?: Yes Plan: 10/19/2019-continue wound care per nursing 10/20/2019-continue wound care 10/21/2019-wound care per nursing 10/22/2019-nursing continues wound care (5) Hypertension Is this a current diagnosis for this admission?: Yes Plan: 10/19/2019-hydralazine 10 mg IV every 4 hours as needed systolic above 160 until patient is taking p.o. at which time we will convert her back to her home medications. 10/20/2019 of stable this time continue PRN hydralazine 10/21/2019-stable 10/22/2019-stable continue home meds and as needed hydralazine. (6) Hypokalemia Is this a current diagnosis for this admission?: Yes Plan: 10/22/2019 potassium chloride 40 mEq p.o. x3 doses today. Repeat BMP in a.m. (7) Hypomagnesemia Is this a current diagnosis for this admission?: Yes Plan: 10/22/2019-2 g IV magnesium repeat magnesium level in a.m. (8) Edema Is this a current diagnosis for this admission?: Yes Plan: 10/22/2019-patient with edema secondary to blood transfusion and fluids. I will diurese at this time Lasix 40 mg IV twice daily. Will reassess in the a.m. - Time Time Spent with patient: 15-24 minutes - Inpatient Certification Based on my medical assessment, after consideration of the patient's comorbidities, presenting symptoms, or acuity I expect that the services needed warrant INPATIENT care.: Yes I certify that my determination is in accordance with my understanding of Medicare's requirements for reasonable and necessary INPATIENT services [42 CFR 412.3e].: Yes Medical Necessity: Significant Comorbidiites Make Outpatient Treatment Too Risky, Need Close Monitoring Due to Risk of Patient Decompensation
[2019-10-22] MEDS ORDERED: OXYCODONE-ACETAMINOPHEN 5-325 MG TABLET PO PRN (08:39)
[2019-10-22] MEDS: MAGNESIUM SULFATE/D5W 1 GM/100 ML RTUPB IV SCH ×2 (09:44→11:10)
[2019-10-22] MEDS: POTASSIUM CHLORIDE 10 MEQ TABLET.ER PO SCH ×2 (09:45→14:24)
[2019-10-22] MEDS: SUCRALFATE 1 GM TABLET PO SCH ×2 (09:46→14:25)
--- NOTE | 2019-10-22 09:57 | PDOC DISCHARGE SUMMARY ---
Impression - Admit/DC Date/PCP Admission Date/Primary Care Provider: 10/19/19 08:19 LILLIANA MEJIA MD Discharge Date: 10/22/19 - Discharge Diagnosis (1) GI bleed Is this a current diagnosis for this admission?: Yes (2) Abdominal pain Is this a current diagnosis for this admission?: Yes (3) Urinary tract infection Is this a current diagnosis for this admission?: Yes (4) Cellulitis of right lower extremity Is this a current diagnosis for this admission?: Yes (5) Hypertension Is this a current diagnosis for this admission?: Yes (6) Hypokalemia Is this a current diagnosis for this admission?: Yes (7) Hypomagnesemia Is this a current diagnosis for this admission?: Yes (8) Edema Is this a current diagnosis for this admission?: Yes - Additional Information Resuscitation Status: Full Code Discharge Diet: As Tolerated Discharge Activity: Activity As Tolerated Referrals: LILLIANA MEJIA MD [Primary Care Provider] - Follow up as needed Prescriptions: Sucralfate [Carafate 1 gm Tablet] 1 gm PO ACHS #120 tablet Pantoprazole Sodium [Protonix [address] Tablet] 40 mg PO BID@0600,1700 #60 tablet.dr Home Medications: Alendronate Sodium [Fosamax "Weekly" 35 mg Tablet] 35 mg PO WE@1000 10/19/19 Amlodipine Besylate [Norvasc 10 mg Tablet] 10 mg PO DAILY 10/19/19 Aspirin [Ecotrin 81 mg EC Tablet] 81 mg PO DAILY 10/19/19 Atorvastatin Calcium [Lipitor 10 mg Tablet] 10 mg PO QHS 10/19/19 Belimumab [Benlysta] 200 mg IM WE@1000 10/19/19 Duloxetine HCl [Cymbalta 30 mg Capsule.dr] 60 mg PO QHS 10/19/19 Ergocalciferol (Vitamin D2) [Drisdol 50,000 unit (1.25MG) Capsule] 50,000 unit PO WE@1000 10/19/19 Furosemide [Lasix 20 mg Tablet] 20 mg PO QPM 10/19/19 Furosemide [Lasix 20 mg Tablet] 40 mg PO QAM 10/19/19 Lisinopril/Hydrochlorothiazide [Lisinopril-Hctz 20-25 mg Tab] 1 tab PO DAILY 10/19/19 Potassium Chloride [Klor-Con 10 Meq Tablet ER] 30 meq PO DAILY 10/19/19 Pantoprazole Sodium [Protonix [address] Tablet] 40 mg PO BID@0600,1700 #60 tablet.dr 10/22/19 Sucralfate [Carafate 1 gm Tablet] 1 gm PO ACHS #120 tablet 10/22/19 History of Present Illiness History of Present Illness: AGUSTIN ORTEGA is a 54 year old female who presents to the ER with a past medical history of lupus with multiple complaints. Patient states she has pain in her legs she states is wound on anterior leg most importantly she was having low abdominal pain. Patient did pass melena stools in the ER and has a hemoglobin of 8.2 at this time. She does have chronic anemia however. She had no fever prior to arrival she is got no true aggravating factors. Hospital Course Hospital Course: Patient was admitted to [facility] from ER with lower abdominal pain. Patient was found to have a hemoglobin of 8.2. Patient did have several melanotic stools in the ER with subsequent drop in her hemoglobin to 7.0. Patient was tachycardic so she was transfused with 2 units of packed cells. Patient was prepped with GoLYTELY and underwent an EGD and colonoscopy. One small area of bleed was found which was clipped with no problems or complications. There was a biopsy taken for which I will have her follow-up with her primary care practitioner in regards to it. At this time patient has stopped bleeding. Her hemoglobin is stable at 8.0 and rising. She will be sent home on Protonix 40 mg p.o. twice daily and Carafate 1 g p.o. before meals and at bedtime. She will follow-up with her primary care practitioner within 1 week. Patient was also hypomagnesemic and hypokalemic and I have repleted these electrolytes before patient has been discharged. I have also prescribed Zofran 4 mg p.o. every 4 hours PRN for nausea or vomiting. Physical Exam Vital Signs: Temp Pulse Resp BP Pulse Ox 98.3 F 103 H 17 146/95 H 100 10/22/19 07:43 10/22/19 07:43 10/22/19 07:43 10/22/19 07:43 10/22/19 07:43 Intake & Output 10/21/19 10/22/19 10/23/19 06:59 06:59 06:59 Intake Total 1473 3669 Output Total 1400 750 Balance 3358 2917 Weight 78.4 kg 80.1 kg General appearance: PRESENT: no acute distress, well-developed, well-nourished Head exam: PRESENT: atraumatic, normocephalic Eye exam: PRESENT: conjunctiva pink, EOMI, PERRLA. ABSENT: scleral icterus Ear exam: PRESENT: normal external ear exam Mouth exam: PRESENT: moist, tongue midline Neck exam: ABSENT: carotid bruit, JVD, lymphadenopathy, thyromegaly Respiratory exam: PRESENT: clear to auscultation janis. ABSENT: rales, rhonchi, wheezes Cardiovascular exam: PRESENT: RRR. ABSENT: diastolic murmur, rubs, systolic murmur Pulses: PRESENT: normal dorsalis pedis pul Vascular exam: PRESENT: normal capillary refill GI/Abdominal exam: PRESENT: normal bowel sounds, soft. ABSENT: distended, guarding, mass, organolmegaly, rebound, tenderness Rectal exam: PRESENT: deferred Extremities exam: PRESENT: full ROM. ABSENT: calf tenderness, clubbing, pedal edema Neurological exam: PRESENT: alert, awake, oriented to person, oriented to place, oriented to time, oriented to situation, CN II-XII grossly intact. ABSENT: motor sensory deficit Psychiatric exam: PRESENT: appropriate affect, normal mood. ABSENT: homicidal ideation, suicidal ideation Skin exam: PRESENT: dry, intact, warm. ABSENT: cyanosis, rash Results Laboratory Results: WBC 4.8 10^3/uL (4.0-10.5) 10/22/19 05:50 RBC 2.50 10^6/uL (3.72-5.28) L 10/22/19 05:50 Hgb 8.0 g/dL (12.0-15.5) L 10/22/19 05:50 Hct 23.9 % (36.0-47.0) L 10/22/19 05:50 MCV 96 fl (80-97) 10/22/19 05:50 MCH 32.2 pg (27.0-33.4) 10/22/19 05:50 MCHC 33.6 g/dL (32.0-36.0) 10/22/19 05:50 RDW 16.6 % (11.5-14.0) H 10/22/19 05:50 Plt Count 238 10^3/uL (150-450) 10/22/19 05:50 Lymph % (Auto) Not Reportable 10/19/19 18:19 [place] % (Auto) Not Reportable 10/19/19 18:19 Eos % (Auto) Not Reportable 10/19/19 18:19 Baso % (Auto) Not Reportable 10/19/19 18:19 Absolute Neuts (auto) Not Reportable 10/19/19 18:19 Absolute Lymphs (auto) Not Reportable 10/19/19 18:19 Absolute Monos (auto) Not Reportable 10/19/19 18:19 Absolute Eos (auto) Not Reportable 10/19/19 18:19 Absolute Basos (auto) Not Reportable 10/19/19 18:19 Total Counted 100 10/19/19 18:19 Seg Neutrophils % Not Reportable 10/19/19 18:19 Seg Neuts % (Manual) 87 % (42-78) H 10/19/19 18:19 Band Neutrophils % 2 % (3-5) L 10/19/19 09:30 Lymphocytes % (Manual) 4 % (13-45) L 10/19/19 18:19 Monocytes % (Manual) 9 % (3-13) 10/19/19 18:19 Eosinophils % (Manual) 0 % (0-6) 10/19/19 18:19 Basophils % (Manual) 0 % (0-2) 10/19/19 18:19 Abs Neuts (Manual) 8.4 10^3/uL (1.7-8.2) H 10/19/19 18:19 Abs Lymphs (Manual) 0.4 10^3/uL (0.5-4.7) L 10/19/19 18:19 Abs Monocytes (Manual) 0.9 10^3/uL (0.1-1.4) 10/19/19 18:19 Absolute Eos (Manual) 0.0 10^3/uL (0.0-0.6) 10/19/19 18:19 Abs Basophils (Manual) 0.0 10^3/uL (0.0-0.2) 10/19/19 18:19 Toxic Granulation 1+ 10/19/19 09:30 Platelet Comment ADEQUATE 10/19/19 18:19 Poikilocytosis SLIGHT 10/19/19 09:30 Anisocytosis SLIGHT 10/19/19 18:19 Macrocytosis SLIGHT 10/19/19 09:30 Ovalocytes SLIGHT 10/19/19 09:30 PT 13.2 SEC (11.4-15.4) 10/19/19 16:14 INR 1.00 10/19/19 16:14 APTT 32.3 SEC (23.5-35.8) 10/19/19 16:14 Sodium 130.5 mmol/L (137-145) L 10/22/19 05:50 Potassium 3.0 mmol/L (3.6-5.0) L* 10/22/19 05:50 Chloride 99 mmol/L (98-107) 10/22/19 05:50 Carbon Dioxide 20 mmol/L (22-30) L 10/22/19 05:50 Anion Gap 12 (5-19) 10/22/19 05:50 BUN 4 mg/dL (7-20) L 10/22/19 05:50 Creatinine 0.70 mg/dL (0.52-1.25) 10/22/19 05:50 Est GFR ( Amer) > 60 (>60) 10/22/19 05:50 Est GFR (Non-Af Amer) Cancelled 10/19/19 09:30 Est GFR (MDRD) Non-Af > 60 (>60) 10/22/19 05:50 Glucose 98 mg/dL (75-110) 10/22/19 05:50 POC Glucose 148 mg/dL (70-110) H 10/19/19 12:54 Calcium 7.9 mg/dL (8.4-10.2) L 10/22/19 05:50 Phosphorus 3.0 mg/dL (2.5-4.5) 10/20/19 03:02 Magnesium 1.3 mg/dL (1.6-2.3) L 10/22/19 05:50 Total Bilirubin 0.8 mg/dL (0.2-1.3) 10/19/19 01:32 Direct Bilirubin 0.6 mg/dL (0.0-0.4) H 10/19/19 01:32 Neonat Total Bilirubin Not Reportable 10/19/19 01:32 Neonat Direct Bilirubin Not Reportable 10/19/19 01:32 Neonat Indirect Bili Not Reportable 10/19/19 01:32 AST 47 U/L (14-36) H 10/19/19 01:32 ALT 24 U/L (<35) 10/19/19 01:32 Alkaline Phosphatase 174 U/L (38-126) H 10/19/19 01:32 Total Protein 5.2 g/dL (6.3-8.2) L 10/19/19 01:32 Albumin 2.7 g/dL (3.5-5.0) L 10/19/19 01:32 Lipase 112.3 U/L (23-300) 10/19/19 01:32 EGFR Cancelled 10/19/19 09:30 Urine Color YELLOW 10/19/19 06:40 Urine Appearance SLIGHTLY-CLOUDY 10/19/19 06:40 Urine pH 6.0 (5.0-9.0) 10/19/19 06:40 Ur Specific [place] 1.030 10/19/19 06:40 Urine Protein NEGATIVE mg/dL (NEGATIVE) 10/19/19 06:40 Urine Glucose (UA) NEGATIVE mg/dL (NEGATIVE) 10/19/19 06:40 Urine Ketones NEGATIVE mg/dL (NEGATIVE) 10/19/19 06:40 Urine Blood NEGATIVE (NEGATIVE) 10/19/19 06:40 Urine Nitrite POSITIVE (NEGATIVE) H 10/19/19 06:40 Urine Bilirubin NEGATIVE (NEGATIVE) 10/19/19 06:40 Urine Urobilinogen NEGATIVE mg/dL (<2.0) 10/19/19 06:40 Ur Leukocyte Esterase LARGE (NEGATIVE) H 10/19/19 06:40 Urine WBC (Auto) 123 /HPF 10/19/19 06:40 Urine RBC (Auto) 2 /HPF 10/19/19 06:40 Urine Ascorbic Acid NEGATIVE (NEGATIVE) 10/19/19 06:40 POC Stool Occult Blood POSITIVE (NEGATIVE) 10/19/19 05:55 Blood Type A POSITIVE 10/19/19 09:30 Blood Type Confirm A POSITIVE 10/19/19 10:35 Antibody Screen NEGATIVE 10/19/19 09:30 Crossmatch See Detail 10/19/19 09:30 Impressions: Abdomen/Pelvis CT 10/19/19 04:51 IMPRESSION: 1. No acute inflammatory or obstructive process identified. 2. Hepatic steatosis. 3. Diverticulosis without evidence of acute diverticulitis. This exam was performed according to our departmental dose-optimization program, which includes automated exposure control, adjustment of the mA and/or kV according to patient size and/or use of iterative reconstruction technique. Plan Time Spent: Greater than 30 Minutes Stroke Is this a Stroke Patient?: No Acute Heart Failure - Is this a Heart Failure Patient?: No
[2019-10-22] MEDS ORDERED: FUROSEMIDE INJ/PF 40 MG/4 ML SDV IV SCH (10:00)
[2019-10-22] MEDS: CEFTRIAXONE 1 GM/D5W RTU 1 GM/50 ML RTUPB IV SCH (14:24)
[2019-10-22 16:13] VITALS: BP 130/99
== END 2019-10-22 16:25 | disposition home or self-care (01) | DRG 378 ==
LOC: ER 22:37 → EH 10-19 08:19 → 3S 10-19 13:18
PROVIDERS: ADMIT Internal Medicine; ATTEND Internal Medicine
PROC: 30233N1 Transfusion of Nonautologous Red Blood Cells into Peripheral Vein, Percutaneous Approach (ICD-10-PCS; principal; 2019-10-19)
PROC: 0W3P8ZZ Control Bleeding in Gastrointestinal Tract, Via Natural or Artificial Opening Endoscopic (ICD-10-PCS; 2019-10-20)
PROC: 0DD98ZX Extraction of Duodenum, Via Natural or Artificial Opening Endoscopic, Diagnostic (ICD-10-PCS; 2019-10-20 18:00)
PROC: 0DJD8ZZ Inspection of Lower Intestinal Tract, Via Natural or Artificial Opening Endoscopic (ICD-10-PCS; 2019-10-20 18:00)
DX: K26.4 Chronic or unspecified duodenal ulcer with hemorrhage (principal); N39.0 Urinary tract infection, site not specified; L03.115 Cellulitis of right lower limb; K92.1 Melena; K44.9 Diaphragmatic hernia without obstruction or gangrene; D64.9 Anemia, unspecified; K21.0 Gastro-esophageal reflux disease with esophagitis; E87.6 Hypokalemia; E83.42 Hypomagnesemia; M32.9 Systemic lupus erythematosus, unspecified; I10 Essential (primary) hypertension; M19.90 Unspecified osteoarthritis, unspecified site; Z79.82 Long term (current) use of aspirin; Z79.52 Long term (current) use of systemic steroids; Z79.899 Other long term (current) drug therapy
CPT/HCPCS: 36415; 36430; 43239; 43255; 74177; 80048; 80053; 81001; 813; 82962; 83690; 83735; 84100; 85025; 85027; 85610; 85730; 86850; 86900; 86901; 86920; 87040; 88305; 96365; 96366; 96375; 99285; C9113; G0104; J0131; J0610; J0696; J1940; J2250; J2354; J2405; J2704; J2765; J3010; J3475; J3480; J3490; J7030; J7040; J7050; J7060; P9016

== ENCOUNTER 2019-10-23 08:09 | Emergency (ER) | payer BC ==
--- NOTE | 2019-10-23 10:44 | ER Document Report ---
ED GI/ - General Chief Complaint: Nausea Stated Complaint: NAUSEA Time Seen by Provider: 10/23/19 09:53 Primary Care Provider: LILLIANA MEJIA MD [Primary Care Provider] - Follow up as needed Information source: Patient Notes: Ms. Washington is a 54-year-old female with past medical history of SLE, hypertension, GERD, recently discharged from the hospital after having a GI bleed, endoscopy and colonoscopy where bleeding regions were cauterized presenting to the ED for nausea and worsening wounds to her lower extremity. Patient states that the nausea has been ongoing for the past day or 2 however she has also not been eating or drinking much. Patient states that she is scared to be home after having the serious GI bleed. Patient denies any lightheadedness, chest pain or shortness of breath. She denies any dyspnea upon exertion. She denies any significant abdominal pain but does endorse 2 episodes of diarrhea which was nonbloody and non-melanotic. Patient states that she has chronic wounds on her lower extremities which she is followed by the wound care clinic. She noted that her skin was more erythematous today and tender to palpation. She feels as if her left lower extremity edema has worsened. He denies any fevers or chills. TRAVEL OUTSIDE OF THE [place] IN LAST 30 DAYS: No - Related Data Allergies/Adverse Reactions: codeine Adverse Reaction (Verified 10/23/19 08:56) Nausea Sulfa (Sulfonamide Antibiotics) Adverse Reaction (Verified 10/23/19 08:56) Nausea Past Medical History - Social History Smoking Status: Never Smoker Chew tobacco use (# tins/day): No Frequency of alcohol use: None Drug Abuse: None Family History: Reviewed & Not Pertinent Patient has suicidal ideation: No Patient has homicidal ideation: No - Past Medical History Cardiac Medical History: Reports: Hx Hypertension Denies: Hx Coronary Artery Disease, Hx Heart Attack Pulmonary Medical History: Denies: Hx Asthma, Hx Bronchitis, Hx COPD, Hx Pneumonia Neurological Medical History: Denies: Hx Cerebrovascular Accident, Hx Seizures Renal/ Medical History: Denies: Hx Peritoneal Dialysis Musculoskeletal Medical History: Reports Hx Arthritis - LUPUS Past Surgical History: Reports: Hx Breast Surgery - BREAST REDUCTION, Hx Section, Hx Hysterectomy, Hx Orthopedic Surgery - TENDON REPAIR RIGHT WRIST - Immunizations Hx Diphtheria, Pertussis, Tetanus Vaccination: Yes Review of Systems - Review of Systems Constitutional: See HPI EENT: No symptoms reported Cardiovascular: No symptoms reported Respiratory: No symptoms reported Gastrointestinal: No symptoms reported Genitourinary: No symptoms reported Female Genitourinary: No symptoms reported Musculoskeletal: No symptoms reported Skin: See HPI Hematologic/Lymphatic: No symptoms reported Neurological/Psychological: No symptoms reported Physical Exam - Vital signs Vitals: Temp Pulse Resp BP Pulse Ox 98.4 F 109 H 18 135/78 H 100 10/23/19 08:26 10/23/19 08:26 10/23/19 08:26 10/23/19 08:26 10/23/19 08:26 Interpretation: Tachycardic - General General appearance: Appears well, Alert - HEENT Head: Normocephalic, Atraumatic Eyes: Normal Pupils: PERRL - Respiratory Respiratory status: No respiratory distress Chest status: Nontender Breath sounds: Normal Chest palpation: Normal - Cardiovascular Rhythm: Regular Heart sounds: Normal auscultation Murmur: No - Abdominal Inspection: Normal Distension: No distension Bowel sounds: Normal Tenderness: Nontender Organomegaly: No organomegaly - Back Back: Normal, Nontender - Extremities General upper extremity: Normal inspection, Nontender, Normal color, Normal ROM, Normal temperature General lower extremity: Normal inspection, Nontender, Normal color, Normal ROM, Normal temperature, Normal weight bearing. No: Cindy's sign - Neurological Neuro grossly intact: Yes Cognition: Normal Orientation: AAOx4 [place] Coma Scale Eye Opening: Spontaneous [place] Coma Scale Verbal: Oriented Glenn Coma Scale Motor: Obeys Commands Glenn Coma Scale Total: 15 Speech: Normal Motor strength normal: LUE, RUE, LLE, RLE Sensory: Normal - Psychological Associated symptoms: Normal affect, Normal mood - Skin Skin Temperature: Warm Skin Moisture: Dry Skin Color: Normal Skin irregularity: Lesion - 2 superficial ulcerations to the right anterior leg as well as 2 superficial ulcerations to the left anterior barajas. Surrounding erythema, tenderness or warmth. [place]. Irregularity with: Swelling - S1 pitting edema to bilateral lower extremities. Course - Re-evaluation Re-evalutation: Patient is generally well-appearing and nontoxic. Initial vitals notable for tachycardia. Differential diagnosis includes lupus flare, chronic wounds, dehydration, electrolyte abnormality, cellulitis 10/23/19 10:30 Attempted to evaluate the patient and she stated that she needed to see the nurse first as she had had an accident upon herself and needed her diaper to be changed. She was also actively speaking on the phone with her brother and stated "I need a minute". 10/23/19 13:37 CBC does not show significant leukocytosis or left shift. H&H is low at 8.3/24.3 however this is improved from prior. CMP notable for hypokalemia as well as hypomagnesemia. Both of which were repleted. 10/23/19 13:38 Sickle examination is not consistent with cellulitis. There is evidence of chronic wounds, likely related to patient's known lupus. She states these wounds are chronic for her and she has had a numerous times in the past related to her lupus. Patient actively being seen by wound care. Will administer a dose of steroids here in ED and discharged with a Medrol Dosepak. Both myself and the nurse discussed good nutrition at length with the patient including foods high in potassium and magnesium. Patient recommended to stay well-hydrated and drink plenty fluids. Patient given return precautions. - Vital Signs Vital signs: Temp Pulse Resp BP Pulse Ox 98.2 F 88 16 135/82 H 98 10/23/19 13:27 10/23/19 13:27 10/23/19 13:27 10/23/19 13:27 10/23/19 13:27 - Laboratory Result Diagrams: 10/23/19 11:20 10/23/19 11:20 Laboratory results interpreted by me: 10/23/19 10/23/19 11:20 11:20 RBC 2.56 L Hgb 8.3 L Hct 24.3 L RDW 16.2 H Seg Neuts % (Manual) 89 H Band Neutrophils % 1 L Lymphocytes % (Manual) 2 L Abs Lymphs (Manual) 0.1 L Sodium 131.9 L Potassium 3.0 L* Chloride 96 L BUN 3 L Calcium 8.2 L Magnesium 1.5 L AST 45 H Alkaline Phosphatase 147 H Total Protein 5.0 L Albumin 2.5 L Discharge - Discharge Clinical Impression: Hypokalemia, Hypomagnesemia Lupus (systemic lupus erythematosus) Qualifiers: Systemic lupus erythematosus type: unspecified Systemic lupus erythematosus organ involvement: unspecified Qualified Code(s): M32.9 - Systemic lupus erythematosus, unspecified Condition: Good Disposition: HOME, SELF-CARE Instructions: Potassium ([facility]) Additional Instructions: I have provided you with a list of foods high in potassium. I would recommend that you also look up foods high in magnesium and encourage you to eat a well- balanced diet. You are going to take the Medrol Dosepak as instructed on the box. If you notice signs of infection such as pus of your wounds, develop a fever, or any other concerning symptoms, return to the ED for further evaluation . Otherwise follow-up with your primary care doctor. Prescriptions: Methylprednisolone [Medrol Dosepack (4 mg/Tab) 21 Tab/Dosepak] 4 mg PO ASDIR PRN #21 [email or web address] PRN Reason: Referrals: LILLIANA MEJIA MD [Primary Care Provider] - Follow up as needed
[2019-10-23] MEDS ORDERED: METHYLPREDNISOLONE INJ 125 MG/2 ML SDV IV ONE (11:01)
[2019-10-23] MEDS ORDERED: ONDANSETRON HCL INJ/PF 4 MG/2 ML SDV IV ONE (11:01)
[2019-10-23 11:45] LABS: HEMATOCRIT 24.3 % (36.0-47.0); HEMOGLOBIN 8.3 g/dL (12.0-15.5); MEAN CORPUSCULAR HEMOGLOBIN 32.4 pg (27.0-33.4); MEAN CORPUSCULAR HGB CONC 34.2 g/dL (32.0-36.0); MEAN CORPUSCULAR VOLUME 95 fl (80-97); PLATELET COUNT 296 10^3/uL (150-450); RED BLOOD COUNT 2.56 10^6/uL (3.72-5.28); RED CELL DISTRIBUTION WIDTH 16.2 % (11.5-14.0); WHITE BLOOD COUNT 6.8 10^3/uL (4.0-10.5)
[2019-10-23 11:57] LABS: ALBUMIN 2.5 g/dL (3.5-5.0); ALKALINE PHOSPHATASE 147 U/L (38-126); ANION GAP 13 (5-19); ASPARTATE AMINO TRANSFERASE 45 U/L (14-36); BILIRUBIN,DIRECT 0.4 mg/dL (0.0-0.4); BILIRUBIN,TOTAL 0.7 mg/dL (0.2-1.3); BLOOD UREA NITROGEN 3 mg/dL (7-20); CALCIUM 8.2 mg/dL (8.4-10.2); CARBON DIOXIDE 23 mmol/L (22-30); CHLORIDE 96 mmol/L (98-107); GLUCOSE 85 mg/dL (75-110)
[2019-10-23] MEDS ORDERED: POTASSIUM CHLORIDE 10 MEQ TABLET.ER PO ONE (12:00)
[2019-10-23 12:07] LABS: ABSOLUTE LYMPHOCYTES# (MANUAL) 0.1 10^3/uL (0.5-4.7); ABSOLUTE MONOCYTES # (MANUAL) 0.5 10^3/uL (0.1-1.4); BAND NEUTROPHILS % (MANUAL) 1 % (3-5); BASOPHILS % (MANUAL) 1 % (0-2); EOSINOPHILS % (MANUAL) 0 % (0-6); LYMPHOCYTES % (MANUAL) 2 % (13-45); MONOCYTES % (MANUAL) 7 % (3-13); SEGMENTED NEUTROPHILS % (MAN) 89 % (42-78); TOTAL CELLS COUNTED 100
[2019-10-23 12:10] LABS: APPEARANCE,URINE CLEAR; BILIRUBIN,URINE NEGATIVE (NEGATIVE); COLOR,URINE STRAW; GLUCOSE, URINE NEGATIVE (NEGATIVE); KETONES,URINE NEGATIVE (NEGATIVE); LEUKOCYTE ESTERASE,URINE NEGATIVE (NEGATIVE); NITRITE,URINE NEGATIVE (NEGATIVE); PROTEIN,URINE NEGATIVE (NEGATIVE); URINE SPECIFIC GRAVITY 1.004; UROBILINOGEN,URINE NEGATIVE mg/dL (<2.0)
[2019-10-23 12:10] LABS: ANISOCYTOSIS 1+; OVALOCYTES SLIGHT; PLATELET COMMENT ADEQUATE; POIKILOCYTOSIS SLIGHT; TOXIC VACUOLATION PRESENT
[2019-10-23] MEDS ORDERED: MAGNESIUM OXIDE 400 MG TABLET PO ONE (13:28)
[2019-10-23 13:30] VITALS: BP 135/82
== END 2019-10-23 14:18 | disposition home or self-care (01) ==
LOC: ER 08:09
DX: E87.6 Hypokalemia (principal); E83.42 Hypomagnesemia; M32.9 Systemic lupus erythematosus, unspecified; L97.229 Non-pressure chronic ulcer of left calf with unspecified severity; L97.919 Non-pressure chronic ulcer of unspecified part of right lower leg with unspecified severity; R60.0 Localized edema; R11.0 Nausea; R00.0 Tachycardia, unspecified; R19.7 Diarrhea, unspecified; I10 Essential (primary) hypertension; Z87.19 Personal history of other diseases of the digestive system; Z98.890 Other specified postprocedural states
CPT/HCPCS: 36415; 83690; 83735; 85025; 80053; 81001; J2930; J2405; 96374; 96375; 99283

== ENCOUNTER 2019-11-14 20:46 | Emergency (ER) | payer BC ==
[2019-11-14] MEDS ORDERED: ONDANSETRON HCL INJ/PF 4 MG/2 ML SDV IV ONE (21:04)
[2019-11-14] MEDS ORDERED: MORPHINE SULFATE 10 MG/ML INJ IV ONE (21:04)
--- NOTE | 2019-11-14 21:21 | ER Document Report ---
ED Extremity Problem, Lower - General Chief Complaint: Leg Swelling Stated Complaint: LEG SWELLING/PAIN Time Seen by Provider: 11/14/19 20:57 Primary Care Provider: LILLIANA MEJIA MD [Primary Care Provider] - Follow up as needed Notes: Patient is a 54-year-old female that comes emergency department for chief comp laint of pain and swelling in both her legs. She has known hematomas, multiple open wounds that are healing very slowly that she sees the wound clinic for (2 on her right leg anteriorly, one on her left lower leg anteriorly). She states that over the past few days the swelling in her legs has increased, she has an appointment scheduled for ultrasounds but this is in several days. She denies fever/chills, recent injury to the already present hematomas that have been there for several weeks. She denies nausea or vomiting, shortness of breath, chest pain, or any other complaints at this time. She states she takes Percocet and Motrin for pain but at times this is not enough. Past medical history of lupus on infusions, lymphedema on Lasix, and hypertension. She denies history of diabetes, denies history of blood clots, denies smoking. TRAVEL OUTSIDE OF THE [place] IN LAST 30 DAYS: No - Related Data Allergies/Adverse Reactions: codeine Adverse Reaction (Verified 10/23/19 08:56) Nausea Sulfa (Sulfonamide Antibiotics) Adverse Reaction (Verified 10/23/19 08:56) Nausea Past Medical History - General Information source: Patient - Social History Smoking Status: Never Smoker Frequency of alcohol use: None Drug Abuse: None Lives with: Family Family History: Reviewed & Not Pertinent Patient has suicidal ideation: No Patient has homicidal ideation: No - Past Medical History Cardiac Medical History: Reports: Hx Hypertension Denies: Hx Coronary Artery Disease, Hx Heart Attack Pulmonary Medical History: Denies: Hx Asthma, Hx Bronchitis, Hx COPD, Hx Pneumonia Neurological Medical History: Denies: Hx Cerebrovascular Accident, Hx Seizures Renal/ Medical History: Denies: Hx Peritoneal Dialysis Musculoskeletal Medical History: Reports Hx Arthritis - LUPUS Past Surgical History: Reports: Hx Breast Surgery - BREAST REDUCTION, Hx Section, Hx Hysterectomy, Hx Orthopedic Surgery - TENDON REPAIR RIGHT WRIST - Immunizations Hx Diphtheria, Pertussis, Tetanus Vaccination: Yes Review of Systems - Review of Systems Constitutional: No symptoms reported EENT: No symptoms reported Cardiovascular: No symptoms reported Respiratory: No symptoms reported Gastrointestinal: No symptoms reported Genitourinary: No symptoms reported Female Genitourinary: No symptoms reported Musculoskeletal: See HPI Skin: See HPI Hematologic/Lymphatic: No symptoms reported Neurological/Psychological: No symptoms reported Physical Exam - Vital signs Vitals: Temp Resp BP Pulse Ox 98.8 F 18 104/73 100 11/14/19 21:01 11/14/19 21:01 11/14/19 21:01 11/14/19 21:01 - Notes Notes: GENERAL: Alert, interacts well. HEAD: Normocephalic, atraumatic. EYES: Pupils equal, round, and reactive to light. Extraocular movements intact. ENT: Oral mucosa moist, tongue midline. Oropharynx unremarkable. Airway patent. NECK: Full range of motion. Supple. Trachea midline. LUNGS: Clear to auscultation bilaterally, no wheezes, rales, or rhonchi. No respiratory distress. HEART: Regular rate and rhythm. No murmur ABDOMEN: Soft, non-tender. Non-distended. Bowel sounds present in all 4 quadrants. GENITOURINARY: Deferred EXTREMITIES: 1+ bilateral lower extremity edema, normal distal neurovascular exam. Large hematoma over the left mid medial anterior leg, smaller one over the left proximal tibial area. Open wounds over the anterior lower extremities bilaterally without induration, fluctuance, discolored discharge, foul smell, or significant tenderness. Unremarkable otherwise. BACK: no cervical, thoracic, lumbar midline tenderness. No saddle anesthesia, normal distal neurovascular exam. Moves all extremities in full range of motion. NEUROLOGICAL: Alert and oriented x3. Normal speech. Cranial nerves II through XII grossly intact. PSYCH: Slightly restless but still appropriate and interactive SKIN: Warm, dry, normal turgor. No rashes or lesions noted. Course - Re-evaluation Re-evalutation: Patient with chronic lower extremity hematomas, borderline lower extremity edema bilaterally, 3 open wounds of the lower extremities. Open wounds are not draining any purulent material, actually appear to be healing, there is no surrounding erythema, significant tenderness, or foul smell. Patient also has chronic pain in regards to these. Dopplers performed and are negative for DVTs. CBC unremarkable with anemia but no significant change from prior, chemistry sh ows acute renal insufficiency with creatinine greater than 2.2, BUN is also elevated indicating uremia. Bicarbonate is also low at 13. Patient states she recently had her diuretics increased, I suspect she was over diuresed. Initially given 500 cc bolus of fluids. I discussed patient with Dr. Whitaker. He recommends she receive additional IV fluid bolus of 500 cc, be provided with copy of her labs, hold some of her diuretics over the next 2 days, and have her have a close recheck with her primary care provider. She is to return for any signs of infection or any other concerning or worsening symptoms. She is following closely with wound care. I did discuss this with patient at length, she states understanding and agreement with plan. There was a long delay in patient obtaining a ride home, therefore chemistry was repeated and shows significantly improved renal functioning, improved bicarbonate, unfortunately calcium is low but this was by volume. - Vital Signs Vital signs: Temp Pulse Resp BP Pulse Ox 98.8 F 12 94/55 L 100 11/14/19 21:01 11/15/19 06:01 11/15/19 06:00 11/15/19 06:01 - Laboratory Result Diagrams: 11/14/19 21:36 11/15/19 03:33 Laboratory results interpreted by me: 11/14/19 11/14/19 11/14/19 21:30 21:36 21:36 RBC 2.58 L Hgb 8.5 L Hct 26.0 L MCV 101 H D RDW 18.1 H Seg Neuts % (Manual) 94 H Lymphocytes % (Manual) 2 L Abs Neuts (Manual) 8.6 H Abs Lymphs (Manual) 0.2 L Sodium 128.2 L Chloride 96 L Carbon Dioxide 13 L BUN 41 H Creatinine 2.20 H Est GFR ( Amer) 28 L Est GFR (MDRD) Non-Af 23 L Glucose Calcium 7.6 L Ur Leukocyte Esterase TRACE H 11/15/19 03:33 RBC Hgb Hct MCV RDW Seg Neuts % (Manual) Lymphocytes % (Manual) Abs Neuts (Manual) Abs Lymphs (Manual) Sodium 130.8 L Chloride Carbon Dioxide 17 L BUN 37 H Creatinine 1.87 H Est GFR ( Amer) 34 L Est GFR (MDRD) Non-Af 28 L Glucose 67 L Calcium 6.9 L* Ur Leukocyte Esterase Discharge - Discharge Clinical Impression: Acute renal insufficiency Lower extremity pain Qualifiers: Laterality: bilateral Qualified Code(s): M79.604 - Pain in right leg Condition: Stable Disposition: HOME, SELF-CARE Additional Instructions: Your Doppler ultrasounds of the legs are negative for clots. Your wounds do not appear to be infected at this time. Your work-up does indicate acute renal insufficiency and dehydration. You appear to have too much diuresis at this time. You have begun treatment for this here. I recommend that you only take 20 mg of Lasix daily for the next 2 days and then have your renal functioning rechecked with Dr. Mejia. Please call them tomorrow to set up close follow-up. Bring your laboratory chemistry report with you. Return if you worsen including developing or spreading redness, discolored discharge, severe worsening swelling of the legs, difficulty breathing, fever, inability to urinate, or any other concerning or worsening symptoms. Referrals: LILLIANA MEJIA MD [Primary Care Provider] - Follow up as needed
[2019-11-14 21:51] LABS: HEMOGLOBIN 8.5 g/dL (12.0-15.5); MEAN CORPUSCULAR HGB CONC 32.7 g/dL (32.0-36.0); PLATELET COUNT 385 10^3/uL (150-450); RED BLOOD COUNT 2.58 10^6/uL (3.72-5.28); RED CELL DISTRIBUTION WIDTH 18.1 % (11.5-14.0); WHITE BLOOD COUNT 9.1 10^3/uL (4.0-10.5)
[2019-11-14 22:00] LABS: MEAN CORPUSCULAR VOLUME 101 fl (80-97)
[2019-11-14 22:00] LABS: APPEARANCE,URINE CLEAR; BILIRUBIN,URINE NEGATIVE (NEGATIVE); COLOR,URINE YELLOW; GLUCOSE, URINE NEGATIVE (NEGATIVE); KETONES,URINE NEGATIVE (NEGATIVE); LEUKOCYTE ESTERASE,URINE TRACE (NEGATIVE); NITRITE,URINE NEGATIVE (NEGATIVE); PROTEIN,URINE NEGATIVE (NEGATIVE); URINE SPECIFIC GRAVITY 1.012; UROBILINOGEN,URINE NEGATIVE mg/dL (<2.0)
[2019-11-14] MEDS ORDERED: HYDROMORPHONE HCL INJ/PF 2 MG/ML AMPULE IV ONE (22:15)
[2019-11-14 22:18] LABS: ANION GAP 19 (5-19); BLOOD UREA NITROGEN 41 mg/dL (7-20); CALCIUM 7.6 mg/dL (8.4-10.2); CARBON DIOXIDE 13 mmol/L (22-30); CHLORIDE 96 mmol/L (98-107); GLUCOSE 84 mg/dL (75-110); POTASSIUM 4.5 mmol/L (3.6-5.0)
[2019-11-14 22:21] LABS: ABSOLUTE LYMPHOCYTES# (MANUAL) 0.2 10^3/uL (0.5-4.7); ABSOLUTE MONOCYTES # (MANUAL) 0.4 10^3/uL (0.1-1.4); BASOPHILS % (MANUAL) 0 % (0-2); EOSINOPHILS % (MANUAL) 0 % (0-6); LYMPHOCYTES % (MANUAL) 2 % (13-45); MONOCYTES % (MANUAL) 4 % (3-13); SEGMENTED NEUTROPHILS % (MAN) 94 % (42-78); TOTAL CELLS COUNTED 100
[2019-11-14 22:23] LABS: ANISOCYTOSIS 2+
[2019-11-14 22:24] LABS: PLATELET COMMENT ADEQUATE
[2019-11-14] MEDS ORDERED: NORMAL SALINE 500 ML IV ONE ×2 (22:28→23:12)
[2019-11-14] MEDS ORDERED: FENTANYL CITRATE INJ/PF 100 MCG/2 ML AMPUL IV ONE (23:50)
[2019-11-15] MEDS ORDERED: FENTANYL CITRATE INJ/PF 100 MCG/2 ML AMPUL IV ONE ×2 (03:06→06:59)
[2019-11-15 04:03] LABS: ANION GAP 13 (5-19); BLOOD UREA NITROGEN 37 mg/dL (7-20); CARBON DIOXIDE 17 mmol/L (22-30); CHLORIDE 101 mmol/L (98-107); POTASSIUM 3.6 mmol/L (3.6-5.0)
[2019-11-15 04:06] LABS: CALCIUM 6.9 mg/dL (8.4-10.2); GLUCOSE 67 mg/dL (75-110)
--- NOTE | 2019-11-15 08:49 | XCELERA REPORT ---
[address] [id number] Lower Extremity Venous Evaluation Procedure: Color flow and duplex imaging bilaterally of the veins of the lower extremities as well as the Common Femoral veins. Right Sided Venous Evaluation Lucent,spaces in subcutaneous tissues of the leg, suggesting edema, noted. Normal vessel filling wall to wall, compression and augmentation as well as Colour flow down to the infrageniculate veins. Left Sided Venous Evaluation Lucent,spaces in subcutaneous tissues of the leg, suggesting edema, noted. Normal vessel filling wall to wall, compression and augmentation as well as Colour flow down to the infrageniculate veins. Interpretation Summary No duplex evidence of DVT or obstruction in the bilateral lower extremities. Quite dramatic subcutaneous edema in legs, bilaterally. Name: AGUSTIN ORTEGA Age: 54 yrs Gender: Female : 1965 Patient Status: Emergency Patient Location: ER Study Date: 11/14/2019 09:50 PM Reason For Study: immobility, bilateral LE swelling, autoimmune dz Ordering Physician: DAREN DELGADO Performed By: Rosi Franks : DAREN DELGADO > Kj Pollard
[2019-11-15 09:51] VITALS: BP 103/63
== END 2019-11-15 09:51 | disposition home or self-care (01) ==
LOC: ER 20:46
DX: S81.801A Unspecified open wound, right lower leg, initial encounter (principal); S81.802A Unspecified open wound, left lower leg, initial encounter; X58.XXXA Exposure to other specified factors, initial encounter; N28.9 Disorder of kidney and ureter, unspecified; I89.0 Lymphedema, not elsewhere classified; M79.604 Pain in right leg; M79.605 Pain in left leg; Z79.899 Other long term (current) drug therapy; I10 Essential (primary) hypertension
CPT/HCPCS: 96376; 99284; 96361; 96374; 96375; 36415; 82962; 85025; 80048; 81001; 93970 ×2; J3010 ×2; J2270; J1170; J2405; J7040

== ENCOUNTER 2019-11-15 15:46 | Emergency (ER) | payer BC ==
--- NOTE | 2019-11-15 16:27 | ER Document Report ---
ED Medical Screen (RME) - General Chief Complaint: Leg Injury Stated Complaint: LEFT KELLY LACERATION Time Seen by Provider: 11/15/19 16:24 Primary Care Provider: LILLIANA MEJIA MD [Primary Care Provider] - Follow up as needed Mode of Arrival: Wheelchair Information source: Patient Notes: 54-year-old female presents to ED for fall today. She states she is here due to fall with bruises on her legs and she has lost track of time so she is not sure when she fell or why she fell. She does have very low blood pressures at this time of 84/51. She does have a large bruise and swelling to her left lower leg. She states she was here either yesterday or the day before for fall and that is when she hit her head and is the reason she has bruises on her head neck. She states she got the laceration today from catching it on the walker. I have greeted and performed a rapid initial assessment of this patient. A comprehensive ED assessment and evaluation of the patient, analysis of test results and completion of medical decision making process will be conducted by an additional ED providers. TRAVEL OUTSIDE OF THE [place] IN LAST 30 DAYS: No - Related Data Allergies/Adverse Reactions: codeine Adverse Reaction (Verified 11/15/19 15:55) Nausea Sulfa (Sulfonamide Antibiotics) Adverse Reaction (Verified 11/15/19 15:55) Nausea Past Medical History - Past Medical History Cardiac Medical History: Reports: Hx Hypertension Denies: Hx Coronary Artery Disease, Hx Heart Attack Pulmonary Medical History: Denies: Hx Asthma, Hx Bronchitis, Hx COPD, Hx Pneumonia Neurological Medical History: Denies: Hx Cerebrovascular Accident, Hx Seizures Renal/ Medical History: Denies: Hx Peritoneal Dialysis Musculoskeltal Medical History: Reports Hx Arthritis - LUPUS Past Surgical History: Reports: Hx Breast Surgery - BREAST REDUCTION, Hx Section, Hx Hysterectomy, Hx Orthopedic Surgery - TENDON REPAIR RIGHT WRIST - Immunizations Hx Diphtheria, Pertussis, Tetanus Vaccination: Yes Physical Exam - Vital signs Vitals: Temp Pulse Resp BP Pulse Ox 97.6 F 88 12 84/51 L 100 11/15/19 16:17 11/15/19 16:17 11/15/19 16:17 11/15/19 16:17 11/15/19 16:17 Course - Vital Signs Vital signs: Temp Pulse Resp BP Pulse Ox 97.6 F 88 12 84/51 L 100 11/15/19 16:17 11/15/19 16:17 11/15/19 16:17 11/15/19 16:17 11/15/19 16:17 - Laboratory Result Diagrams: 11/15/19 17:53 11/15/19 17:53 Laboratory results interpreted by me: 11/15/19 11/15/19 11/15/19 17:53 17:53 18:53 RBC 2.26 L Hgb 7.6 L Hct 21.8 L RDW 17.4 H Seg Neuts % (Manual) 95 H Lymphocytes % (Manual) 1 L Abs Lymphs (Manual) 0.1 L VBG pCO2 VBG HCO3 Sodium 127.4 L Chloride 95 L Carbon Dioxide 20 L BUN 37 H Creatinine 1.70 H Est GFR ( Amer) 38 L Est GFR (MDRD) Non-Af 31 L Glucose 65 L Calcium 7.4 L Total Bilirubin 1.5 H Direct Bilirubin 1.1 H AST 92 H Alkaline Phosphatase 190 H Total Protein 5.5 L Albumin 2.8 L Leukocyte Esterase Rfl TRACE H 11/15/19 20:20 RBC Hgb Hct RDW Seg Neuts % (Manual) Lymphocytes % (Manual) Abs Lymphs (Manual) VBG pCO2 33.8 L VBG HCO3 18.8 L Sodium Chloride Carbon Dioxide BUN Creatinine Est GFR ( Amer) Est GFR (MDRD) Non-Af Glucose Calcium Total Bilirubin Direct Bilirubin AST Alkaline Phosphatase Total Protein Albumin Leukocyte Esterase Rfl Doctor's Discharge - Discharge Referrals: LILLIANA MEJIA MD [Primary Care Provider] - Follow up as needed
--- NOTE | 2019-11-15 17:15 | RADIOLOGY REPORT (SQ) ---
EXAM DESCRIPTION: TIBIA FIBULA LEFT COMPLETED DATE/TIME: 11/15/2019 5:06 pm REASON FOR STUDY: fall COMPARISON: None. NUMBER OF VIEWS: Two views. TECHNIQUE: Two radiographic images acquired of the left tibia and fibula to include the knee and ank le in at least one projection. LIMITATIONS: None. FINDINGS: MINERALIZATION: Normal. BONES: No acute fracture or dislocation. No worrisome bone lesions. SOFT TISSUES: No obvious swelling or foreign body. OTHER: No other significant finding. IMPRESSION: NEGATIVE STUDY OF THE LEFT TIBIA AND FIBULA. NO RADIOGRAPHIC EVIDENCE OF ACUTE INJURY. TECHNICAL DOCUMENTATION: JOB ID: [id number] [employer]- All Rights Reserved Reading location - IP/workstation name: [email or web address]
[2019-11-15 18:22] LABS: HEMATOCRIT 21.8 % (36.0-47.0); MEAN CORPUSCULAR HEMOGLOBIN 33.4 pg (27.0-33.4); MEAN CORPUSCULAR HGB CONC 34.6 g/dL (32.0-36.0); PLATELET COUNT 372 10^3/uL (150-450); RED BLOOD COUNT 2.26 10^6/uL (3.72-5.28); RED CELL DISTRIBUTION WIDTH 17.4 % (11.5-14.0); WHITE BLOOD COUNT 6.3 10^3/uL (4.0-10.5)
[2019-11-15 18:27] LABS: HEMOGLOBIN 7.6 g/dL (12.0-15.5)
[2019-11-15 18:28] LABS: MEAN CORPUSCULAR VOLUME 96 fl (80-97)
[2019-11-15 18:49] LABS: ALBUMIN 2.8 g/dL (3.5-5.0); ALKALINE PHOSPHATASE 190 U/L (38-126); ANION GAP 12 (5-19); ASPARTATE AMINO TRANSFERASE 92 U/L (14-36); BILIRUBIN,DIRECT 1.1 mg/dL (0.0-0.4); BILIRUBIN,TOTAL 1.5 mg/dL (0.2-1.3); BLOOD UREA NITROGEN 37 mg/dL (7-20); CALCIUM 7.4 mg/dL (8.4-10.2); CARBON DIOXIDE 20 mmol/L (22-30); CHLORIDE 95 mmol/L (98-107); POTASSIUM 3.6 mmol/L (3.6-5.0); TOTAL PROTEIN 5.5 g/dL (6.3-8.2)
[2019-11-15 18:57] LABS: GLUCOSE 65 mg/dL (75-110)
[2019-11-15] MEDS ORDERED: PIPERACILLIN/TAZOBACTAM 3.375 GM VIAL IV ONE (18:58)
[2019-11-15] MEDS ORDERED: RINGERS SOLUTION,LACTATED 1,000 ML IV ONE (18:58)
[2019-11-15] MEDS ORDERED: ACETAMINOPHEN 325 MG TABLET PO ONE (19:08)
[2019-11-15 19:10] LABS: ABSOLUTE LYMPHOCYTES# (MANUAL) 0.1 10^3/uL (0.5-4.7); ABSOLUTE MONOCYTES # (MANUAL) 0.2 10^3/uL (0.1-1.4); ANISOCYTOSIS 1+; BASOPHILS % (MANUAL) 0 % (0-2); EOSINOPHILS % (MANUAL) 1 % (0-6); LYMPHOCYTES % (MANUAL) 1 % (13-45); MONOCYTES % (MANUAL) 3 % (3-13); PLATELET COMMENT ADEQUATE; SEGMENTED NEUTROPHILS % (MAN) 95 % (42-78); TOTAL CELLS COUNTED 100
--- NOTE | 2019-11-15 19:14 | ER Document Report ---
ED General - General Mode of Arrival: Wheelchair Information source: Patient TRAVEL OUTSIDE OF THE [place] IN LAST 30 DAYS: No - HPI Onset: This afternoon Onset/Duration: Worse Quality of pain: Achy Pain Level: 4 Associated symptoms: Weakness, Other - Lightheaded. denies: Chest pain, Nonproductive cough, Productive cough, Fever, Nausea, Vomiting Exacerbated by: Movement Relieved by: Denies Similar symptoms previously: Yes Recently seen / treated by doctor: Yes <KRISTINE CARRASCO - Last Filed: 11/15/19 20:26> <DAREN DELGADO - Last Filed: 11/15/19 22:58> - General Chief Complaint: Leg Injury Stated Complaint: LEFT KELLY LACERATION Time Seen by Provider: 11/15/19 16:24 Primary Care Provider: LILLIANA MEJIA MD [Primary Care Provider] - Follow up as needed Notes: Patient states that she has felt lightheaded and generalized weakness. Patient states that she has had bilateral lower extremity swelling for several days. Patient states that she did trip and fall over her walker today causing a laceration to the left lower extremity. Patient also complains of hematomas to bilateral lower extremities. Patient is followed by the wound clinic for some open wounds to her lower leg but developed this new laceration today. Patient denies any fever. Patient also complains of low back pain. (KRISTINE CARRASCO) - Related Data Allergies/Adverse Reactions: codeine Adverse Reaction (Verified 11/15/19 15:55) Nausea Sulfa (Sulfonamide Antibiotics) Adverse Reaction (Verified 11/15/19 15:55) Nausea Past Medical History - General Information source: Patient - Social History Smoking Status: Never Smoker Frequency of alcohol use: None Drug Abuse: None Family History: Reviewed & Not Pertinent Patient has suicidal ideation: No Patient has homicidal ideation: No - Medical History Medical History: Other - Lupus - Past Medical History Cardiac Medical History: Reports: Hx Congestive Heart Failure, Hx Hypertension Denies: Hx Coronary Artery Disease, Hx Heart Attack Neurological Medical History: Denies: Hx Cerebrovascular Accident, Hx Seizures Renal/ Medical History: Denies: Hx Peritoneal Dialysis Musculoskeletal Medical History: Reports Hx Arthritis - LUPUS, Reports Hx Systemic Lupus Erythematosus, Reports Other - Right shoulder chronic dislocation Past Surgical History: Reports: Hx Breast Surgery - BREAST REDUCTION, Hx Section, Hx Hysterectomy, Hx Orthopedic Surgery - TENDON REPAIR RIGHT WRIST - Immunizations Hx Diphtheria, Pertussis, Tetanus Vaccination: Yes <LUNADEMETRIOSIERRAJOANIE - Last Filed: 11/15/19 20:26> Review of Systems - Review of Systems Constitutional: Weakness. denies: Fever EENT: No symptoms reported Cardiovascular: Dizziness, Lightheaded, Edema. denies: Chest pain Respiratory: No symptoms reported. denies: Cough, Short of breath Gastrointestinal: No symptoms reported. denies: Abdominal pain, Vomiting Genitourinary: No symptoms reported Female Genitourinary: No symptoms reported Musculoskeletal: Back pain, Leg swelling, Other - Bilateral lower extremity pain Skin: Other - Erythema to right leg, hematomas to bilateral lower extremities, laceration to bilateral lower extremity Hematologic/Lymphatic: No symptoms reported Neurological/Psychological: No symptoms reported <KRISTINE CARRASCO - Last Filed: 11/15/19 20:26> Physical Exam - General General appearance: Alert In distress: Moderate - HEENT Head: Normocephalic Eyes: Normal Conjunctiva: Normal Nasal: Normal Mouth/Lips: Normal Mucous membranes: Normal Neck: Normal, Supple. No: Lymphadenopathy - Respiratory Respiratory status: No respiratory distress Chest status: Nontender Breath sounds: Normal. No: Rales, Rhonchi, Stridor, Wheezing Chest palpation: Normal - Cardiovascular Rhythm: Regular Heart sounds: S1 appreciated, S2 appreciated Murmur: No - Abdominal Inspection: Morbidly Obese Distension: No distension Tenderness: Nontender - Back Back: Vertebra tenderness - Lower lumbar midline tenderness - Extremities General upper extremity: Normal ROM General lower extremity: Tender - Tenderness to bilateral lower extremities, Other - Patient with laceration to right proximal tibial area, patient with hematoma to middle third of right lower extremity, hematoma to middle third of left lower extremity, patient with laceration to the medial aspect of left ankle. 4+ edema to bilateral feet - Neurological Neuro grossly intact: Yes Cognition: Normal Glenn Coma Scale Eye Opening: Spontaneous Glenn Coma Scale Verbal: Oriented [place] Coma Scale Motor: Obeys Commands Glenn Coma Scale Total: 15 - Psychological Associated symptoms: Normal affect, Normal mood - Skin Skin Temperature: Warm Skin Moisture: Dry Skin Color: Erythema - Right lower extremity Skin irregularity: Laceration - Laceration to the proximal right lower extremity, laceration to the distal third of left lower extremity, no active bleeding <KRISTINE CARRASCO - Last Filed: 11/15/19 20:26> - Vital signs Vitals: Temp Pulse Resp BP Pulse Ox 97.6 F 88 12 84/51 L 100 11/15/19 16:17 11/15/19 16:17 11/15/19 16:17 11/15/19 16:17 11/15/19 16:17 Course - Laboratory Result Diagrams: 11/15/19 17:53 11/15/19 17:53 <KRISTINE CARRASCO - Last Filed: 11/15/19 20:26> - Laboratory Result Diagrams: 11/15/19 17:53 11/15/19 17:53 <DAREN DELGADO - Last Filed: 11/15/19 22:58> - Re-evaluation Re-evalutation: 11/15/19 19:00 Patient hypotensive complaining of low back pain, bilateral lower extremity pain with lacerations to bilateral lower extremities. Consulted Dr. Hughes, Dr. Hughes to bedside for examination. Dr. Hughes advises adding on lactic acid and treating for likely sepsis. Does not recommend any wound closure to lacerations to leg at this time. Advises IV fluid bolus 1 L and starting Zosyn. 11/15/19 20:26 Report and handoff given to DEONDRE Fernando (KRISTINE CARRASCO) 11/15/19 22:55 I had a long conversation with the patient. She has old rib fractures but she cannot even recall when this happened, she denies her ribs hurting at this time. Her hemoglobin is actually at baseline and she has received dilution yesterday and today. Renal functioning is improved, bicarbonate is improved. Patient also tends to have low blood pressure and is approximately baseline. When discussed with patient patient states that she has wound care that she already sees and she will follow them for the new wound, she states that she is expected to go home and is asking when she can leave. I do feel that patient is essentially at her baseline at this time and she can follow-up with her primary care and wound care provider. I did discuss all new results. I also discussed possibility of antibiotics. Patient received Zosyn already here, however patient states she does not want any antibiotics and she does not feel that her wounds are infected. She does have slightly more warmth and erythema to the right leg than yesterday but this is very borderline, nontender, and patient states that this is basically how her legs look on occasion and she feels like this is not infected. She specifically again declines antibiotics. I feel this is appropriate, she has no leukocytosis, fever, or overt infection. She also has good wound care follow-up. Patient states she is going home with her family and she will come back if she worsens. (DAREN DELGADO) - Vital Signs Vital signs: Temp Pulse Resp BP Pulse Ox 97.6 F 88 12 84/51 L 100 11/15/19 16:17 11/15/19 16:17 11/15/19 16:17 11/15/19 16:17 11/15/19 16:17 - Laboratory Laboratory results interpreted by me: 11/15/19 11/15/19 11/15/19 17:53 17:53 18:53 RBC 2.26 L Hgb 7.6 L Hct 21.8 L RDW 17.4 H Seg Neuts % (Manual) 95 H Lymphocytes % (Manual) 1 L Abs Lymphs (Manual) 0.1 L VBG pCO2 VBG HCO3 Sodium 127.4 L Chloride 95 L Carbon Dioxide 20 L BUN 37 H Creatinine 1.70 H Est GFR ( Amer) 38 L Est GFR (MDRD) Non-Af 31 L Glucose 65 L Calcium 7.4 L Total Bilirubin 1.5 H Direct Bilirubin 1.1 H AST 92 H Alkaline Phosphatase 190 H Total Protein 5.5 L Albumin 2.8 L Leukocyte Esterase Rfl TRACE H 11/15/19 20:20 RBC Hgb Hct RDW Seg Neuts % (Manual) Lymphocytes % (Manual) Abs Lymphs (Manual) VBG pCO2 33.8 L VBG HCO3 18.8 L Sodium Chloride Carbon Dioxide BUN Creatinine Est GFR ( Amer) Est GFR (MDRD) Non-Af Glucose Calcium Total Bilirubin Direct Bilirubin AST Alkaline Phosphatase Total Protein Albumin Leukocyte Esterase Rfl Discharge <KRISTINE CARRASCO - Last Filed: 11/15/19 20:26> <DAREN DELGADO - Last Filed: 11/15/19 22:58> - Discharge Clinical Impression: Fall Qualifiers: Encounter type: initial encounter Qualified Code(s): W19.XXXA - Unspecified fall, initial encounter Laceration of left leg Qualifiers: Encounter type: initial encounter Qualified Code(s): S81.812A - Laceration without foreign body, left lower leg, initial encounter Hip pain Qualifiers: Laterality: bilateral Qualified Code(s): M25.551 - Pain in right hip; M25.552 - Pain in left hip Condition: Stable Disposition: HOME, SELF-CARE Additional Instructions: You have old fractures in your front ribs that were seen on the x-ray, no new findings. You have bursitis at the left hip/femur but no new fractures are seen on x-rays. Your kidney functioning is actually significantly improved, your remaining labs do not show any significant changes from before. Please follow-up closely with your technical service specialist for management of your new wound and your old wounds. Keep them clean and watch them closely, if you develop spreading redness, developing pain, change in appearance, fever, nausea or vomiting, or any other concerning symptoms please return to the emergency department immediately. Referrals: LILLIANA MEJIA MD [Primary Care Provider] - Follow up as needed
[2019-11-15 19:43] LABS: APPEARANCE,URINE CLEAR; BILIRUBIN,URINE NEGATIVE (NEGATIVE); COLOR,URINE YELLOW; GLUCOSE, URINE NEGATIVE (NEGATIVE); KETONES,URINE NEGATIVE (NEGATIVE); PROTEIN,URINE NEGATIVE (NEGATIVE); URINE SPECIFIC GRAVITY 1.012; UROBILINOGEN,URINE NEGATIVE mg/dL (<2.0)
[2019-11-15] MEDS ORDERED: OXYCODONE HCL IR 5 MG TABLET PO ONE (19:46)
[2019-11-15 19:50] LABS: INTERNATIONAL RATION (INR) 0.97; PROTHROMBIN TIME 12.9 SEC (11.4-15.4)
[2019-11-15 20:51] LABS: VENOUS BLOOD BASE EXCESS -5.8 mmol/L; VENOUS BLOOD HCO3 18.8 mmol/L (20-32); VENOUS BLOOD PCO2 33.8 mmHg (35-63); VENOUS BLOOD PH 7.36 (7.30-7.42)
--- NOTE | 2019-11-15 21:32 | RADIOLOGY REPORT (SQ) ---
EXAM DESCRIPTION: XR HIP BILATERAL CLINICAL HISTORY: 54 years Female fall, hip pain COMPARISON: None TECHNIQUE: An AP pelvis and bilateral frog leg radiographs of the hips were obtained at 2045 hours on 11/15/2019. FINDINGS: No fracture or subluxation is seen. The pubic symphysis and sacroiliac joints are unremarkable. There are prominent smooth soft tissue calcifications around the left greater trochanter. There is another lateral to the left acetabular roof. IMPRESSION: No acute abnormalities are identified radiographically. Probable chronic left trochanteric bursitis.
--- NOTE | 2019-11-15 21:40 | RADIOLOGY REPORT (SQ) ---
EXAM DESCRIPTION: X-RAY CHEST 2 VIEWS CLINICAL HISTORY: 54 years Female hypotension COMPARISON: None TECHNIQUE: AP and lateral chest x-rays were performed at 2043 hours on 11/15/2019. FINDINGS: EKG leads overlie the chest. The lungs are mildly hypoinflated and clear. There are multiple healing subacute rib fractures involving the right second rib anteriorly, left fifth, sixth and seventh ribs anteriorly, and probably the left third and fourth ribs anteriorly. The heart is normal in size with normal pulmonary vascularity. The costophrenic sulci are sharp. No pneumothorax is seen. IMPRESSION: Multiple healing subacute anterior rib fractures on the left and one involving the right second rib anteriorly. No active cardiopulmonary lesions.
--- NOTE | 2019-11-15 21:49 | RADIOLOGY REPORT (SQ) ---
EXAM DESCRIPTION: [facility]: XR LUMBAR SPINE ANTEROPOSTERIOR, LATERAL, AND OBLIQUES Views: 5 CLINICAL HISTORY: 54 years Female, low back pain COMPARISON: None. FINDINGS: Alignment is anatomic. There is mild facet arthropathy at L4-L5 and L5-S1. Vertebral heights are preserved. Disc spaces are preserved. No focal bone lesions. Psoas shadows are sharp. No acute fractures. IMPRESSION: 1. No acute findings 2. Mild facet arthropathy at L4-L5 and L5-S1
[2019-11-15] MEDS ORDERED: FENTANYL CITRATE INJ/PF 100 MCG/2 ML AMPUL IV ONE (22:53)
[2019-11-16] MEDS ORDERED: FENTANYL CITRATE INJ/PF 100 MCG/2 ML AMPUL IV ONE (03:27)
[2019-11-16 06:03] VITALS: BP 96/62
--- NOTE | 2019-11-16 09:36 | EKG REPORT ---
SEVERITY:- ABNORMAL ECG - SINUS RHYTHM LEFT ANTERIOR FASCICULAR BLOCK PROLONGED QT INTERVAL : Confirmed by: George Mcneill 16-Nov-2019 09:36:08
== END 2019-11-16 08:50 | disposition home or self-care (01) ==
LOC: ER 15:46
DX: S81.812A Laceration without foreign body, left lower leg, initial encounter (principal); M25.551 Pain in right hip; M54.5 Low back pain; R42 Dizziness and giddiness; R60.0 Localized edema; W18.09XA Striking against other object with subsequent fall, initial encounter; I50.9 Heart failure, unspecified; I11.0 Hypertensive heart disease with heart failure
CPT/HCPCS: 93005; 96376; 99284; 96375; 96365; 36415; 87040; 83605; 85025; 85610; 87070; 81001; 82803; 71046; 72110; 73522; 73590; 93010; J3010 ×2; J7120; J2543

== ENCOUNTER 2019-11-18 00:40 | Inpatient (IN) | payer BC ==
[2019-11-18] MEDS ORDERED: FENTANYL CITRATE INJ/PF 100 MCG/2 ML AMPUL IV ONE (04:40)
--- NOTE | 2019-11-18 04:44 | ER Document Report ---
ED Medical Screen (RME) - General Chief Complaint: Back Pain Stated Complaint: BACK PAIN Time Seen by Provider: 11/18/19 04:33 Primary Care Provider: LILLIANA MEJIA MD [Primary Care Provider] - Follow up as needed Notes: Patient is a 54-year-old female with severe lupus that comes to the emergency department for chief complaint of pain in her hips, pain in her legs, she has multiple wounds in various stages of healing, multiple hematomas, 1 of the hematomas on the left have started blistering. Patient also had a recent fall a couple of days ago, had incidentally found recent subacute rib fractures. She i s on pain management but she states this is not helping. She denies fever, vomiting, dizziness, passing out, specific abdominal pain, chest pain, drainage from any wounds. She is following with local wound care. TRAVEL OUTSIDE OF THE [place] IN LAST 30 DAYS: No - Related Data Allergies/Adverse Reactions: codeine Adverse Reaction (Verified 11/15/19 15:55) Nausea Sulfa (Sulfonamide Antibiotics) Adverse Reaction (Verified 11/15/19 15:55) Nausea Past Medical History - Past Medical History Cardiac Medical History: Reports: Hx Congestive Heart Failure, Hx Hypertension Denies: Hx Coronary Artery Disease, Hx Heart Attack Pulmonary Medical History: Denies: Hx Asthma, Hx Bronchitis, Hx COPD, Hx Pneumonia Neurological Medical History: Denies: Hx Cerebrovascular Accident, Hx Seizures Renal/ Medical History: Denies: Hx Peritoneal Dialysis Musculoskeltal Medical History: Reports Hx Arthritis - LUPUS, Reports Hx Systemic Lupus Erythematosus Past Surgical History: Reports: Hx Breast Surgery - BREAST REDUCTION, Hx Section, Hx Hysterectomy, Hx Orthopedic Surgery - TENDON REPAIR RIGHT WRIST - Immunizations Hx Diphtheria, Pertussis, Tetanus Vaccination: Yes Physical Exam - Vital signs Vitals: Temp Pulse Resp BP Pulse Ox 97.4 F 123 H 22 H 125/67 100 11/18/19 01:16 11/18/19 01:16 11/18/19 01:16 11/18/19 01:16 11/18/19 01:16 - Extremities General lower extremity: Other - Multiple open wounds, some generalized erythema around these as well, no overt drainage, abnormal heat, or significant change from prior. There is blistering over the left hematoma which is new. Distal pulses and sensation intact Course - Re-evaluation Re-evalutation: Again patient has multiple open wounds, she has worsening hematoma with blistering on the left, she does have some surrounding erythema, but no obvious significant change from prior, patient had declined antibiotics from yesterday, she has not had a fever, work-up pending. She is somewhat tachycardic today. I have greeted and performed a rapid initial assessment of this patient. A comprehensive ED assessment and evaluation of the patient, analysis of test results and completion of the medical decision making process will be conducted by additional ED providers. - Vital Signs Vital signs: Temp Pulse Resp BP Pulse Ox 97.4 F 123 H 24 H 126/81 H 98 11/18/19 01:16 11/18/19 01:16 11/18/19 04:01 11/18/19 04:01 11/18/19 03:00 Doctor's Discharge - Discharge Referrals: LILLIANA MEJIA MD [Primary Care Provider] - Follow up as needed
[2019-11-18 05:32] LABS: HEMATOCRIT 20.5 % (36.0-47.0); MEAN CORPUSCULAR HEMOGLOBIN 33.8 pg (27.0-33.4); MEAN CORPUSCULAR HGB CONC 35.3 g/dL (32.0-36.0); MEAN CORPUSCULAR VOLUME 96 fl (80-97); PLATELET COUNT 444 10^3/uL (150-450); RED BLOOD COUNT 2.14 10^6/uL (3.72-5.28); RED CELL DISTRIBUTION WIDTH 17.2 % (11.5-14.0); WHITE BLOOD COUNT 10.3 10^3/uL (4.0-10.5)
[2019-11-18 05:48] LABS: ABSOLUTE MONOCYTES # (MANUAL) 0.6 10^3/uL (0.1-1.4); BASOPHILS % (MANUAL) 0 % (0-2); EOSINOPHILS % (MANUAL) 0 % (0-6); LYMPHOCYTES % (MANUAL) 0 % (13-45); MONOCYTES % (MANUAL) 6 % (3-13); SEGMENTED NEUTROPHILS % (MAN) 94 % (42-78); TOTAL CELLS COUNTED 100
[2019-11-18 05:49] LABS: ANISOCYTOSIS 1+; PLATELET COMMENT ADEQUATE; TOXIC VACUOLATION PRESENT
[2019-11-18 05:51] LABS: HEMOGLOBIN 7.2 g/dL (12.0-15.5)
[2019-11-18 05:53] LABS: APPEARANCE,URINE CLEAR; BILIRUBIN,URINE NEGATIVE (NEGATIVE); COLOR,URINE YELLOW; GLUCOSE, URINE NEGATIVE (NEGATIVE); KETONES,URINE NEGATIVE (NEGATIVE); LEUKOCYTE ESTERASE,URINE TRACE (NEGATIVE); NITRITE,URINE NEGATIVE (NEGATIVE); PROTEIN,URINE NEGATIVE (NEGATIVE); URINE SPECIFIC GRAVITY 1.013; UROBILINOGEN,URINE NEGATIVE mg/dL (<2.0)
[2019-11-18 06:04] LABS: ALKALINE PHOSPHATASE 198 U/L (38-126); ANION GAP 11 (5-19); ASPARTATE AMINO TRANSFERASE 110 U/L (14-36); BILIRUBIN,DIRECT 1.8 mg/dL (0.0-0.4); BILIRUBIN,TOTAL 2.4 mg/dL (0.2-1.3); BLOOD UREA NITROGEN 20 mg/dL (7-20); CALCIUM 8.4 mg/dL (8.4-10.2); CARBON DIOXIDE 22 mmol/L (22-30); CHLORIDE 93 mmol/L (98-107); GLUCOSE 86 mg/dL (75-110); POTASSIUM 3.4 mmol/L (3.6-5.0); TOTAL PROTEIN 5.7 g/dL (6.3-8.2)
[2019-11-18] MEDS ORDERED: NORMAL SALINE 500 ML IV ONE (08:25)
--- NOTE | 2019-11-18 09:01 | ER Document Report ---
ED General - General Chief Complaint: Back Pain Stated Complaint: BACK PAIN Time Seen by Provider: 11/18/19 04:33 Primary Care Provider: LILLIANA MEJIA MD [Primary Care Provider] - Follow up as needed Notes: 54-year-old female with history of lupus presents with upper and lower back pain, bilateral shoulder, bilateral hip pain that is been ongoing since Wednesday. Patient states she has narcotic pain medication at home but however has not taken this in the past 3 to 4 days. Patient denies any nausea/vomiting, abdominal pain, diarrhea, constipation, fever, chest pain, shortness of breath, bleeding in her stool, or bleeding from anywhere. Patient states this is the usual pain she has with her lupus. TRAVEL OUTSIDE OF THE [place] IN LAST 30 DAYS: No - Related Data Allergies/Adverse Reactions: codeine Adverse Reaction (Verified 11/15/19 15:55) Nausea Sulfa (Sulfonamide Antibiotics) Adverse Reaction (Verified 11/15/19 15:55) Nausea Past Medical History - Social History Smoking Status: Current Every Day Smoker Family History: Reviewed & Not Pertinent Patient has suicidal ideation: No Patient has homicidal ideation: No - Past Medical History Cardiac Medical History: Reports: Hx Congestive Heart Failure, Hx Hypertension Denies: Hx Coronary Artery Disease, Hx Heart Attack Pulmonary Medical History: Denies: Hx Asthma, Hx Bronchitis, Hx COPD, Hx Pneumonia Neurological Medical History: Denies: Hx Cerebrovascular Accident, Hx Seizures Renal/ Medical History: Denies: Hx Peritoneal Dialysis Musculoskeletal Medical History: Reports Hx Arthritis - LUPUS, Reports Hx Systemic Lupus Erythematosus Past Surgical History: Reports: Hx Breast Surgery - BREAST REDUCTION, Hx Section, Hx Hysterectomy, Hx Orthopedic Surgery - TENDON REPAIR RIGHT WRIST - Immunizations Hx Diphtheria, Pertussis, Tetanus Vaccination: Yes Review of Systems - Review of Systems Notes: Constitutional: Negative for fever. HENT: Negative for sore throat. Eyes: Negative for visual changes. Cardiovascular: Negative for chest pain. Respiratory: Negative for shortness of breath. Gastrointestinal: Negative for abdominal pain, vomiting or diarrhea. Genitourinary: Negative for dysuria. Musculoskeletal: Positive for back pain, hip pain, shoulder pain. Skin: Negative for rash. Neurological: Negative for headaches, weakness or numbness. 10 point ROS negative except as marked above and in HPI. Physical Exam - Vital signs Vitals: Temp Pulse Resp BP Pulse Ox 97.4 F 123 H 22 H 125/67 100 11/18/19 01:16 11/18/19 01:16 11/18/19 01:16 11/18/19 01:16 11/18/19 01:16 - Notes Notes: GENERAL: Well-appearing, well-nourished and in no acute distress. HEAD: Atraumatic, normocephalic. EYES: Extraocular movements intact, sclera anicteric, conjunctiva are normal. NECK: Normal range of motion, supple without lymphadenopathy or JVD. LUNGS: Breath sounds clear to auscultation bilaterally and equal. No wheezes rales or rhonchi. HEART: Regular rate and rhythm without murmurs, rubs or gallops. ABDOMEN: Soft, nontender. No guarding, no rebound. No masses appreciated. EXTREMITIES: Normal range of motion, no pitting or edema. No clubbing or cyanosis. BACK: No spinal tenderness. Mild tenderness to upper thoracic and lumbar paraspinal muscles. NEUROLOGICAL: Cranial nerves II through XII grossly intact. Normal speech, normal gait. PSYCH: Normal mood, normal affect. SKIN: 3-4 wounds with weeping noted to BLE. No surrounding erythema. 2 hematomas noted to BLE. Course - Re-evaluation Re-evalutation: 11/18/19 54-year-old nontoxic, well-appearing pt presents for complaints of hip pain, back pain, and shoulder pain since Wednesday. On my exam, pt falls asleep frequently but is easily arousable. Pt has a drop in hemoglobin from 15 of 8 to 7.2 today. Discussed with attending, Dr. Ku, who recommended fecal hemoccult which is positive. Pt was recently admitted mid-October for GI bleed and had EGD and colonoscopy where a small area of bleeding in the duodenum was found and clipped with no problems or complications. Pt's Na was also 126 which one 500 cc NS bolus was ordered for. 11/18/19 10:[address] Lopez who accepted pt for admission. Requested IMCU bed. Also requested general surgery be called. Spoke to Dr. Sotelo who is currently in OR. Requested hospitalist call him once admitted. 11/18/19 10:[address] Lopez who states he will call general surgeon. - Vital Signs Vital signs: Temp Pulse Resp BP Pulse Ox 98.3 F 123 H 18 131/77 H 98 11/18/19 05:09 11/18/19 01:16 11/18/19 09:08 11/18/19 09:07 11/18/19 08:52 - Laboratory Result Diagrams: 11/18/19 05:09 11/18/19 05:37 Laboratory results interpreted by me: 11/18/19 11/18/19 11/18/19 05:09 05:09 05:37 RBC 2.14 L Hgb 7.2 L Hct 20.5 L MCH 33.8 H RDW 17.2 H Seg Neuts % (Manual) 94 H Lymphocytes % (Manual) 0 L Abs Neuts (Manual) 9.7 H Abs Lymphs (Manual) 0.0 L Sodium 126.3 L Potassium 3.4 L Chloride 93 L Est GFR (MDRD) Non-Af 57 L Total Bilirubin 2.4 H Direct Bilirubin 1.8 H AST 110 H Alkaline Phosphatase 198 H Total Protein 5.7 L Albumin 3.0 L Ur Leukocyte Esterase TRACE H Discharge - Discharge Clinical Impression: Lower GI bleed, Hyponatremia Anemia Qualifiers: Anemia type: unspecified type Qualified Code(s): D64.9 - Anemia, unspecified Back pain Qualifiers: Back pain location: back pain in unspecified location Chronicity: unspecified Back pain laterality: unspecified Qualified Code(s): M54.9 - Dorsalgia, unspecified Hip pain Qualifiers: Laterality: bilateral Qualified Code(s): M25.551 - Pain in right hip Condition: Stable Disposition: ADMITTED INPATIENT Admitting Provider: Dr. Junior Lopez Unit Admitted: IMCU Referrals: LILLIANA MEJIA MD [Primary Care Provider] - Follow up as needed
[2019-11-18] MEDS ORDERED: NORMAL SALINE 250 ML IV PRN (10:21)
[2019-11-18] MEDS ORDERED: LORAZEPAM INJ 2 MG/1 ML VIAL IV ONE (10:28)
[2019-11-18] MEDS ORDERED: LIDOCAINE 2% VISCOUS SOLN 15 ML UDCUP PO ONE (10:49)
[2019-11-18] MEDS ORDERED: PANTOPRAZOLE SODIUM 40 MG VIAL IV ONE ×2 (10:53→11:21)
[2019-11-18] MEDS ORDERED: SUCRALFATE 1 GM TABLET PO ONE (10:54)
[2019-11-18] MEDS: PANTOPRAZOLE SODIUM 40 MG VIAL IV PRN ×2 (11:20→23:39)
[2019-11-18] MEDS ORDERED: GLUCAGON,HUMAN RECOMB 1 MG INJ SUBCUT PRN (12:31)
[2019-11-18] MEDS ORDERED: DEXTROSE 50%-WATER 25 GM/50 ML DISP.SYRIN IV PRN ×2 (12:31)
[2019-11-18] MEDS ORDERED: DEXTROSE 40% GEL 15 GM TUBE PO PRN ×2 (12:31)
[2019-11-18] MEDS ORDERED: GUAIFENESIN SYRP 200 MG/10 ML UDC PO PRN (12:31)
[2019-11-18] MEDS ORDERED: CALCIUM CARBONATE 500 MG TAB.CHEW PO PRN (12:37)
--- NOTE | 2019-11-18 13:12 | PDOC H&P ---
History of Present Illness Admission Date/PCP: 11/18/19 10:21 LILLIANA MEJIA MD History of Present Illness: AGUSTIN ORTEGA is a 54 year old female who presents with complaints of 2 weeks of back/shoulder pain, BRBPR, severe generalized fatigue and weakness. Patient found have a significant drop in her hemoglobin from 8 down to 7.2. She has a history of recurrent GI bleeds in the past due to lymphocytic colitis and she has had multiple endoscopies per patient. It does not appear that she has ever been checked for Helicobacter pylori per records. Previous upper endoscopy revealed duodenal ulcer. General surgery was consulted by ED on admission here, they recommended NG tube to look for upper GI bleeding, only pink-tinged mostly clear liquid came out of NG tube and this was removed. They deemed the patient did not need emergent endoscopy and requested she be put on IV Protonix drip. Patient was transfused 2 units PRBC on admission. Of note, patient also has multiple wounds on both legs as well as hematomas. She thinks that she takes Xarelto but this is not in the records, only aspirin is listed in home medications. She states she has a history of lower extremity DVT but was recently checked with PVL which was negative. She has chronic lupus that is typically treated with immunosuppressive medications including 5 mg prednisone daily and belimumab. 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 Past Medical History Cardiac Medical History: Reports: Congestive Heart Failure, DVT, Hypertension Denies: Coronary Artery Disease, Myocardial Infarction Pulmonary Medical History: Denies: Asthma, Bronchitis, Chronic Obstructive Pulmonary Disease (COPD), Pneumonia Neurological Medical History: Denies: Seizures Malignancy Medical History: Reports: None GI Medical History: Reports: None Musculoskeltal Medical History: Reports: Arthritis - LUPUS Skin Medical History: Reports: Other - Chronic wounds on legs Hematology: Reports: Anemia Past Surgical History Past Surgical History: Reports: Section, Hysterectomy, Orthopedic Surgery - TENDON REPAIR RIGHT WRIST Social History Smoking Status: Current Every Day Smoker Frequency of Alcohol Use: Social Hx Recreational Drug Use: No Drugs: None Hx Prescription Drug Abuse: No - Advance Directive Resuscitation Status: Full Code Surrogate healthcare decision maker:: Advance care planning time spent greater than 16 minutes discussing all aspects of code including cardioversion/chest compressions/intubation patient indicated she would like to be full code. He also designated her M POA as follows: Daughter Jackie Mendoza [phone] Family History Family History: CAD, CVA Parental Family History Reviewed: Yes Children Family History Reviewed: Unknown Sibling(s) Family History Reviewed.: Unknown Medication/Allergy Home Medications: Aspirin [Ecotrin 81 mg EC Tablet] 81 mg PO DAILY 10/19/19 Duloxetine HCl [Cymbalta 30 mg Capsule.dr] 60 mg PO QHS 10/19/19 Ergocalciferol (Vitamin D2) [Drisdol 50,000 unit (1.25MG) Capsule] 50,000 unit PO WE@1000 10/19/19 Furosemide [Lasix 20 mg Tablet] 20 mg PO QPM 10/19/19 Furosemide [Lasix 20 mg Tablet] 40 mg PO QAM 10/19/19 Potassium Chloride [Klor-Con 10 Meq Tablet ER] 30 meq PO DAILY 10/19/19 Pantoprazole Sodium [Protonix [address] Tablet] 40 mg PO BID@0600,1700 #60 tablet.dr 10/22/19 Sucralfate [Carafate 1 gm Tablet] 1 gm PO ACHS #120 tablet 10/22/19 Acetaminophen [Tylenol] 325 mg PO DAILYP PRN 11/18/19 Calcium Carbonate [Tums Chewable 500 mg Tab.chew] 500 mg PO DAILYP PRN 11/18/19 Doxycycline Hyclate [Vibramycin] 100 mg PO Q12 11/18/19 Allergies/Adverse Reactions: codeine Adverse Reaction (Verified 11/15/19 15:55) Nausea Sulfa (Sulfonamide Antibiotics) Adverse Reaction (Verified 11/15/19 15:55) Nausea Review of Systems Constitutional: PRESENT: as per HPI Eyes: PRESENT: as per HPI Ears: PRESENT: as per HPI Nose, Mouth, and Throat: PRESENT: as per HPI Cardiovascular: PRESENT: as per HPI Respiratory: PRESENT: as per HPI Gastrointestinal: PRESENT: as per HPI Genitourinary: PRESENT: as per HPI Musculoskeletal: PRESENT: as per HPI Integumentary: PRESENT: as per HPI Neurological: PRESENT: as per HPI Psychiatric: PRESENT: as per HPI Endocrine: PRESENT: as per HPI Hematologic/Lymphatic: PRESENT: as per HPI Allergic/Immunologic: PRESENT: as per HPI Physical Exam Vital Signs: Temp Pulse Resp BP Pulse Ox 98.2 F 112 H 16 125/67 100 11/18/19 12:04 11/18/19 12:04 11/18/19 12:04 11/18/19 12:04 11/18/19 12:04 Intake & Output 11/17/19 11/18/19 11/19/19 06:59 06:59 06:59 Intake Total 500 Balance 500 Weight 67.132 kg 67.2 kg General appearance: PRESENT: no acute distress, cooperative, disheveled Head exam: PRESENT: atraumatic, normocephalic Eye exam: PRESENT: conjunctiva pale Mouth exam: PRESENT: moist Neck exam: ABSENT: JVD Respiratory exam: PRESENT: clear to auscultation janis. ABSENT: rales, rhonchi, wheezes Cardiovascular exam: PRESENT: RRR. ABSENT: diastolic murmur, rubs, systolic murmur GI/Abdominal exam: PRESENT: normal bowel sounds, soft. ABSENT: distended, guard ing, mass, organolmegaly, rebound, tenderness Rectal exam: PRESENT: deferred Musculoskeletal exam: PRESENT: ambulatory Neurological exam: PRESENT: alert, awake, oriented to person, oriented to place, oriented to situation, other - Chronic focal deficits from previous CVA at baseline per patient. ABSENT: oriented to time Psychiatric exam: PRESENT: appropriate affect, normal mood Skin exam: PRESENT: dry, warm, other - Multiple wounds and hematomas on bilateral legs: Left barajas with approximate 3 cm laceration with no significant drainage from wound. Right barajas with 2 to 3 cm open laceration Results Laboratory Results: 11/18/19 05:09 11/18/19 05:37 11/18/19 11/18/19 11/18/19 05:09 05:09 05:09 WBC 10.3 RBC 2.14 L Hgb 7.2 L Hct 20.5 L MCV 96 MCH 33.8 H MCHC 35.3 RDW 17.2 H Plt Count 444 Seg Neutrophils % Not Reportable Sodium Cancelled Potassium Cancelled Chloride Cancelled Carbon Dioxide Cancelled Anion Gap Cancelled BUN Cancelled Creatinine Cancelled Est GFR ( Amer) Cancelled Est GFR (Non-Af Amer) Cancelled Glucose Cancelled Calcium Cancelled Total Bilirubin Cancelled AST Cancelled Alkaline Phosphatase Cancelled Total Protein Cancelled Albumin Cancelled Urine Color YELLOW Urine Appearance CLEAR Urine pH 5.0 Ur Specific [place] 1.013 Urine Protein NEGATIVE Urine Glucose (UA) NEGATIVE Urine Ketones NEGATIVE Urine Blood NEGATIVE Urine Nitrite NEGATIVE Ur Leukocyte Esterase TRACE H Urine WBC (Auto) 1 Urine RBC (Auto) 1 Blood Type Antibody Screen 11/18/19 11/18/19 05:37 10:30 WBC RBC Hgb Hct MCV MCH MCHC RDW Plt Count Seg Neutrophils % Sodium 126.3 L Potassium 3.4 L Chloride 93 L Carbon Dioxide 22 Anion Gap 11 BUN 20 Creatinine 1.01 Est GFR ( Amer) > 60 Est GFR (Non-Af Amer) Glucose 86 Calcium 8.4 Total Bilirubin 2.4 H AST 110 H Alkaline Phosphatase 198 H Total Protein 5.7 L Albumin 3.0 L Urine Color Urine Appearance Urine pH Ur Specific [place] Urine Protein Urine Glucose (UA) Urine Ketones Urine Blood Urine Nitrite Ur Leukocyte Esterase Urine WBC (Auto) Urine RBC (Auto) Blood Type A POSITIVE Antibody Screen NEGATIVE Assessment and Plan - Diagnosis (1) Lower GI bleed Is this a current diagnosis for this admission?: Yes Plan: -Possible upper versus lower GI bleed; possibly both -Hemoccult positive Hemoglobin down to 7.2 on admission, given 2 units PRBC on admission General surgery consulted and they are holding off on endoscopy for now, recommended IV Protonix drip started on admission Needs close follow-up with GI Would benefit from upper and lower endoscopy in the near future (2) Hyponatremia Is this a current diagnosis for this admission?: Yes Plan: Unclear etiology, possibly medication induced versus volume overload versus SIADH Given saline bolus in ED; may need chronic salt tablets to maintain adequate sodium of 130 or above Trend BMP Would benefit from nephrology follow-up outpatient (3) Cellulitis of right lower extremity Is this a current diagnosis for this admission?: Yes Plan: Not a new problem but seems to be healing quite poorly and quite slowly Likely poor wound healing from chronic steroid use and immunocompromise state Appears to have been on doxycycline [employer] but unclear if she was taking this; started IV doxycycline here Must have follow-up with wound clinic outpatient (4) Acute blood loss anemia Is this a current diagnosis for this admission?: Yes Plan: Due to GI bleed as above (5) Hemiparesis affecting right side as late effect of cerebrovascular accident Is this a current diagnosis for this admission?: Yes Plan: Chronic deficits at baseline per patient; suspect she has some underlying vascular dementia as well (6) Immunocompromised state due to drug therapy Is this a current diagnosis for this admission?: Yes (7) Lymphocytic colitis Is this a current diagnosis for this admission?: Yes Plan: Diagnosed on previous endoscopy that was the source of prior lower GI bleed (8) Lupus (systemic lupus erythematosus) Qualifiers: Systemic lupus erythematosus type: unspecified Systemic lupus erythematosus organ involvement: unspecified Qualified Code(s): M32.9 - Systemic lupus erythematosus, unspecified Is this a current diagnosis for this admission?: Yes (9) Laceration of left leg Qualifiers: Encounter type: initial encounter Qualified Code(s): S81.812A - Laceration without foreign body, left lower leg, initial encounter Is this a current diagnosis for this admission?: Yes Plan: Antibiotics as above Wound care per general surgery Patient unable to recall how she lacerated her leg or when this occurred - Time Time Spent with patient: 35 or more minutes Medications reviewed and adjusted accordingly: Yes Anticipated discharge: Home Within: within 72 hours - Inpatient Certification Based on my medical assessment, after consideration of the patient's comor bidities, presenting symptoms, or acuity I expect that the services needed warrant INPATIENT care.: Yes I certify that my determination is in accordance with my understanding of Medicare's requirements for reasonable and necessary INPATIENT services [42 CFR 412.3e].: Yes Medical Necessity: Significant Comorbidiites Make Outpatient Treatment Too Risky, Need Close Monitoring Due to Risk of Patient Decompensation, Risk of Diagnosis Which Will Require Inpatient Eval/Care/Monitoring
[2019-11-18] MEDS: FUROSEMIDE 20 MG TABLET PO SCH (17:33)
[2019-11-18] MEDS: SUCRALFATE 1 GM TABLET PO SCH ×2 (17:33→22:56)
[2019-11-18] MEDS: ACETAMINOPHEN 325 MG TABLET PO PRN (17:33)
[2019-11-18] MEDS: NYSTATIN 500000 UNIT/5 ML UDCUP PO SCH (17:34)
[2019-11-18] MEDS ORDERED: DOXYCYCLINE HYCLATE INJ 100 MG VIAL IV SCH (18:00)
[2019-11-18] MEDS ORDERED: DOXYCYCLINE HYCLATE 100 MG in DEXTROSE 5%-WATER 250 ML IV SCH (22:00)
--- NOTE | 2019-11-18 22:00 | PDOC CONSULTATION ---
Consultation Consult Date: 11/18/19 Attending physician:: DORA CRUZ Provider Consulted: PREETI ARGUELLES Consult reason:: gi bleeding, lower extremity lacerations and hematomas History of Present Illness Admission Date/PCP: 11/18/19 10:21 LILLIANA MEJIA MD History of Present Illness: AGUSTIN ORTEGA is a 54 year old female 54-year-old female with history of lupus presents with upper and lower back pain, bilateral shoulder, bilateral hip pain that is been ongoing since Wednesday. Patient states she has narcotic pain medication at home but however has not taken this in the past 3 to 4 days. Patient denies any nausea/vomiting, abdominal pain, diarrhea, constipation, fever, chest pain, shortness of breath, bleeding in her stool, or bleeding from anywhere. Patient states this is the usual pain she has with her lupus. Patient was hospitalized late October 2019 with a GI bleed she underwent a upper endoscopy Dr. Garza who clipped the bleeding duodenal ulcer in addition that he performed a sigmoidoscopy which showed absolutely no bleeding in her colon she also underwent a previous colonoscopy the year before which was negative. She was noted to have a drop in her hemoglobin and heme occult positive stool noted by the PA in the emergency room therefore consult was made for possible repeat colonoscopy. An NG tube was placed in the patient during the ER visit in the emergency room and noted no significant blood return. In addition to this she has developed a number of lower extremity lacerations from bumping into furniture as well as hematomas. She has taken anticoagulation in the past for DVT and is unsure if she is taking it now Past Medical History Cardiac Medical History: Reports: Congestive Heart Failure, DVT, Hypertension Denies: Coronary Artery Disease, Myocardial Infarction Pulmonary Medical History: Denies: Asthma, Bronchitis, Chronic Obstructive Pulmonary Disease (COPD), Pneumonia Neurological Medical History: Denies: Seizures Malignancy Medical History: Reports: None GI Medical History: Reports: None Musculoskeltal Medical History: Reports: Arthritis - LUPUS Skin Medical History: Reports: Other - Chronic wounds on legs Hematology: Reports: Anemia Past Surgical History Past Surgical History: Reports: Section, Hysterectomy, Orthopedic Surgery - TENDON REPAIR RIGHT WRIST Social History Smoking Status: Current Every Day Smoker Frequency of Alcohol Use: Social Hx Recreational Drug Use: No Drugs: None Hx Prescription Drug Abuse: No - Advance Directive Resuscitation Status: Full Code Family History Family History: CAD, CVA Parental Family History Reviewed: No Children Family History Reviewed: NA Sibling(s) Family History Reviewed.: NA Medication/Allergy Home Medications: Aspirin [Ecotrin 81 mg EC Tablet] 81 mg PO DAILY 10/19/19 Duloxetine HCl [Cymbalta 30 mg Capsule.dr] 60 mg PO QHS 10/19/19 Ergocalciferol (Vitamin D2) [Drisdol 50,000 unit (1.25MG) Capsule] 50,000 unit PO WE@1000 10/19/19 Furosemide [Lasix 20 mg Tablet] 20 mg PO QPM 10/19/19 Furosemide [Lasix 20 mg Tablet] 40 mg PO QAM 10/19/19 Potassium Chloride [Klor-Con 10 Meq Tablet ER] 30 meq PO DAILY 10/19/19 Pantoprazole Sodium [Protonix [address] Tablet] 40 mg PO BID@0600,1700 #60 tablet.dr 10/22/19 Sucralfate [Carafate 1 gm Tablet] 1 gm PO ACHS #120 tablet 10/22/19 Acetaminophen [Tylenol] 325 mg PO DAILYP PRN 11/18/19 Calcium Carbonate [Tums Chewable 500 mg Tab.chew] 500 mg PO DAILYP PRN 11/18/19 Doxycycline Hyclate [Vibramycin] 100 mg PO Q12 11/18/19 Allergies/Adverse Reactions: codeine Adverse Reaction (Verified 11/15/19 15:55) Nausea Sulfa (Sulfonamide Antibiotics) Adverse Reaction (Verified 11/15/19 15:55) Nausea Review of Systems Constitutional: PRESENT: fatigue, weakness Eyes: ABSENT: as per HPI, visual disturbances, other Ears: ABSENT: as per HPI, hearing changes, other Nose, Mouth, and Throat: ABSENT: as per HPI, headache(s), mouth pain, sore throat, vertigo, other Breasts: ABSENT: as per HPI, other Cardiovascular: ABSENT: as per HPI, chest pain, dyspnea on exertion, edema, orthropnea, palpitations, other Respiratory: ABSENT: as per HPI, cough, dyspnea, hemoptysis, sputum, other Gastrointestinal: ABSENT: as per HPI, abdominal pain, bloating, coffee ground emesis, constipation, diarrhea, dysphagia, heartburn, hematemesis, hematochezia, melena, nausea, vomiting, other Genitourinary: ABSENT: as per HPI, difficulty urinating, dysuria, hematuria, nocturia, other Musculoskeletal: PRESENT: back pain, joint swelling, muscle weakness Integumentary: PRESENT: wounds - Multiple open clean lacerations on both bilateral lower extremities multiple 2 to 3 cm hematomas one on her right calf 2 on her left lateral thigh Neurological: ABSENT: as per HPI, abnormal gait, abnormal movements, abnormal speech, confusion, convulsions, dizziness, focal weakness, frequent falls, lack of coordination, memory loss, numbness, paresthesias, restless legs, syncope, tingling, tremor(s), vertigo, weakness, other Psychiatric: ABSENT: as per HPI, anxiety, depression, hallucinations, homidical ideation, suicidal ideation, other Endocrine: ABSENT: as per HPI, cold intolerance, flushing, heat intolerance, menstrual abnormalities, polydipsia, polyphagia, polyuria, other Hematologic/Lymphatic: PRESENT: easy bleeding, easy bruising Allergic/Immunologic: ABSENT: as per HPI, seasonal rhinorrhea, other Physical Exam Vital Signs: Temp Pulse Resp BP Pulse Ox 98.7 F 103 H 20 122/79 100 11/18/19 19:31 11/18/19 19:31 11/18/19 19:31 11/18/19 19:31 11/18/19 19:31 Intake & Output 11/17/19 11/18/19 11/19/19 06:59 06:59 06:59 Intake Total 850 Output Total 450 Balance 400 Weight 67.132 kg 67.2 kg General appearance: PRESENT: disheveled, mild distress Head exam: PRESENT: atraumatic Eye exam: PRESENT: EOMI Ear exam: PRESENT: normal external ear exam Mouth exam: PRESENT: moist Teeth exam: PRESENT: poor dentation Neck exam: PRESENT: full ROM Respiratory exam: PRESENT: clear to auscultation janis Cardiovascular exam: PRESENT: RRR Pulses: PRESENT: +2 pedal pulses bilateral GI/Abdominal exam: PRESENT: soft Rectal exam: PRESENT: deferred Extremities exam: PRESENT: joint swelling - Lateral lower extremity lacerations that are clean and open with some granulation tissue there is no evidence of any purulence or drainage she has a number of hematomas underneath the skin on both her lower calves that are soft without surrounding cellulitis, pedal edema, tenderness, +1 edema Neurological exam: PRESENT: alert, awake, oriented to person, oriented to place Skin exam: PRESENT: dry Results Laboratory Results: 11/18/19 05:09 11/18/19 05:37 11/18/19 11/18/19 11/18/19 05:09 05:09 05:09 WBC 10.3 RBC 2.14 L Hgb 7.2 L Hct 20.5 L MCV 96 MCH 33.8 H MCHC 35.3 RDW 17.2 H Plt Count 444 Seg Neutrophils % Not Reportable Sodium Cancelled Potassium Cancelled Chloride Cancelled Carbon Dioxide Cancelled Anion Gap Cancelled BUN Cancelled Creatinine Cancelled Est GFR ( Amer) Cancelled Est GFR (Non-Af Amer) Cancelled Glucose Cancelled Calcium Cancelled Total Bilirubin Cancelled AST Cancelled Alkaline Phosphatase Cancelled Total Protein Cancelled Albumin Cancelled Urine Color YELLOW Urine Appearance CLEAR Urine pH 5.0 Ur Specific Hart[place] 1.013 Urine Protein NEGATIVE Urine Glucose (UA) NEGATIVE Urine Ketones NEGATIVE Urine Blood NEGATIVE Urine Nitrite NEGATIVE Ur Leukocyte Esterase TRACE H Urine WBC (Auto) 1 Urine RBC (Auto) 1 Blood Type Antibody Screen 11/18/19 11/18/19 05:37 10:30 WBC RBC Hgb Hct MCV MCH MCHC RDW Plt Count Seg Neutrophils % Sodium 126.3 L Potassium 3.4 L Chloride 93 L Carbon Dioxide 22 Anion Gap 11 BUN 20 Creatinine 1.01 Est GFR ( Amer) > 60 Est GFR (Non-Af Amer) Glucose 86 Calcium 8.4 Total Bilirubin 2.4 H AST 110 H Alkaline Phosphatase 198 H Total Protein 5.7 L Albumin 3.0 L Urine Color Urine Appearance Urine pH Ur Specific Hartly Urine Protein Urine Glucose (UA) Urine Ketones Urine Blood Urine Nitrite Ur Leukocyte Esterase Urine WBC (Auto) Urine RBC (Auto) Blood Type A POSITIVE Antibody Screen NEGATIVE Assessment & Plan - Diagnosis (1) Anemia Qualifiers: Anemia type: other cause Is this a current diagnosis for this admission?: Yes (2) Hemiparesis affecting right side as late effect of cerebrovascular accident Is this a current diagnosis for this admission?: Yes (3) Hip pain Qualifiers: Laterality: bilateral Qualified Code(s): M25.551 - Pain in right hip; M25.552 - Pain in left hip (4) Immunocompromised state due to drug therapy Is this a current diagnosis for this admission?: Yes (5) Lupus (systemic lupus erythematosus) Qualifiers: Systemic lupus erythematosus type: unspecified Systemic lupus erythematosus organ involvement: unspecified Qualified Code(s): M32.9 - Systemic lupus erythematosus, unspecified Is this a current diagnosis for this admission?: Yes - Plan Summary Plan Summary: Impression 54-year-old female who is immunocompromise secondary to chronic steroid use because of her lupus. She presented last month in October with a GI bleed and upper endoscopy showed a bleeding duodenal ulcer with that was controlled by Dr. Garza She returns now with multiple complaints of chronic joint pain and back pain a repeat hemoglobin in the emergency room showed a drop of approximately 1 g. This occurred over the last week. An NG tube was placed in the emergency room did not show any significant fresh blood. Incidentally she has had number of lacerations to her lower extremities from bumping into furniture as she walked around her house and her immunocompromise state with slow healing but no evidence of any acute infection she also has a number of hematomas in her lower extremities which could account for the drop in hematocrit. I doubt that she has a current ongoing GI bleed with a negative NG tube and normal colonoscopies recently. Recommendations 1. No indications for upper or lower endoscopy at this time. 2. She will require a repeat upper endoscopy to document ulcer healing in the next 4 to 6 weeks. 3. Would continue a Protonix drip and Carafate solution p.o. 4. No indications for surgical debridement of her lower extremity hematomas as there is no evidence of any ongoing infection. 5. We will treat the lower extremity open lacerations with dressing changes using Xeroform gauze and a light compression bandage. 6. Please reconsult surgery for any other problems
[2019-11-19] MEDS: NYSTATIN 500000 UNIT/5 ML UDCUP PO SCH ×5 (00:08→23:29)
[2019-11-19] MEDS: RINGERS SOLUTION,LACTATED 1,000 ML IV PRN ×2 (01:34→12:02)
[2019-11-19 06:39] LABS: HEMATOCRIT 28.9 % (36.0-47.0); MEAN CORPUSCULAR HEMOGLOBIN 31.8 pg (27.0-33.4); MEAN CORPUSCULAR HGB CONC 35.4 g/dL (32.0-36.0); PLATELET COUNT 367 10^3/uL (150-450); RED BLOOD COUNT 3.22 10^6/uL (3.72-5.28); RED CELL DISTRIBUTION WIDTH 17.1 % (11.5-14.0); WHITE BLOOD COUNT 9.8 10^3/uL (4.0-10.5)
[2019-11-19 06:57] LABS: ANION GAP 10 (5-19); BLOOD UREA NITROGEN 11 mg/dL (7-20); CALCIUM 7.6 mg/dL (8.4-10.2); CARBON DIOXIDE 26 mmol/L (22-30); CHLORIDE 93 mmol/L (98-107)
[2019-11-19 06:58] LABS: HEMOGLOBIN 10.2 g/dL (12.0-15.5); MEAN CORPUSCULAR VOLUME 90 fl (80-97)
[2019-11-19 07:03] LABS: ABSOLUTE LYMPHOCYTES# (MANUAL) 0.1 10^3/uL (0.5-4.7); ABSOLUTE MONOCYTES # (MANUAL) 0.5 10^3/uL (0.1-1.4); ANISOCYTOSIS 1+; BAND NEUTROPHILS % (MANUAL) 2 % (3-5); BASOPHILS % (MANUAL) 0 % (0-2); EOSINOPHILS % (MANUAL) 0 % (0-6); LYMPHOCYTES % (MANUAL) 1 % (13-45); MONOCYTES % (MANUAL) 5 % (3-13); POIKILOCYTOSIS SLIGHT; POLYCHROMASIA 1+; SEGMENTED NEUTROPHILS % (MAN) 92 % (42-78); TEAR DROP CELLS SLIGHT; TOTAL CELLS COUNTED 100
[2019-11-19 07:04] LABS: PLATELET COMMENT ADEQUATE
[2019-11-19 07:18] LABS: GLUCOSE 50 mg/dL (75-110); POTASSIUM 2.7 mmol/L (3.6-5.0)
[2019-11-19] MEDS ORDERED: DEXTROSE 50%-WATER 25 GM/50 ML DISP.SYRIN IV ONE (09:00)
[2019-11-19] MEDS: POTASSIUM CHLORIDE 20 MEQ/50 ML RTU IV SCH ×2 (09:42→12:02)
[2019-11-19] MEDS: POTASSIUM CHLORIDE 20 MEQ PACKET PO SCH ×2 (09:42→17:17)
[2019-11-19] MEDS: SUCRALFATE 1 GM TABLET PO SCH ×4 (09:42→21:45)
[2019-11-19] MEDS ORDERED: POTASSIUM CHLORIDE 10 MEQ TABLET.ER PO SCH (10:00)
[2019-11-19] MEDS ORDERED: DOXYCYCLINE HYCLATE 100 MG in DEXTROSE 5%-WATER 250 ML IV SCH ×2 (10:00→14:00)
[2019-11-19] MEDS: PANTOPRAZOLE SODIUM 40 MG VIAL IV PRN ×2 (10:42→21:45)
--- NOTE | 2019-11-19 12:14 | PDOC PROGRESS REPORT ---
Subjective Subjective:: Patient is a 54-year-old white female who presented for acute GI bleed, acute blood loss anemia, bilateral lower extremity hematomas, coagulopathy, hypokalemia, hyponatremia. 11/19: She states she feels much more tired today and her legs are irritated. She states she does have some allergic response to surgical tape and bandages sometimes. General surgery saw patient stated there are no surgical needs at this time, he also put in wound care orders. Reason For Visit: GI BLEED, ACUTE BLOOD LOSS ANEMIA, Physical Exam Vital Signs: Temp Pulse Resp BP Pulse Ox 99.0 F 95 18 128/69 H 100 11/19/19 07:45 11/19/19 07:45 11/19/19 07:45 11/19/19 07:45 11/19/19 07:45 Intake & Output 11/18/19 11/19/19 11/20/19 06:59 06:59 06:59 Intake Total 1640 944 Output Total 950 Balance 690 944 Weight 67.132 kg 63.5 kg General appearance: PRESENT: no acute distress, well-developed, well-nourished Head exam: PRESENT: atraumatic, normocephalic Eye exam: PRESENT: conjunctiva pink Respiratory exam: PRESENT: clear to auscultation janis. ABSENT: rales, rhonchi, wheezes Cardiovascular exam: PRESENT: RRR. ABSENT: diastolic murmur, rubs, systolic murmur GI/Abdominal exam: PRESENT: normal bowel sounds, soft. ABSENT: distended, guarding, mass, organolmegaly, rebound, tenderness Musculoskeletal exam: PRESENT: dislocation - Multiple hematomas of varying size on bilateral legs Neurological exam: PRESENT: alert, awake, oriented to person, oriented to place Psychiatric exam: PRESENT: appropriate affect, normal mood Skin exam: PRESENT: dry, skin tears - Skin tears as before, very slow to heal, warm Results Laboratory Results: 11/19/19 05:16 11/19/19 05:16 11/18/19 11/19/19 11/19/19 10:30 05:16 05:16 WBC 9.8 RBC 3.22 L Hgb 10.2 L D Hct 28.9 L MCV 90 D MCH 31.8 MCHC 35.4 RDW 17.1 H Plt Count 367 Seg Neutrophils % Not Reportable Sodium 128.9 L Potassium 2.7 L* Chloride 93 L Carbon Dioxide 26 Anion Gap 10 BUN 11 Creatinine 0.70 Est GFR ( Amer) > 60 Glucose 50 L Calcium 7.6 L Blood Type A POSITIVE Antibody Screen NEGATIVE Assessment and Plan - Diagnosis (1) Lower GI bleed Is this a current diagnosis for this admission?: Yes Plan: -Possible upper versus lower GI bleed; possibly both -Hemoccult positive Hemoglobin down to 7.2 on admission, given 2 units PRBC on admission General surgery consulted and they are holding off on endoscopy for now, recommended IV Protonix drip started on admission Needs close follow-up with GI Would benefit from upper and lower endoscopy in the near future Continue monitoring hemoglobin, blood count is rising now (2) Hyponatremia Is this a current diagnosis for this admission?: Yes Plan: Unclear etiology, possibly medication induced versus volume overload versus SIADH Given saline bolus in ED; may need chronic salt tablets to maintain adequate sodium of 130 or above Trend BMP Would benefit from nephrology follow-up outpatient Improved (3) Cellulitis of right lower extremity Is this a current diagnosis for this admission?: Yes Plan: Not a new problem but seems to be healing quite poorly and quite slowly Likely poor wound healing from chronic steroid use and immunocompromise state 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 taking this; started IV doxycycline here Must have follow-up with wound clinic outpatient Continued on doxycycline (4) Acute blood loss anemia Is this a current diagnosis for this admission?: Yes (5) Hemiparesis affecting right side as late effect of cerebrovascular accident Is this a current diagnosis for this admission?: Yes (6) Immunocompromised state due to drug therapy Is this a current diagnosis for this admission?: Yes (7) Lymphocytic colitis Is this a current diagnosis for this admission?: Yes (8) Lupus (systemic lupus erythematosus) Qualifiers: Systemic lupus erythematosus type: unspecified Systemic lupus erythematosus organ involvement: unspecified Qualified Code(s): M32.9 - Systemic lupus erythematosus, unspecified Is this a current diagnosis for this admission?: Yes (9) Laceration of left leg Qualifiers: Encounter type: initial encounter Qualified Code(s): S81.812A - Laceration without foreign body, left lower leg, initial encounter Is this a current diagnosis for this admission?: Yes (10) Hypokalemia Is this a current diagnosis for this admission?: Yes Plan: Trend BMP Replete oral and IV - Time Time Spent with patient: 25-34 minutes Medications reviewed and adjusted accordingly: Yes Anticipated discharge: Home Within: within 36 hours - Inpatient Certification Medical Necessity: Need Close Monitoring Due to Risk of Patient Decompensation - Patient would benefit from GI consult when they return on Wednesday
[2019-11-19] MEDS: ACETAMINOPHEN 325 MG TABLET PO PRN ×2 (14:11→23:29)
[2019-11-19 16:42] LABS: ANION GAP 10 (5-19); BLOOD UREA NITROGEN 9 mg/dL (7-20); CALCIUM 7.7 mg/dL (8.4-10.2); CARBON DIOXIDE 22 mmol/L (22-30); CHLORIDE 97 mmol/L (98-107)
[2019-11-19 16:49] LABS: GLUCOSE 66 mg/dL (75-110)
[2019-11-19] MEDS: DOXYCYCLINE HYCLATE 100 MG in DEXTROSE 5%-WATER 250 ML IV SCH (17:18)
[2019-11-19] MEDS: FUROSEMIDE 20 MG TABLET PO SCH (17:18)
[2019-11-20 05:21] LABS: HEMATOCRIT 26.6 % (36.0-47.0); HEMOGLOBIN 9.3 g/dL (12.0-15.5); MEAN CORPUSCULAR HEMOGLOBIN 31.5 pg (27.0-33.4); MEAN CORPUSCULAR HGB CONC 35.1 g/dL (32.0-36.0); MEAN CORPUSCULAR VOLUME 90 fl (80-97); PLATELET COUNT 351 10^3/uL (150-450); RED BLOOD COUNT 2.96 10^6/uL (3.72-5.28); RED CELL DISTRIBUTION WIDTH 17.4 % (11.5-14.0); WHITE BLOOD COUNT 6.2 10^3/uL (4.0-10.5)
[2019-11-20 05:38] LABS: ANION GAP 8 (5-19); BLOOD UREA NITROGEN 7 mg/dL (7-20); CALCIUM 7.4 mg/dL (8.4-10.2); CARBON DIOXIDE 23 mmol/L (22-30); CHLORIDE 97 mmol/L (98-107); GLUCOSE 95 mg/dL (75-110); POTASSIUM 3.7 mmol/L (3.6-5.0)
[2019-11-20] MEDS: RINGERS SOLUTION,LACTATED 1,000 ML IV PRN (05:40)
[2019-11-20] MEDS: DOXYCYCLINE HYCLATE 100 MG in DEXTROSE 5%-WATER 250 ML IV SCH ×2 (05:41→17:24)
[2019-11-20] MEDS: NYSTATIN 500000 UNIT/5 ML UDCUP PO SCH ×4 (05:42→23:28)
[2019-11-20 06:02] LABS: ABSOLUTE LYMPHOCYTES# (MANUAL) 0.3 10^3/uL (0.5-4.7); ABSOLUTE MONOCYTES # (MANUAL) 0.5 10^3/uL (0.1-1.4); BASOPHILS % (MANUAL) 0 % (0-2); EOSINOPHILS % (MANUAL) 0 % (0-6); LYMPHOCYTES % (MANUAL) 5 % (13-45); MONOCYTES % (MANUAL) 8 % (3-13); SEGMENTED NEUTROPHILS % (MAN) 87 % (42-78); TOTAL CELLS COUNTED 100
[2019-11-20 06:07] LABS: ANISOCYTOSIS 1+; POIKILOCYTOSIS 1+; TOXIC GRANULATION 1+
[2019-11-20 06:08] LABS: OVALOCYTES SLIGHT; PLATELET COMMENT ADEQUATE; TEAR DROP CELLS SLIGHT
[2019-11-20] MEDS: SUCRALFATE 1 GM TABLET PO SCH ×4 (08:31→22:26)
[2019-11-20] MEDS: ACETAMINOPHEN 325 MG TABLET PO PRN ×3 (08:31→22:26)
[2019-11-20] MEDS: POTASSIUM CHLORIDE 20 MEQ PACKET PO SCH ×2 (09:20→17:23)
[2019-11-20] MEDS ORDERED: PANTOPRAZOLE SODIUM 40 MG TABLET.DR PO SCH (10:00)
--- NOTE | 2019-11-20 12:02 | RADIOLOGY REPORT (SQ) ---
EXAM DESCRIPTION: HIP RIGHT AP/LATERAL COMPLETED DATE/TIME: 11/20/2019 11:27 am REASON FOR STUDY: Extreme Right Hip Pain COMPARISON: 11/15/2019 NUMBER OF VIEWS: Two views. TECHNIQUE: AP and frog-leg view of the right hip. LIMITATIONS: None. FINDINGS: MINERALIZATION: Normal. RIGHT HIP: No fracture or dislocation. No worrisome bone lesions. No contour deformity. No joint sp patrick narrowing. OPPOSITE HIP: No fracture or dislocation. No worrisome bone lesions. SOFT TISSUES: No findings. OTHER: No other significant finding. IMPRESSION: NEGATIVE STUDY OF THE RIGHT HIP. NO EXPLANATION FOR PAIN. TECHNICAL DOCUMENTATION: JOB ID: [id number] [email or web address] All Rights Reserved Reading location - IP/workstation name: [email or web address]
--- NOTE | 2019-11-20 13:16 | PDOC PROGRESS REPORT ---
Subjective Progress Note for:: 11/20/19 Subjective:: Patient continues to complain of pain in the right hip which is limiting her ambulation. Had a bowel movement but did not look to appreciate if there was any blood in the stool or not. Still complains of significant fatigue. Reason For Visit: GI BLEED, ACUTE BLOOD LOSS ANEMIA, Physical Exam Vital Signs: Temp Pulse Resp BP Pulse Ox 98.6 F 97 17 119/82 100 11/20/19 11:35 11/20/19 11:35 11/20/19 11:35 11/20/19 11:35 11/20/19 11:35 Intake & Output 11/19/19 11/20/19 11/21/19 06:59 06:59 06:59 Intake Total 1640 2595 250 Output Total 950 900 Balance 690 1695 250 Weight 63.5 kg 64.1 kg General appearance: PRESENT: no acute distress, cooperative Neck exam: ABSENT: JVD Respiratory exam: PRESENT: clear to auscultation jains, unlabored. ABSENT: tachypnea, wheezes Cardiovascular exam: PRESENT: RRR, +S1, +S2. ABSENT: tachycardia GI/Abdominal exam: PRESENT: normal bowel sounds, soft. ABSENT: rebound, rigid, tenderness Extremities exam: PRESENT: full ROM, other - Tenderness in right hip.. ABSENT: calf tenderness, joint swelling Neurological exam: PRESENT: alert, awake, oriented to person, oriented to place, oriented to time Results Laboratory Results: 11/20/19 04:18 11/20/19 04:18 11/19/19 11/20/19 11/20/19 15:57 04:18 04:18 WBC 6.2 RBC 2.96 L Hgb 9.3 L Hct 26.6 L MCV 90 MCH 31.5 MCHC 35.1 RDW 17.4 H Plt Count 351 Seg Neutrophils % Not Reportable Sodium 128.6 L 128.4 L Potassium 4.0 D 3.7 Chloride 97 L 97 L Carbon Dioxide 22 23 Anion Gap 10 8 BUN 9 7 Creatinine 0.63 0.68 Est GFR ( Amer) > 60 > 60 Glucose 66 L 95 Calcium 7.7 L 7.4 L Impressions: Hip/Pelvis X-Ray 11/20/19 09:46 IMPRESSION: NEGATIVE STUDY OF THE RIGHT HIP. NO EXPLANATION FOR PAIN. Assessment and Plan - Diagnosis (1) GI bleed Qualifiers: GI bleed type/associated pathology: melena Qualified Code(s): K92.1 - Melena Is this a current diagnosis for this admission?: Yes Plan: Patient had upper endoscopy and flexible sigmoidoscopy done last month by Dr. Garza which showed bleeding duodenal ulcer which was controlled Patient evaluated by surgery during this hospitalization to see if need for repeat endoscopy and was deemed that repeat endoscopy was not needed at this time. Patient also received 2 units of blood in the ER. Hemoglobin seems to be holding at this time and I will continue to monitor H&H. De-escalate Protonix drip to p.o. Protonix twice daily Monitor vital signs (2) Hyponatremia Is this a current diagnosis for this admission?: Yes Plan: Etiology unclear but sodium is holding steady in the high 120s at this time and has been stable stable for the past several days Continue to monitor and have patient follow-up outpatient for further evaluation basic metabolic panel Continue gentle diuresis with Lasix 20 mg every afternoon (3) Hemiparesis affecting right side as late effect of cerebrovascular accident Is this a current diagnosis for this admission?: Yes Plan: Chronic deficits at baseline per patient; suspect she has some underlying vascular dementia as well (4) Cellulitis of right lower extremity Is this a current diagnosis for this admission?: Yes Plan: Not a new problem but seems to be healing quite poorly and quite slowly Likely poor wound healing from chronic steroid use and immunocompromise state 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; started IV doxycycline here Must have follow-up with wound clinic outpatient Continued on doxycycline (5) Lymphocytic colitis Is this a current diagnosis for this admission?: Yes Plan: Diagnosed on previous endoscopy that was the source of prior lower GI bleed (6) Lupus (systemic lupus erythematosus) Qualifiers: Systemic lupus erythematosus type: unspecified Systemic lupus erythematosus organ involvement: unspecified Qualified Code(s): M32.9 - Systemic lupus erythematosus, unspecified Is this a current diagnosis for this admission?: Yes (7) Weakness generalized Is this a current diagnosis for this admission?: Yes Plan: Associated with polyarthralgias which may be a component of patient's lupus, and physical debility I have evaluated right hip pain with x-ray today which shows no evidence of any fracture or significant arthritis in that joint to explain her pain. Patient will ultimately need physical therapy and likely placement for short-term rehabilitation. Check TSH with a.m. labs - Time Time Spent with patient: 15-24 minutes
[2019-11-20] MEDS: FUROSEMIDE 20 MG TABLET PO SCH (17:23)
[2019-11-20] MEDS: PANTOPRAZOLE SODIUM 40 MG TABLET.DR PO SCH (17:26)
[2019-11-20] MEDS ORDERED: DIAZEPAM INJ 10 MG/2 ML DISP.SYRIN IV ONE (23:30)
[2019-11-20] MEDS ORDERED: KETOROLAC TROMETHAMINE INJ/PF 30 MG/1 ML SDV IM ONE (23:30)
[2019-11-21 05:02] LABS: HEMATOCRIT 28.7 % (36.0-47.0); HEMOGLOBIN 10.3 g/dL (12.0-15.5); MEAN CORPUSCULAR HEMOGLOBIN 32.6 pg (27.0-33.4); MEAN CORPUSCULAR HGB CONC 35.9 g/dL (32.0-36.0); MEAN CORPUSCULAR VOLUME 91 fl (80-97); PLATELET COUNT 350 10^3/uL (150-450); RED BLOOD COUNT 3.16 10^6/uL (3.72-5.28); RED CELL DISTRIBUTION WIDTH 17.4 % (11.5-14.0); WHITE BLOOD COUNT 5.8 10^3/uL (4.0-10.5)
[2019-11-21 05:25] LABS: ANION GAP 7 (5-19); BLOOD UREA NITROGEN 6 mg/dL (7-20); CALCIUM 7.7 mg/dL (8.4-10.2); CARBON DIOXIDE 23 mmol/L (22-30); CHLORIDE 98 mmol/L (98-107); POTASSIUM 4.1 mmol/L (3.6-5.0)
[2019-11-21 05:30] LABS: GLUCOSE 61 mg/dL (75-110)
[2019-11-21 05:48] LABS: ABSOLUTE LYMPHOCYTES# (MANUAL) 0.2 10^3/uL (0.5-4.7); ABSOLUTE MONOCYTES # (MANUAL) 0.5 10^3/uL (0.1-1.4); ANISOCYTOSIS 1+; BAND NEUTROPHILS % (MANUAL) 3 % (3-5); BASOPHILS % (MANUAL) 0 % (0-2); EOSINOPHILS % (MANUAL) 0 % (0-6); LYMPHOCYTES % (MANUAL) 3 % (13-45); MONOCYTES % (MANUAL) 9 % (3-13); MYELOCYTES % (MANUAL) 2 % (0); PLATELET COMMENT ADEQUATE; POLYCHROMASIA 1+; SEGMENTED NEUTROPHILS % (MAN) 83 % (42-78); TOTAL CELLS COUNTED 100
[2019-11-21] MEDS: DOXYCYCLINE HYCLATE 100 MG in DEXTROSE 5%-WATER 250 ML IV SCH (06:12)
[2019-11-21] MEDS: PANTOPRAZOLE SODIUM 40 MG TABLET.DR PO SCH ×2 (06:12→17:31)
[2019-11-21] MEDS: NYSTATIN 500000 UNIT/5 ML UDCUP PO SCH ×4 (06:12→23:33)
[2019-11-21 08:19] LABS: FREE T3 2.11 pg/mL (2.77-5.27); FREE T4 (FREE THYROXINE) 1.31 ng/dL (0.78-2.19)
[2019-11-21] MEDS: SUCRALFATE 1 GM TABLET PO SCH ×4 (08:47→21:53)
[2019-11-21] MEDS: ACETAMINOPHEN 325 MG TABLET PO PRN ×2 (08:47→23:34)
[2019-11-21] MEDS: POTASSIUM CHLORIDE 20 MEQ PACKET PO SCH ×2 (10:05→17:31)
[2019-11-21] MEDS ORDERED: LEVOTHYROXINE SODIUM 0.1 MG TABLET PO ONE (10:41)
--- NOTE | 2019-11-21 10:44 | PDOC PROGRESS REPORT ---
Subjective Progress Note for:: 11/21/19 Subjective:: Patient states she feels a little better today but still fatigued. Has not been able to ambulate much. Able to ambulate within her room transferring to chair. Denies any shortness of breath at the moment. Still complains of right hip pain. Has not had any bloody bowel movement for the past couple of days. Patient's also stopped taking Synthroid over 2 years ago. Reason For Visit: GI BLEED, ACUTE BLOOD LOSS ANEMIA, Physical Exam Vital Signs: Temp Pulse Resp BP Pulse Ox 98.0 F 97 17 109/95 H 100 11/21/19 07:07 11/21/19 07:07 11/21/19 07:07 11/21/19 07:07 11/21/19 07:07 Intake & Output 11/20/19 11/21/19 11/22/19 06:59 06:59 06:59 Intake Total 2595 1640 250 Output Total 900 300 Balance 1695 1340 250 Weight 64.1 kg 67.4 kg General appearance: PRESENT: no acute distress, cooperative Neck exam: ABSENT: JVD Respiratory exam: PRESENT: clear to auscultation janis, unlabored. ABSENT: tachypnea, wheezes Cardiovascular exam: PRESENT: RRR, +S1, +S2. ABSENT: tachycardia GI/Abdominal exam: PRESENT: normal bowel sounds, soft. ABSENT: rebound, rigid, tenderness Extremities exam: PRESENT: tenderness - Tenderness over right hip, +1 edema, other - Lacerations Neurological exam: PRESENT: alert, awake, oriented to person, oriented to place, oriented to time, oriented to situation Results Laboratory Results: 11/21/19 04:21 11/21/19 04:21 11/21/19 11/21/19 11/21/19 04:21 04:21 04:21 WBC 5.8 RBC 3.16 L Hgb 10.3 L Hct 28.7 L MCV 91 MCH 32.6 MCHC 35.9 RDW 17.4 H Plt Count 350 Seg Neutrophils % Not Reportable Sodium 128.2 L Potassium 4.1 Chloride 98 Carbon Dioxide 23 Anion Gap 7 BUN 6 L Creatinine 0.68 Est GFR ( Amer) > 60 Glucose 61 L Calcium 7.7 L TSH 22.20 H Free T4 Free T3 pg/mL 11/21/19 04:21 WBC RBC Hgb Hct MCV MCH MCHC RDW Plt Count Seg Neutrophils % Sodium Potassium Chloride Carbon Dioxide Anion Gap BUN Creatinine Est GFR ( Amer) Glucose Calcium TSH Free T4 1.31 Free T3 pg/mL 2.11 L Impressions: Hip/Pelvis X-Ray 11/20/19 09:46 IMPRESSION: NEGATIVE STUDY OF THE RIGHT HIP. NO EXPLANATION FOR PAIN. Assessment and Plan - Diagnosis (1) Hypothyroidism Qualifiers: Hypothyroidism type: unspecified Qualified Code(s): E03.9 - Hypothyroidism, unspecified Is this a current diagnosis for this admission?: Yes Plan: Patient has a history of hypothyroidism but has stopped taking Synthroid 2 years ago. Hypothyroidism is poorly controlled given elevated TSH of 22 even despite normal free T4 level. T3 is also low. This may be very well accounting for patient's extreme fatigue, muscle pain, generalized muscle weakness. Check CK level given right hip pain and tenderness (2) GI bleed Qualifiers: GI bleed type/associated pathology: melena Qualified Code(s): K92.1 - Melena Is this a current diagnosis for this admission?: Yes Plan: Patient had upper endoscopy and flexible sigmoidoscopy done last month by Dr. Garza which showed bleeding duodenal ulcer which was controlled Patient evaluated by surgery during this hospitalization to see if need for repeat endoscopy and was deemed that repeat endoscopy was not needed at this time. Patient also received 2 units of blood in the ER. Hemoglobin continues to hold steady and no recurrence of GI bleed. No need for intervention inpatient at this time. Protonix twice daily (3) Hyponatremia Is this a current diagnosis for this admission?: Yes Plan: I suspect this may be secondary to reset osmostat for patient's hypothyroidism Holding steady at 128 Outpatient follow-up for regular repeat BMPs with primary care provider (4) Hemiparesis affecting right side as late effect of cerebrovascular accident Is this a current diagnosis for this admission?: Yes Plan: Chronic deficits at baseline per patient (5) Cellulitis of right lower extremity Is this a current diagnosis for this admission?: Yes Plan: Not a new problem but seems to be healing quite poorly and quite slowly Likely poor wound healing from chronic steroid use and immunocompromise state Patient was started on doxycycline outpatient on 11/03/2019. But also had just completed 21 days of doxycycline from 10/16/2019. I will discontinue doxycycline at this time. Encourage proper wound care with adequate wound dressings and regular follow-up with the wound clinic (6) Lymphocytic colitis Is this a current diagnosis for this admission?: Yes Plan: Diagnosed on previous endoscopy that was the source of prior lower GI bleed (7) Lupus (systemic lupus erythematosus) Qualifiers: Systemic lupus erythematosus type: unspecified Systemic lupus erythematosus organ involvement: unspecified Qualified Code(s): M32.9 - Systemic lupus erythematosus, unspecified Is this a current diagnosis for this admission?: Yes (8) Weakness generalized Is this a current diagnosis for this admission?: Yes Plan: Associated with polyarthralgias, and physical debility and inadequately controlled hypothyroidism I have evaluated right hip pain with x-ray today which shows no evidence of any fracture or significant arthritis in that joint to explain her pain. Patient will ultimately need adequate control of hypothyroidism for which I will reinitiate Synthroid, physical therapy and likely placement for short-term rehabilitation. - Time Time Spent with patient: Less than 15 minutes
[2019-11-21] MEDS: KETOROLAC TROMETHAMINE INJ/PF 30 MG/1 ML SDV IV PRN ×2 (15:51→23:03)
[2019-11-21] MEDS: LIDOCAINE 5% (700 MG) TRANSDERMAL ADH..PATCH TP SCH (15:51)
[2019-11-21] MEDS: FUROSEMIDE 20 MG TABLET PO SCH (17:31)
[2019-11-22] MEDS: NYSTATIN 500000 UNIT/5 ML UDCUP PO SCH ×4 (05:59→23:36)
[2019-11-22] MEDS: LEVOTHYROXINE SODIUM 0.1 MG TABLET PO SCH (05:59)
[2019-11-22] MEDS: PANTOPRAZOLE SODIUM 40 MG TABLET.DR PO SCH ×2 (05:59→17:34)
[2019-11-22] MEDS: POTASSIUM CHLORIDE 20 MEQ PACKET PO SCH ×2 (09:36→17:34)
[2019-11-22] MEDS: ACETAMINOPHEN 325 MG TABLET PO PRN ×3 (09:36→23:36)
[2019-11-22] MEDS: SUCRALFATE 1 GM TABLET PO SCH ×4 (09:37→22:02)
[2019-11-22] MEDS: ERGOCALCIFEROL (VITAMIN D2) 50000 UNIT (1.25 MG) CAPSULE PO SCH (09:37)
[2019-11-22] MEDS: LIDOCAINE 5% (700 MG) TRANSDERMAL ADH..PATCH TP SCH (09:37)
[2019-11-22] MEDS: KETOROLAC TROMETHAMINE INJ/PF 30 MG/1 ML SDV IV PRN ×2 (11:44→18:38)
--- NOTE | 2019-11-22 17:04 | PDOC PROGRESS REPORT ---
Subjective Progress Note for:: 11/22/19 Subjective:: Patient is doing well. Mild improvement in strength level. Still has muscle weakness. Reason For Visit: GI BLEED, ACUTE BLOOD LOSS ANEMIA, Physical Exam Vital Signs: Temp Pulse Resp BP Pulse Ox 98.6 F 98 17 117/79 100 11/22/19 14:57 11/22/19 14:57 11/22/19 14:57 11/22/19 14:57 11/22/19 14:57 Intake & Output 11/21/19 11/22/19 11/23/19 06:59 06:59 06:59 Intake Total 1640 820 120 Output Total 300 Balance 1340 820 120 Weight 67.4 kg 66.8 kg General appearance: PRESENT: no acute distress, cooperative Neck exam: ABSENT: JVD Respiratory exam: PRESENT: clear to auscultation janis Cardiovascular exam: PRESENT: +S1, +S2 GI/Abdominal exam: PRESENT: normal bowel sounds, soft. ABSENT: tenderness Neurological exam: PRESENT: alert, awake Results Laboratory Results: 11/21/19 04:21 11/21/19 04:21 11/18/19 16:42 Stool - Stool Helicobacter pylori Antigen - Final 11/21/19 04:21 Creatine Kinase 70 Impressions: Hip/Pelvis X-Ray 11/20/19 09:46 IMPRESSION: NEGATIVE STUDY OF THE RIGHT HIP. NO EXPLANATION FOR PAIN. Assessment and Plan - Diagnosis (1) Hypothyroidism Qualifiers: Hypothyroidism type: unspecified Qualified Code(s): E03.9 - Hypothyroidism, unspecified Is this a current diagnosis for this admission?: Yes (2) GI bleed Qualifiers: GI bleed type/associated pathology: melena Qualified Code(s): K92.1 - Melena Is this a current diagnosis for this admission?: Yes (3) Hyponatremia Is this a current diagnosis for this admission?: Yes (4) Hemiparesis affecting right side as late effect of cerebrovascular accident Is this a current diagnosis for this admission?: Yes (5) Cellulitis of right lower extremity Is this a current diagnosis for this admission?: Yes (6) Lymphocytic colitis Is this a current diagnosis for this admission?: Yes (7) Lupus (systemic lupus erythematosus) Qualifiers: Systemic lupus erythematosus type: unspecified Systemic lupus erythematosus organ involvement: unspecified Qualified Code(s): M32.9 - Systemic lupus erythematosus, unspecified Is this a current diagnosis for this admission?: Yes (8) Weakness generalized Is this a current diagnosis for this admission?: Yes - Plan Summary Summary: Patient has been started on Synthroid Repeat thyroid function test in 4 weeks CK within normal limits Aggressive physical therapy No recurrence of GI bleed thus far Last hemoglobin showed stability At this point we are waiting on placement at SNF. Patient did walk with physical therapy who stated that patient was okay for home health. Discussed with [employer] planners who informed me that Adult Protective Services reported it was unsafe for patient to be discharged home. Hence pursuing SNF placement at this time. - Time Time Spent with patient: Less than 15 minutes
[2019-11-22] MEDS: FUROSEMIDE 20 MG TABLET PO SCH (17:34)
[2019-11-23] MEDS: NYSTATIN 500000 UNIT/5 ML UDCUP PO SCH ×3 (06:35→18:13)
[2019-11-23] MEDS: PANTOPRAZOLE SODIUM 40 MG TABLET.DR PO SCH ×2 (06:35→18:14)
[2019-11-23] MEDS: LEVOTHYROXINE SODIUM 0.1 MG TABLET PO SCH (06:35)
[2019-11-23] MEDS: SUCRALFATE 1 GM TABLET PO SCH ×4 (07:55→21:16)
[2019-11-23] MEDS: POTASSIUM CHLORIDE 20 MEQ PACKET PO SCH ×2 (10:23→18:13)
[2019-11-23] MEDS: LIDOCAINE 5% (700 MG) TRANSDERMAL ADH..PATCH TP SCH (10:23)
--- NOTE | 2019-11-23 11:02 | PDOC PROGRESS REPORT ---
Subjective Progress Note for:: 11/23/19 Subjective:: Patient still fatigued but mildly improved. Still has some generalized muscle weakness. Reason For Visit: GI BLEED, ACUTE BLOOD LOSS ANEMIA, Physical Exam Vital Signs: Temp Pulse Resp BP Pulse Ox 98.0 F 91 17 130/81 H 100 11/23/19 07:12 11/23/19 07:12 11/23/19 07:12 11/23/19 07:12 11/23/19 07:12 Intake & Output 11/22/19 11/23/19 11/24/19 06:59 06:59 06:59 Intake Total 820 340 Balance 820 340 Weight 66.8 kg 67.6 kg General appearance: PRESENT: no acute distress, cooperative Respiratory exam: PRESENT: clear to auscultation janis Cardiovascular exam: PRESENT: +S1, +S2 GI/Abdominal exam: PRESENT: soft. ABSENT: tenderness Neurological exam: PRESENT: alert, awake Psychiatric exam: ABSENT: agitated, anxious Results Laboratory Results: 11/21/19 04:21 11/21/19 04:21 11/18/19 05:37 Blood Blood Culture - Final NO GROWTH IN 5 DAYS 11/18/19 05:09 Blood Blood Culture - Final NO GROWTH IN 5 DAYS 11/18/19 16:42 Stool - Stool Helicobacter pylori Antigen - Final 11/21/19 04:21 Creatine Kinase 70 Impressions: Hip/Pelvis X-Ray 11/20/19 09:46 IMPRESSION: NEGATIVE STUDY OF THE RIGHT HIP. NO EXPLANATION FOR PAIN. Assessment and Plan - Diagnosis (1) Hypothyroidism Qualifiers: Hypothyroidism type: unspecified Qualified Code(s): E03.9 - Hypothyroidism, unspecified Is this a current diagnosis for this admission?: Yes (2) GI bleed Qualifiers: GI bleed type/associated pathology: melena Qualified Code(s): K92.1 - Melena Is this a current diagnosis for this admission?: Yes (3) Hyponatremia Is this a current diagnosis for this admission?: Yes (4) Hemiparesis affecting right side as late effect of cerebrovascular accident Is this a current diagnosis for this admission?: Yes (5) Cellulitis of right lower extremity Is this a current diagnosis for this admission?: Yes (6) Lymphocytic colitis Is this a current diagnosis for this admission?: Yes (7) Lupus (systemic lupus erythematosus) Qualifiers: Systemic lupus erythematosus type: unspecified Systemic lupus erythematosus organ involvement: unspecified Qualified Code(s): M32.9 - Systemic lupus erythematosus, unspecified Is this a current diagnosis for this admission?: Yes (8) Weakness generalized Is this a current diagnosis for this admission?: Yes - Plan Summary Summary: Patient has been started on Synthroid Repeat thyroid function test in 4 weeks CK within normal limits Aggressive physical therapy No recurrence of GI bleed thus far Last hemoglobin showed stability At this point we are waiting on placement at SNF. Patient did walk with physical therapy who stated that patient was okay for home health. Discussed with information systems planner who informed me that Adult Protective Services reported it was unsafe for patient to be discharged home. Hence pursuing SNF placement at this time. 11/23/2019-continue Synthroid. Remains medically cleared for discharge. Still awaiting insurance authorization for SNF placement. - Time Time Spent with patient: Less than 15 minutes
[2019-11-23] MEDS: KETOROLAC TROMETHAMINE INJ/PF 30 MG/1 ML SDV IV PRN ×2 (12:36→19:49)
[2019-11-23] MEDS: FUROSEMIDE 20 MG TABLET PO SCH (18:14)
[2019-11-24] MEDS: KETOROLAC TROMETHAMINE INJ/PF 30 MG/1 ML SDV IV PRN (01:46)
[2019-11-24] MEDS: NYSTATIN 500000 UNIT/5 ML UDCUP PO SCH ×4 (01:46→19:00)
[2019-11-24] MEDS ORDERED: DIAZEPAM INJ 10 MG/2 ML DISP.SYRIN IV ONE (03:15)
[2019-11-24] MEDS ORDERED: KETOROLAC TROMETHAMINE INJ/PF 30 MG/1 ML SDV IV ONE (03:15)
[2019-11-24] MEDS: LEVOTHYROXINE SODIUM 0.1 MG TABLET PO SCH (05:09)
[2019-11-24] MEDS: PANTOPRAZOLE SODIUM 40 MG TABLET.DR PO SCH ×2 (05:09→18:57)
[2019-11-24] MEDS: SUCRALFATE 1 GM TABLET PO SCH ×4 (13:12→21:34)
[2019-11-24] MEDS: POTASSIUM CHLORIDE 20 MEQ PACKET PO SCH ×2 (13:13→18:59)
[2019-11-24] MEDS: CEPHALEXIN 500 MG CAPSULE PO SCH ×2 (13:39→21:34)
[2019-11-24] MEDS: LIDOCAINE 5% (700 MG) TRANSDERMAL ADH..PATCH TP SCH (13:46)
--- NOTE | 2019-11-24 16:01 | PDOC PROGRESS REPORT ---
Subjective Progress Note for:: 11/24/19 Subjective:: still c/o pain in Right thigh. Has some redness as well. Reason For Visit: GI BLEED, ACUTE BLOOD LOSS ANEMIA, Physical Exam Vital Signs: Temp Pulse Resp BP Pulse Ox 97.5 F 84 18 120/73 97 11/24/19 10:50 11/24/19 10:50 11/24/19 10:50 11/24/19 10:50 11/24/19 10:50 Intake & Output 11/23/19 11/24/19 11/25/19 06:59 06:59 06:59 Intake Total 340 1580 720 Output Total 500 0 Balance 340 1080 720 Weight 67.6 kg 66.3 kg 66.3 kg General appearance: PRESENT: no acute distress, cooperative Neck exam: ABSENT: JVD Respiratory exam: PRESENT: clear to auscultation janis, unlabored. ABSENT: tachypnea, wheezes Cardiovascular exam: PRESENT: RRR, +S1, +S2. ABSENT: tachycardia GI/Abdominal exam: PRESENT: soft. ABSENT: guarding, rebound, rigid, tenderness Extremities exam: PRESENT: other - mild erythema and tenderness of right thigh posterior Neurological exam: PRESENT: alert, awake, oriented to person, oriented to place, oriented to time Results Laboratory Results: 11/21/19 04:21 11/21/19 04:21 11/21/19 04:21 Creatine Kinase 70 Impressions: Hip/Pelvis X-Ray 11/20/19 09:46 IMPRESSION: NEGATIVE STUDY OF THE RIGHT HIP. NO EXPLANATION FOR PAIN. Assessment and Plan - Diagnosis (1) Hypothyroidism Qualifiers: Hypothyroidism type: unspecified Qualified Code(s): E03.9 - Hypothyroidism, unspecified Is this a current diagnosis for this admission?: Yes (2) GI bleed Qualifiers: GI bleed type/associated pathology: melena Qualified Code(s): K92.1 - Melena Is this a current diagnosis for this admission?: Yes (3) Hyponatremia Is this a current diagnosis for this admission?: Yes (4) Hemiparesis affecting right side as late effect of cerebrovascular accident Is this a current diagnosis for this admission?: Yes (5) Cellulitis of right lower extremity Is this a current diagnosis for this admission?: Yes (6) Lymphocytic colitis Is this a current diagnosis for this admission?: Yes (7) Lupus (systemic lupus erythematosus) Qualifiers: Systemic lupus erythematosus type: unspecified Systemic lupus erythematosus organ involvement: unspecified Qualified Code(s): M32.9 - Systemic lupus erythematosus, unspecified Is this a current diagnosis for this admission?: Yes (8) Weakness generalized Is this a current diagnosis for this admission?: Yes - Plan Summary Summary: Patient has been started on Synthroid Repeat thyroid function test in 4 weeks CK within normal limits Aggressive physical therapy No recurrence of GI bleed thus far Last hemoglobin showed stability At this point we are waiting on placement at SNF. Patient did walk with physical therapy who stated that patient was okay for home health. Discussed with city planner who informed me that Adult Protective Services reported it was unsafe for patient to be discharged home. Hence pursuing SNF placement at this time. 11/23/2019-continue Synthroid. Remains medically cleared for discharge. Still awaiting insurance authorization for SNF placement. 11/24/2019-patient's external pharmacy rx reviewed shows that patient has been on doxycycline for a few weeks now. Demarcated area of erythema from RLE cellulitis is showing improvement. Will give keflex for about 5 more days and monitor erythema. Check CBC in am to ensure no leukocytosis. Continue Physical therapy. Continue synthroid. Patient still stable and awaiting placement at SNF. - Time Time Spent with patient: 15-24 minutes
[2019-11-24] MEDS: FUROSEMIDE 20 MG TABLET PO SCH (18:57)
[2019-11-24] MEDS: CYCLOBENZAPRINE HCL 10 MG TABLET PO PRN (21:34)
[2019-11-25] MEDS: NYSTATIN 500000 UNIT/5 ML UDCUP PO SCH ×3 (03:55→11:16)
[2019-11-25 04:54] LABS: HEMATOCRIT 29.1 % (36.0-47.0); HEMOGLOBIN 9.9 g/dL (12.0-15.5); MEAN CORPUSCULAR HEMOGLOBIN 31.8 pg (27.0-33.4); MEAN CORPUSCULAR HGB CONC 34.1 g/dL (32.0-36.0); MEAN CORPUSCULAR VOLUME 93 fl (80-97); PLATELET COUNT 325 10^3/uL (150-450); RED BLOOD COUNT 3.12 10^6/uL (3.72-5.28); RED CELL DISTRIBUTION WIDTH 17.5 % (11.5-14.0)
[2019-11-25 05:12] LABS: ABSOLUTE LYMPHOCYTES# (MANUAL) 0.4 10^3/uL (0.5-4.7); ABSOLUTE MONOCYTES # (MANUAL) 0.7 10^3/uL (0.1-1.4); BASOPHILS % (MANUAL) 0 % (0-2); EOSINOPHILS % (MANUAL) 0 % (0-6); LYMPHOCYTES % (MANUAL) 7 % (13-45); MONOCYTES % (MANUAL) 12 % (3-13); SEGMENTED NEUTROPHILS % (MAN) 81 % (42-78); TOTAL CELLS COUNTED 100
[2019-11-25 05:13] LABS: ANION GAP 8 (5-19); ANISOCYTOSIS 1+; BLOOD UREA NITROGEN 8 mg/dL (7-20); CARBON DIOXIDE 21 mmol/L (22-30); CHLORIDE 102 mmol/L (98-107); GLUCOSE 80 mg/dL (75-110); PLATELET COMMENT ADEQUATE; POTASSIUM 3.4 mmol/L (3.6-5.0)
[2019-11-25] MEDS: LEVOTHYROXINE SODIUM 0.1 MG TABLET PO SCH (05:24)
[2019-11-25] MEDS: PANTOPRAZOLE SODIUM 40 MG TABLET.DR PO SCH ×2 (05:24→17:17)
[2019-11-25] MEDS: CEPHALEXIN 500 MG CAPSULE PO SCH ×3 (05:24→21:19)
[2019-11-25] MEDS ORDERED: POTASSIUM CHLORIDE 10 MEQ TABLET.ER PO ONE (07:24)
[2019-11-25] MEDS: SUCRALFATE 1 GM TABLET PO SCH ×4 (08:31→21:19)
--- NOTE | 2019-11-25 09:46 | PDOC PROGRESS REPORT ---
Subjective Progress Note for:: 11/25/19 Subjective:: Patient still little weak upon he was a bit better today. Denies shortness of breath chest pain fever or chills. Still some pain in her right thigh but the redness is improving significantly. Reason For Visit: GI BLEED, ACUTE BLOOD LOSS ANEMIA, Physical Exam Vital Signs: Temp Pulse Resp BP Pulse Ox 98.6 F 94 14 119/70 98 11/25/19 07:39 11/25/19 07:39 11/25/19 07:39 11/25/19 07:39 11/25/19 07:39 Intake & Output 11/24/19 11/25/19 11/26/19 06:59 06:59 06:59 Intake Total 1580 1280 Output Total 500 0 Balance 1080 1280 Weight 66.3 kg 66.2 kg General appearance: PRESENT: no acute distress, cooperative Neck exam: ABSENT: JVD GI/Abdominal exam: PRESENT: soft. ABSENT: rigid, tenderness Extremities exam: PRESENT: other - Very mild to minimal redness in right posterior thigh Neurological exam: PRESENT: alert, awake Results Laboratory Results: 11/25/19 04:34 11/25/19 04:34 11/25/19 11/25/19 04:34 04:34 WBC 6.0 RBC 3.12 L Hgb 9.9 L Hct 29.1 L MCV 93 MCH 31.8 MCHC 34.1 RDW 17.5 H Plt Count 325 Seg Neutrophils % Not Reportable Sodium 130.5 L Potassium 3.4 L Chloride 102 Carbon Dioxide 21 L Anion Gap 8 BUN 8 Creatinine 0.75 Est GFR ( Amer) > 60 Glucose 80 Calcium 8.0 L 11/21/19 04:21 Creatine Kinase 70 Impressions: Hip/Pelvis X-Ray 11/20/19 09:46 IMPRESSION: NEGATIVE STUDY OF THE RIGHT HIP. NO EXPLANATION FOR PAIN. Assessment and Plan - Diagnosis (1) Hypothyroidism Qualifiers: Hypothyroidism type: unspecified Qualified Code(s): E03.9 - Hypothyroidism, unspecified Is this a current diagnosis for this admission?: Yes (2) GI bleed Qualifiers: GI bleed type/associated pathology: melena Qualified Code(s): K92.1 - Melena Is this a current diagnosis for this admission?: Yes (3) Hyponatremia Is this a current diagnosis for this admission?: Yes (4) Hemiparesis affecting right side as late effect of cerebrovascular accident Is this a current diagnosis for this admission?: Yes (5) Cellulitis of right lower extremity Is this a current diagnosis for this admission?: Yes (6) Lymphocytic colitis Is this a current diagnosis for this admission?: Yes (7) Lupus (systemic lupus erythematosus) Qualifiers: Systemic lupus erythematosus type: unspecified Systemic lupus erythematosus organ involvement: unspecified Qualified Code(s): M32.9 - Systemic lupus erythematosus, unspecified Is this a current diagnosis for this admission?: Yes (8) Weakness generalized Is this a current diagnosis for this admission?: Yes - Plan Summary Summary: Patient has been started on Synthroid Repeat thyroid function test in 4 weeks CK within normal limits Aggressive physical therapy No recurrence of GI bleed thus far Last hemoglobin showed stability At this point we are waiting on placement at SNF. Patient did walk with physical therapy who stated that patient was okay for home health. Discussed with tool and production planner who informed me that Adult Protective Services reported it was unsafe for patient to be discharged home due to lack of adequate supervision and patient significant ambulatory dysfunction. Hence pursuing SNF placement at this time. 11/23/2019-continue Synthroid. Remains medically cleared for discharge. Still awaiting insurance authorization for SNF placement. 11/24/2019-patient's external pharmacy rx reviewed shows that patient has been on doxycycline for a few weeks now. Demarcated area of erythema from RLE cellulitis is showing improvement. Will give keflex for about 5 more days and monitor erythema. Check CBC in am to ensure no leukocytosis. Continue Physical therapy. Continue synthroid. Patient still stable and awaiting placement at SNF. 11/25/2019-RLE cellulitis is significantly improving and mostly resolved at this point. Continue Keflex for about 3-4 more days. CBC shows no evidence of leukocytosis. Continue Synthroid. Encourage ambulation. Continue with aggressive physical therapy while waiting for placement at SNF. - Time Time Spent with patient: Less than 15 minutes
[2019-11-25] MEDS: POTASSIUM CHLORIDE 20 MEQ PACKET PO SCH ×2 (10:44→17:17)
[2019-11-25] MEDS: LIDOCAINE 5% (700 MG) TRANSDERMAL ADH..PATCH TP SCH (10:53)
[2019-11-25] MEDS: IBUPROFEN 400 MG TABLET PO PRN (11:19)
[2019-11-25] MEDS: CYCLOBENZAPRINE HCL 10 MG TABLET PO PRN ×2 (11:19→21:19)
[2019-11-25] MEDS: ACETAMINOPHEN 325 MG TABLET PO PRN (13:27)
[2019-11-25] MEDS: FUROSEMIDE 20 MG TABLET PO SCH (17:17)
[2019-11-26] MEDS: IBUPROFEN 400 MG TABLET PO PRN ×2 (02:07→10:54)
[2019-11-26] MEDS: PANTOPRAZOLE SODIUM 40 MG TABLET.DR PO SCH ×2 (05:23→16:16)
[2019-11-26] MEDS: CEPHALEXIN 500 MG CAPSULE PO SCH ×3 (05:23→21:28)
[2019-11-26] MEDS: LEVOTHYROXINE SODIUM 0.1 MG TABLET PO SCH (05:23)
[2019-11-26] MEDS: SUCRALFATE 1 GM TABLET PO SCH ×4 (08:08→21:23)
--- NOTE | 2019-11-26 10:50 | PDOC PROGRESS REPORT ---
Subjective Progress Note for:: 11/26/19 Subjective:: Patient has no complaints. Ambulated with assistance yesterday but endorsed some pain in her right leg during the process. Reason For Visit: GI BLEED, ACUTE BLOOD LOSS ANEMIA, Physical Exam Vital Signs: Temp Pulse Resp BP Pulse Ox 98.1 F 91 17 103/67 97 11/26/19 07:15 11/26/19 07:15 11/26/19 07:15 11/26/19 07:15 11/26/19 07:15 Intake & Output 11/25/19 11/26/19 11/27/19 06:59 06:59 06:59 Intake Total 1280 266 Output Total 0 900 Balance 1280 -634 Weight 66.2 kg 67.1 kg General appearance: PRESENT: no acute distress, cooperative Neck exam: ABSENT: JVD Respiratory exam: PRESENT: unlabored. ABSENT: accessory muscle use, retraction, tachypnea GI/Abdominal exam: PRESENT: soft. ABSENT: firm, rebound, rigid, tenderness Extremities exam: PRESENT: other - Erythema almost fully gone in her right thigh Results Laboratory Results: 11/25/19 04:34 11/25/19 04:34 11/21/19 04:21 Creatine Kinase 70 Impressions: Hip/Pelvis X-Ray 11/20/19 09:46 IMPRESSION: NEGATIVE STUDY OF THE RIGHT HIP. NO EXPLANATION FOR PAIN. Assessment and Plan - Diagnosis (1) Hypothyroidism Qualifiers: Hypothyroidism type: unspecified Qualified Code(s): E03.9 - Hypothyroidism, unspecified Is this a current diagnosis for this admission?: Yes (2) GI bleed Qualifiers: GI bleed type/associated pathology: melena Qualified Code(s): K92.1 - Melena Is this a current diagnosis for this admission?: Yes (3) Hyponatremia Is this a current diagnosis for this admission?: Yes (4) Hemiparesis affecting right side as late effect of cerebrovascular accident Is this a current diagnosis for this admission?: Yes (5) Cellulitis of right lower extremity Is this a current diagnosis for this admission?: Yes (6) Lymphocytic colitis Is this a current diagnosis for this admission?: Yes (7) Lupus (systemic lupus erythematosus) Qualifiers: Systemic lupus erythematosus type: unspecified Systemic lupus erythematosus organ involvement: unspecified Qualified Code(s): M32.9 - Systemic lupus erythematosus, unspecified Is this a current diagnosis for this admission?: Yes (8) Weakness generalized Is this a current diagnosis for this admission?: Yes - Plan Summary Summary: Patient has been started on Synthroid Repeat thyroid function test in 4 weeks CK within normal limits Aggressive physical therapy No recurrence of GI bleed thus far Last hemoglobin showed stability At this point we are waiting on placement at SNF. Patient did walk with physical therapy who stated that patient was okay for home health. Discussed with category planner who informed me that Adult Protective Services reported it was unsafe for patient to be discharged home due to lack of adequate supervision and patient significant ambulatory dysfunction. Hence pursuing SNF placement at this time. 11/23/2019-continue Synthroid. Remains medically cleared for discharge. Still awaiting insurance authorization for SNF placement. 11/24/2019-patient's external pharmacy rx reviewed shows that patient has been on doxycycline for a few weeks now. Demarcated area of erythema from RLE cellulitis is showing improvement. Will give keflex for about 5 more days and monitor erythema. Check CBC in am to ensure no leukocytosis. Continue Physical therapy. Continue synthroid. Patient still stable and awaiting placement at SNF. 11/25/2019-RLE cellulitis is significantly improving and mostly resolved at this point. Continue Keflex for about 3-4 more days. CBC shows no evidence of leukocytosis. Continue Synthroid. Encourage ambulation. Continue with aggressive physical therapy while waiting for placement at SNF. 11/26/2019-continue Keflex for 2 more days for cellulitis. Vital signs are stable. Continue Synthroid for treatment of hypothyroidism. Recheck TSH in 4 weeks. Remains medically cleared. Continue aggressive physical therapy while awaiting placement at SNF - Time Time Spent with patient: 15-24 minutes
[2019-11-26] MEDS: CYCLOBENZAPRINE HCL 10 MG TABLET PO PRN ×2 (10:53→21:24)
[2019-11-26] MEDS: POTASSIUM CHLORIDE 20 MEQ PACKET PO SCH ×2 (10:53→17:32)
[2019-11-26] MEDS: LIDOCAINE 5% (700 MG) TRANSDERMAL ADH..PATCH TP SCH (10:54)
[2019-11-26] MEDS: ACETAMINOPHEN 325 MG TABLET PO PRN ×2 (13:42→21:23)
[2019-11-26] MEDS: FUROSEMIDE 20 MG TABLET PO SCH (17:31)
[2019-11-27] MEDS: CEPHALEXIN 500 MG CAPSULE PO SCH ×3 (06:03→21:54)
[2019-11-27] MEDS: PANTOPRAZOLE SODIUM 40 MG TABLET.DR PO SCH ×2 (06:03→17:28)
[2019-11-27] MEDS: LEVOTHYROXINE SODIUM 0.1 MG TABLET PO SCH (06:03)
[2019-11-27] MEDS: SUCRALFATE 1 GM TABLET PO SCH ×4 (08:49→21:54)
[2019-11-27] MEDS: LIDOCAINE 5% (700 MG) TRANSDERMAL ADH..PATCH TP SCH (10:37)
--- NOTE | 2019-11-27 11:11 | PDOC PROGRESS REPORT ---
Subjective Progress Note for:: 11/27/19 Subjective:: Patient has no complaints today. Ready to work with physical therapy. Reason For Visit: GI BLEED, ACUTE BLOOD LOSS ANEMIA, Physical Exam Vital Signs: Temp Pulse Resp BP Pulse Ox 98.3 F 92 17 105/70 97 11/27/19 07:23 11/27/19 07:23 11/27/19 07:23 11/27/19 07:23 11/27/19 07:23 Intake & Output 11/26/19 11/27/19 11/28/19 06:59 06:59 06:59 Intake Total 266 1340 Output Total 900 400 Balance -634 940 Weight 67.1 kg 66.1 kg General appearance: PRESENT: no acute distress, cooperative Neck exam: ABSENT: JVD Respiratory exam: PRESENT: unlabored. ABSENT: accessory muscle use, retraction, tachypnea GI/Abdominal exam: PRESENT: soft. ABSENT: tenderness Neurological exam: PRESENT: alert, awake Psychiatric exam: ABSENT: agitated, anxious Results Laboratory Results: 11/25/19 04:34 11/25/19 04:34 11/21/19 04:21 Creatine Kinase 70 Impressions: Hip/Pelvis X-Ray 11/20/19 09:46 IMPRESSION: NEGATIVE STUDY OF THE RIGHT HIP. NO EXPLANATION FOR PAIN. Assessment and Plan - Diagnosis (1) Hypothyroidism Qualifiers: Hypothyroidism type: unspecified Qualified Code(s): E03.9 - Hypothyroidism, unspecified Is this a current diagnosis for this admission?: Yes (2) GI bleed Qualifiers: GI bleed type/associated pathology: melena Qualified Code(s): K92.1 - Melena Is this a current diagnosis for this admission?: Yes (3) Hyponatremia Is this a current diagnosis for this admission?: Yes (4) Hemiparesis affecting right side as late effect of cerebrovascular accident Is this a current diagnosis for this admission?: Yes (5) Cellulitis of right lower extremity Is this a current diagnosis for this admission?: Yes (6) Lymphocytic colitis Is this a current diagnosis for this admission?: Yes (7) Lupus (systemic lupus erythematosus) Qualifiers: Systemic lupus erythematosus type: unspecified Systemic lupus erythematosus organ involvement: unspecified Qualified Code(s): M32.9 - Systemic lupus erythematosus, unspecified Is this a current diagnosis for this admission?: Yes (8) Weakness generalized Is this a current diagnosis for this admission?: Yes - Plan Summary Summary: Patient has been started on Synthroid Repeat thyroid function test in 4 weeks CK within normal limits Aggressive physical therapy No recurrence of GI bleed thus far Last hemoglobin showed stability At this point we are waiting on placement at SNF. Patient did walk with physical therapy who stated that patient was okay for home health. Discussed with tool and production planner who informed me that Adult Protective Services reported it was unsafe for patient to be discharged home due to lack of adequate supervision and patient significant ambulatory dysfunction. Hence pursuing SNF placement at this time. 11/23/2019-continue Synthroid. Remains medically cleared for discharge. Still awaiting insurance authorization for SNF placement. 11/24/2019-patient's external pharmacy rx reviewed shows that patient has been on doxycycline for a few weeks now. Demarcated area of erythema from RLE cellulitis is showing improvement. Will give keflex for about 5 more days and monitor erythema. Check CBC in am to ensure no leukocytosis. Continue Physical therapy. Continue synthroid. Patient still stable and awaiting placement at SNF. 11/25/2019-RLE cellulitis is significantly improving and mostly resolved at this point. Continue Keflex for about 3-4 more days. CBC shows no evidence of leukocytosis. Continue Synthroid. Encourage ambulation. Continue with aggressive physical therapy while waiting for placement at SNF. 11/26/2019-continue Keflex for 2 more days for cellulitis. Vital signs are stable. Continue Synthroid for treatment of hypothyroidism. Recheck TSH in 4 weeks. Remains medically cleared. Continue aggressive physical therapy while awaiting placement at SNF 11/27/2019-continue Keflex for today. Cellulitis been much resolved at this point. Vital signs continue to remain stable and within normal limits. Continue potassium supplementation. Continue Synthroid for hypothyroidism. R emains clinically cleared for discharge. Continue aggressive physical therapy while awaiting SNF placement at [facility] - Time Time Spent with patient: Less than 15 minutes
[2019-11-27] MEDS: POTASSIUM CHLORIDE 10 MEQ TABLET.ER PO SCH ×2 (11:16→17:27)
[2019-11-27] MEDS: POTASSIUM CHLORIDE 20 MEQ PACKET PO SCH (11:26)
[2019-11-27] MEDS: IBUPROFEN 400 MG TABLET PO PRN (14:14)
[2019-11-27] MEDS: FUROSEMIDE 20 MG TABLET PO SCH (17:28)
[2019-11-27] MEDS: CYCLOBENZAPRINE HCL 10 MG TABLET PO PRN (22:01)
[2019-11-27] MEDS: PHARMACY COMMUNICATION ORDER MC SCH (23:01)
[2019-11-27] MEDS ORDERED: TRAZODONE HCL 50 MG TABLET PO PRN (23:22)
[2019-11-27 23:33] LABS: CREATINE KINASE MB 4.45 ng/mL (<4.55); TROPONIN I 0.092 ng/mL
[2019-11-28] MEDS: IBUPROFEN 400 MG TABLET PO PRN (00:14)
[2019-11-28] MEDS: ACETAMINOPHEN 325 MG TABLET PO PRN ×2 (03:22→14:13)
[2019-11-28] MEDS: CEPHALEXIN 500 MG CAPSULE PO SCH (05:28)
[2019-11-28] MEDS: LEVOTHYROXINE SODIUM 0.1 MG TABLET PO SCH (05:28)
[2019-11-28] MEDS: PANTOPRAZOLE SODIUM 40 MG TABLET.DR PO SCH ×2 (05:28→18:01)
[2019-11-28 05:32] LABS: ANION GAP 9 (5-19); BLOOD UREA NITROGEN 10 mg/dL (7-20); CALCIUM 8.4 mg/dL (8.4-10.2); CARBON DIOXIDE 19 mmol/L (22-30); CHLORIDE 107 mmol/L (98-107); CREATINE KINASE 69 U/L (30-135); GLUCOSE 88 mg/dL (75-110); POTASSIUM 4.3 mmol/L (3.6-5.0)
[2019-11-28 05:40] LABS: CREATINE KINASE MB 3.95 ng/mL (<4.55)
[2019-11-28 05:52] LABS: TROPONIN I 0.121 ng/mL
[2019-11-28] MEDS ORDERED: ASPIRIN 81 MG TABLET, CHEWABLE PO ONE (06:30)
[2019-11-28 06:57] LABS: INTERNATIONAL RATION (INR) 1.01; PROTHROMBIN TIME 13.3 SEC (11.4-15.4)
[2019-11-28] MEDS ORDERED: NITROGLYCERIN 0.4 MG/TAB 25 TAB/BOTTLE SL PRN (07:01)
--- NOTE | 2019-11-28 07:26 | EKG REPORT ---
SEVERITY:- ABNORMAL ECG - SINUS TACHYCARDIA LEFT ANTERIOR FASCICULAR BLOCK BORDERLINE R WAVE PROGRESSION, ANTERIOR LEADS : Confirmed by: Javier Hoffman MD 28-Nov-2019 07:25:53
[2019-11-28] MEDS: SUCRALFATE 1 GM TABLET PO SCH ×4 (10:44→21:08)
[2019-11-28] MEDS: POTASSIUM CHLORIDE 10 MEQ TABLET.ER PO SCH ×2 (10:44→18:01)
[2019-11-28] MEDS: HYDROXYCHLOROQUINE SULFATE 200 MG TABLET PO SCH ×2 (10:44→21:08)
[2019-11-28] MEDS: LIDOCAINE 5% (700 MG) TRANSDERMAL ADH..PATCH TP SCH (10:44)
--- NOTE | 2019-11-28 13:36 | PDOC PROGRESS REPORT ---
Subjective Progress Note for:: 11/28/19 Subjective:: Patient complains of bandlike lower chest tightness last night. States is not so much of pain but a band like sensation wrapping around underneath her breasts. Otherwise, patient denies any shortness of breath, GI bleed, melena. Had extensive conversation with patient, patient's daughter and patient's sister regarding patient's long-term medical course. They informed me the patient was meant to be on belimumab weekly however patient is not receiving it. I have asked him to bring in the medication and inform me of the dose so that I can allow her to be taking her home injection while here as we do not have it on formulary and were not informed about this medication before. They will bring it in and notify me. They also informed me that patient's primary laborer tin can was planning on getting an MRI of the brain and potentially a lumbar puncture for evaluation of her cognitive delays to see if her lupus was contributing to this or to see if she has encephalitis and wanted to know if I will be able to get this done while patient is in the hospital. I have informed them patient has a glaring cause of cognitive delays/impairment which he is an underactive thyroid and poorly controlled hypothyroidism with TSH of 22 which needs to be adequately treated even despite low normal free T4 levels. I have informed them that any TSH of over 10 needs to be treated regardless of the free T4 levels and ideally TSH should be less than 4.5 patients were hypothyroid. They also inform me that patient's laborer tin can did not know about her hypothyroidism at the time when they made the plan for MRI and did not know why her Synthroid was discontinued about 2 years ago. They acknowledge that patient looks much more cognizant today and the coloration looks better. I have explained that patient will be treated with Synthroid for about 4 weeks and then TSH will be retested after which dose adjustments will be made. I have explained that I do not plan on doing an MRI at this time and that an LP carries risks and is not indicated at this time especially given patient's vitals, normal white count and low likelihood of encephalitis. Patient and family are agreeable with treating for hypothyroidism and holding off on MRI and LP at this time and only be considering MRI if cognition should start to deteriorate. Reason For Visit: GI BLEED, ACUTE BLOOD LOSS ANEMIA, Physical Exam Vital Signs: Temp Pulse Resp BP Pulse Ox 97.9 F 76 16 108/73 97 11/28/19 11:53 11/28/19 11:53 11/28/19 11:53 11/28/19 11:53 11/28/19 11:53 Intake & Output 11/27/19 11/28/19 11/29/19 06:59 06:59 06:59 Intake Total 1340 1240 Output Total 400 0 Balance 940 1240 Weight 66.1 kg 68.3 kg Results Laboratory Results: 11/25/19 04:34 11/28/19 04:45 11/28/19 04:45 Sodium 135.1 L Potassium 4.3 Chloride 107 Carbon Dioxide 19 L Anion Gap 9 BUN 10 Creatinine 0.83 Est GFR ( Amer) > 60 Glucose 88 Calcium 8.4 11/21/19 11/27/19 11/27/19 04:21 22:45 22:45 Creatine Kinase 70 47 CK-MB (CK-2) 4.45 Troponin I 0.092 11/28/19 11/28/19 11/28/19 04:45 04:45 09:43 Creatine Kinase 69 CK-MB (CK-2) 3.95 Troponin I 0.121 0.108 Impressions: Hip/Pelvis X-Ray 11/20/19 09:46 IMPRESSION: NEGATIVE STUDY OF THE RIGHT HIP. NO EXPLANATION FOR PAIN. Assessment and Plan - Diagnosis (1) Hypothyroidism Qualifiers: Hypothyroidism type: unspecified Qualified Code(s): E03.9 - Hypothyroidism, unspecified Is this a current diagnosis for this admission?: Yes Plan: Patient has a history of hypothyroidism but has stopped taking Synthroid 2 years ago. Hypothyroidism is poorly controlled given elevated TSH of 22 even despite normal free T4 level. T3 is also low. This may be very well accounting for patient's cognitive problems, extreme fatigue, muscle pain, generalized muscle weakness and hyponatremia which have all improved since resuming Synthroid on this admission about 1 wk ago. Continue Synthroid 0.1 mg daily [weight-based] and repeat TSH in 3 weeks (2) Chest pain Qualifiers: Chest pain type: unspecified Qualified Code(s): R07.9 - Chest pain, unspecified Is this a current diagnosis for this admission?: Yes Plan: Started experiencing chest pain last night. Description of bandlike tightness across lower chest. EKG does show some mild worsening of an already poor R wave progression as compared to prior EKGs. Troponin mildly elevated and peaked at 0.12 then down trended. At this time patient is not having any significant tightness. Cardiology consulted for evaluation of this. (3) GI bleed Qualifiers: GI bleed type/associated pathology: melena Qualified Code(s): K92.1 - Melena Is this a current diagnosis for this admission?: Yes Plan: Reported some melena on admission. He received 2 units of blood on admission for hemoglobin of 7.2. EGD and flexible sigmoidoscopy done 10/20/[address] Garza showed bleeding duodenal ulcer which was controlled Patient was evaluated by surgery during this hospitalization to see if need for repeat endoscopy and was deemed that repeat endoscopy was not needed. Hb holding steady and no recurrence of GI bleed throughout hospital course. Protonix twice daily and Carafate Of note patient will need repeat upper endoscopy in about 1 week [6 weeks from last EGD] to reevaluate healing of the peptic ulcer. (4) Hyponatremia Is this a current diagnosis for this admission?: Yes Plan: I suspect this secondary to uncontrolled hypothyroidism Initially persisted at 128 even despite fluids but has been showing improvement only after Synthroid was started. (5) Hemiparesis affecting right side as late effect of cerebrovascular accident Is this a current diagnosis for this admission?: Yes Plan: Chronic deficits at baseline per patient I have discussed with patient and family risks and benefits of resuming aspirin given a CVA history complicated with recent bleeding duodenal ulcer and they would like for aspirin to be restarted at this time. Aspirin 81 mg daily resumed. (6) Cellulitis of right lower extremity Is this a current diagnosis for this admission?: Yes Plan: Completed several days of outpatient and inpatient antibiotic treatment with doxycycline and a few days of Keflex. No need for further antibiotics at this time as redness is almost fully resolved. (7) Open leg wound Qualifiers: Encounter type: initial encounter Laterality: unspecified laterality Qualified Code(s): S81.809A - Unspecified open wound, unspecified lower leg, initial encounter Is this a current diagnosis for this admission?: Yes Plan: Patient has multiple wounds on right and left barajas which family reports is from falls. Most of the wounds are now scabbing over. However, the lower wound in the right barajas does appear somewhat like pyoderma gangrenosum and family states that ulcer is relatively new. I will start betamethasone ointment to that particular ulcer while continuing her low-dose prednisone for lupus. Continue wound care and dressing daily. (8) Lupus (systemic lupus erythematosus) Qualifiers: Systemic lupus erythematosus type: unspecified Systemic lupus erythematosus organ involvement: unspecified Qualified Code(s): M32.9 - Systemic lupus erythematosus, unspecified Is this a current diagnosis for this admission?: Yes Plan: No evidence of acute flare/polyarthralgias at this time. Continue Plaquenil and resume low-dose prednisone now no evidence of bleeding. If GI bleed recurs, prednisone will have to be stopped. Patient's daughter will bring in patient's belimumab which he states the patient takes weekly. Family informs me that patient was taken off tacrolimus by her laborer tin can to allow full healing of her leg wounds and that there was plan for MRI brain to see if lupus was playing a role in cognitive slowing. I have explained to family that I do not plan to obtain an MRI at this time and would prefer to treat her uncontrolled hypothyroidism for several weeks and control this before revisiting the need for MRI if no improvement with her cognition especially as cognition has shown some improvement with resumption of Synthroid. Patient and patient's family are agreeable to this plan. (9) Weakness generalized Is this a current diagnosis for this admission?: Yes Plan: Associated with polyarthralgias, and physical debility and inadequately controlled hypothyroidism I have evaluated right hip pain with x-ray which shows no evidence of any fracture or significant arthritis in that joint to explain her pain, CK was normal. Patient will ultimately need adequate cntrol of hypothyroidism for which she has been reinitiated on Synthroid Recommended for SNF and awaiting placement at this time. - Plan Summary Summary: Patient has been started on Synthroid Repeat thyroid function test in 4 weeks CK within normal limits Aggressive physical therapy No recurrence of GI bleed thus far Last hemoglobin showed stability Patient has ultimately been awaiting placement at SNF for the last several days due to problems with authorization from insurance. Patient will still likely be able to go to SNF once placed even despite com plaint of chest tightness, pending cardiology evaluation. - Time Time Spent with patient: 35 or more minutes
--- NOTE | 2019-11-28 13:58 | EKG REPORT ---
SEVERITY:- ABNORMAL ECG - SINUS RHYTHM LEFT ANTERIOR FASCICULAR BLOCK : Confirmed by: Javier Hoffman MD 28-Nov-2019 13:57:04
[2019-11-28] MEDS: PREDNISONE 5 MG TABLET PO SCH (14:14)
[2019-11-28] MEDS: BETAMETHASONE VALERATE 0.1% TP SCH ×2 (14:14→18:02)
--- NOTE | 2019-11-28 16:12 | PDOC CONSULTATION ---
Consultation Consult Date: 11/28/19 Attending physician:: JEFFERSON GIVENS Provider Consulted: MUKESH YANEZ Consult reason:: Chest pain History of Present Illness Admission Date/PCP: 11/18/19 10:21 LILLIANA MEJIA MD Patient complains of: Chest pain History of Present Illness: AGUSTIN ORTEGA is a 54 year old female With medical history significant for rheumatoid arthritis, lupus erythematosus, GI bleed and blood loss anemia as well as hypothyroidism. Patient has been been managed for these conditions. Endoscopy had been performed. Hemoglobin has been holding steady. [facility] in [facility] facility was anticipated. Discharge planning was being pursued. There is no prior mention of coronary artery disease. There is remote history of cerebrovascular accident with mild deficits. Patient is a non-smoker. There is no strong family history of coronary artery disease Patient reportedly had an episode of chest pain earlier which was bandlike and left lower chest. At the time of my interview when I asked the patient to descr gabriela the pain she does not remember much of the detail except that it was very transient. Patient does not usually have effort related chest pain. She does not recall any associated symptoms with the chest pain episode. Cardiac biomarkers were indeterminate-troponin. EKG was nondiagnostic for myocardial ischemia. It showed sinus rhythm with left anterior fascicular block and nonspecific ST-T changes. Past Medical History Cardiac Medical History: Reports: Congestive Heart Failure, DVT, Hypertension Denies: Coronary Artery Disease, Myocardial Infarction Pulmonary Medical History: Denies: Asthma, Bronchitis, Chronic Obstructive Pulmonary Disease (COPD), Pneumonia Neurological Medical History: Denies: Seizures Malignancy Medical History: Reports: None GI Medical History: Reports: None Musculoskeltal Medical History: Reports: Arthritis - LUPUS Skin Medical History: Reports: Other - Chronic wounds on legs Hematology: Reports: Anemia Past Surgical History Past Surgical History: Reports: Section, Hysterectomy, Orthopedic Surgery - TENDON REPAIR RIGHT WRIST Social History Smoking Status: Current Every Day Smoker Frequency of Alcohol Use: Social Hx Recreational Drug Use: No Drugs: None Hx Prescription Drug Abuse: No - Advance Directive Resuscitation Status: Full Code Family History Family History: CAD, CVA Parental Family History Reviewed: No - No familial illnesses Children Family History Reviewed: NA Sibling(s) Family History Reviewed.: NA Medication/Allergy Home Medications: Aspirin [Ecotrin 81 mg EC Tablet] 81 mg PO DAILY 10/19/19 Duloxetine HCl [Cymbalta 30 mg Capsule.dr] 60 mg PO QHS 10/19/19 Ergocalciferol (Vitamin D2) [Drisdol 50,000 unit (1.25MG) Capsule] 50,000 unit PO WE@1000 10/19/19 Furosemide [Lasix 20 mg Tablet] 20 mg PO QPM 10/19/19 Furosemide [Lasix 20 mg Tablet] 40 mg PO QAM 10/19/19 Potassium Chloride [Klor-Con 10 Meq Tablet ER] 30 meq PO DAILY 10/19/19 Pantoprazole Sodium [Protonix [address] Tablet] 40 mg PO BID@0600,1700 #60 tablet.dr 10/22/19 Sucralfate [Carafate 1 gm Tablet] 1 gm PO ACHS #120 tablet 10/22/19 Acetaminophen [Tylenol] 325 mg PO DAILYP PRN 11/18/19 Calcium Carbonate [Tums Chewable 500 mg Tab.chew] 500 mg PO DAILYP PRN 11/18/19 Doxycycline Hyclate [Vibramycin] 100 mg PO Q12 11/18/19 Hydroxychloroquine Sulfate [Plaquenil 200 mg Tablet] 200 mg PO MOTUWETHFRSA@1000,22 11/27/19 Hydroxychloroquine Sulfate [Plaquenil 200 mg Tablet] 200 mg PO LAMAS 11/27/19 Allergies/Adverse Reactions: codeine Adverse Reaction (Verified 11/15/19 15:55) Nausea Sulfa (Sulfonamide Antibiotics) Adverse Reaction (Verified 11/15/19 15:55) Nausea Review of Systems Cardiovascular: PRESENT: chest pain Respiratory: ABSENT: cough, hemoptysis Gastrointestinal: ABSENT: abdominal pain, constipation, diarrhea, hematemesis, hematochezia, nausea, vomiting Neurological: PRESENT: as per HPI Psychiatric: PRESENT: as per HPI Physical Exam Vital Signs: Temp Pulse Resp BP Pulse Ox 97.9 F 106 H 16 108/73 97 11/28/19 11:53 11/28/19 14:00 11/28/19 11:53 11/28/19 11:53 11/28/19 11:53 Intake & Output 11/27/19 11/28/19 11/29/19 06:59 06:59 06:59 Intake Total 1340 1240 300 Output Total 400 0 Balance 940 1240 300 Weight 66.1 kg 68.3 kg General appearance: PRESENT: obese Head exam: PRESENT: atraumatic, normocephalic Eye exam: PRESENT: EOMI Respiratory exam: PRESENT: clear to auscultation janis, crackles, decreased breath sounds, symmetrical, unlabored Cardiovascular exam: PRESENT: RRR, +S1, +S2 Pulses: PRESENT: normal radial pulses GI/Abdominal exam: PRESENT: soft Rectal exam: PRESENT: deferred Musculoskeletal exam: PRESENT: normal inspection Neurological exam: PRESENT: alert, awake, oriented to person, oriented to place Psychiatric exam: PRESENT: appropriate affect Skin exam: PRESENT: abrasion, normal color Results Laboratory Results: 11/25/19 04:34 11/28/19 04:45 11/28/19 04:45 Sodium 135.1 L Potassium 4.3 Chloride 107 Carbon Dioxide 19 L Anion Gap 9 BUN 10 Creatinine 0.83 Est GFR ( Amer) > 60 Glucose 88 Calcium 8.4 11/21/19 11/27/19 11/27/19 04:21 22:45 22:45 Creatine Kinase 70 47 CK-MB (CK-2) 4.45 Troponin I 0.092 11/28/19 11/28/19 11/28/19 04:45 04:45 09:43 Creatine Kinase 69 CK-MB (CK-2) 3.95 Troponin I 0.121 0.108 EKG Comments: Sinus rhythm with left anterior fascicular block. No convincing evidence of myocardial injury or ischemia. QTC is 477 ms. Impressions: Hip/Pelvis X-Ray 11/20/19 09:46 IMPRESSION: NEGATIVE STUDY OF THE RIGHT HIP. NO EXPLANATION FOR PAIN. Assessment & Plan - Diagnosis (1) Hypothyroidism Qualifiers: Hypothyroidism type: unspecified Qualified Code(s): E03.9 - Hypothyroidism, unspecified Is this a current diagnosis for this admission?: Yes Plan: This is being managed. Treatment of the condition with repeat TSH is being recommended (2) Chest pain Qualifiers: Chest pain type: unspecified Qualified Code(s): R07.9 - Chest pain, unspecified Is this a current diagnosis for this admission?: Yes Plan: Description of symptoms is quite atypical. Presently cardiac biomarkers are indeterminate. EKG with not diagnostic changes for myocardial ischemia Patient in need has risk factors for coronary artery disease including a chronic inflammatory condition as well as lupus and rheumatoid arthritis. This can sometimes give rise to focal coronary stenosis. However the symptoms are much more pronounced usually. The symptoms continue to persist she will need further work-up. Given resolution of symptoms and indeterminate troponins, would not recommend pursuing additional testing at this point We will arrange for outpatient follow-up and evaluation with consideration of additional diagnostic imaging as needed. This was discussed with the patient. (3) GI bleed Qualifiers: GI bleed type/associated pathology: melena Qualified Code(s): K92.1 - Melena Is this a current diagnosis for this admission?: Yes Plan: This has been deemed stable. Hemoglobin is stable. Patient does not report any ongoing bleeding.
[2019-11-28] MEDS: FUROSEMIDE 20 MG TABLET PO SCH (18:01)
[2019-11-28] MEDS: DULOXETINE HCL 30 MG CAPSULE.DR PO SCH (21:08)
[2019-11-28] MEDS: PHARMACY COMMUNICATION ORDER MC SCH (22:44)
[2019-11-29] MEDS: ACETAMINOPHEN 325 MG TABLET PO PRN ×3 (03:56→20:43)
[2019-11-29] MEDS: LEVOTHYROXINE SODIUM 0.1 MG TABLET PO SCH (05:18)
[2019-11-29] MEDS: PANTOPRAZOLE SODIUM 40 MG TABLET.DR PO SCH ×2 (05:18→16:31)
[2019-11-29] MEDS: ERGOCALCIFEROL (VITAMIN D2) 50000 UNIT (1.25 MG) CAPSULE PO SCH (10:24)
[2019-11-29] MEDS: PREDNISONE 5 MG TABLET PO SCH (10:25)
[2019-11-29] MEDS: POTASSIUM CHLORIDE 10 MEQ TABLET.ER PO SCH ×2 (10:25→16:59)
[2019-11-29] MEDS: SUCRALFATE 1 GM TABLET PO SCH ×4 (10:25→22:24)
[2019-11-29] MEDS: LIDOCAINE 5% (700 MG) TRANSDERMAL ADH..PATCH TP SCH (10:29)
[2019-11-29] MEDS: HYDROXYCHLOROQUINE SULFATE 200 MG TABLET PO SCH ×2 (10:29→22:27)
[2019-11-29] MEDS: ASPIRIN 81 MG TABLET, CHEWABLE PO SCH ×2 (10:30→10:31)
[2019-11-29] MEDS: BETAMETHASONE VALERATE 0.1% TP SCH ×2 (10:31→17:01)
--- NOTE | 2019-11-29 15:36 | PDOC PROGRESS REPORT ---
Subjective Progress Note for:: 11/29/19 Subjective:: Patient seen and examined. Daughter and sister at bedside. She is tolerating diet very well. She complains of her right shoulder pain that is causing the whole right upper extremity to be swollen. Reason For Visit: GI BLEED, ACUTE BLOOD LOSS ANEMIA, Physical Exam Vital Signs: Temp Pulse Resp BP Pulse Ox 98.2 F 114 H 16 130/88 H 98 11/29/19 11:32 11/29/19 11:32 11/29/19 11:32 11/29/19 11:32 11/29/19 11:32 Intake & Output 11/28/19 11/29/19 11/30/19 06:59 06:59 06:59 Intake Total 1240 500 Output Total 0 Balance 1240 500 Weight 150 lb 9.211 oz 149 lb 7.574 oz Exam: Patient is no acute distress Alert oriented to time place person No anxiety or depression Head: atraumatic normocephalic Pupils: are equal reactive Neck: is supple and trachea is central no lymphadenopathy No pharyngeal erythema or exudates Heart: Regular rate and rhythm, no peripheral edema Lungs: clear to auscul, no respiratory distress Abdomen: nontender nondistended Neurological exam: unremarkable Musculoskeletal: Right upper extremity edema No suicidal or homicidal ideation Results Laboratory Results: 11/25/19 04:34 11/28/19 04:45 11/21/19 11/27/19 11/27/19 04:21 22:45 22:45 Creatine Kinase 70 47 CK-MB (CK-2) 4.45 Troponin I 0.092 11/28/19 11/28/19 11/28/19 04:45 04:45 09:43 Creatine Kinase 69 CK-MB (CK-2) 3.95 Troponin I 0.121 0.108 Impressions: Hip/Pelvis X-Ray 11/20/19 09:46 IMPRESSION: NEGATIVE STUDY OF THE RIGHT HIP. NO EXPLANATION FOR PAIN. Assessment and Plan - Diagnosis (1) Chest pain Qualifiers: Chest pain type: unspecified Qualified Code(s): R07.9 - Chest pain, unspecified Is this a current diagnosis for this admission?: Yes Plan: Description of bandlike tightness across lower chest. EKG does show some mild worsening of an already poor R wave progression as compared to prior EKGs. Troponin mildly elevated and peaked at 0.12 then down trended. At this time patient is not having any significant tightness. Cardiology consulted and recommended outpatient follow-up. (2) Hypothyroidism Qualifiers: Hypothyroidism type: unspecified Qualified Code(s): E03.9 - Hypothyroidism, unspecified Is this a current diagnosis for this admission?: Yes Plan: Patient has a history of hypothyroidism but has stopped taking Synthroid 2 years ago. Hypothyroidism is poorly controlled given elevated TSH of 22 even despite normal free T4 level. T3 is also low. This may be very well accounting for patient's cognitive problems, extreme fatigue, muscle pain, generalized muscle weakness and hyponatremia which have all improved since resuming Synthroid on this admission. Continue Synthroid 0.1 mg daily [weight-based] and repeat TSH in 3 weeks (3) GI bleed Qualifiers: GI bleed type/associated pathology: melena Qualified Code(s): K92.1 - Melena Is this a current diagnosis for this admission?: Yes Plan: Reported some melena on admission. He received 2 units of blood on admission for hemoglobin of 7.2. EGD and flexible sigmoidoscopy done 10/20/[address] Garza showed bleeding duodenal ulcer which was controlled Patient was evaluated by surgery during this hospitalization to see if need for repeat endoscopy and was deemed that repeat endoscopy was not needed. Hb holding steady and no recurrence of GI bleed throughout hospital course. Protonix twice daily and Carafate patient will need follow-up outpatient (4) Hemiparesis affecting right side as late effect of cerebrovascular accident Is this a current diagnosis for this admission?: Yes Plan: Chronic deficits at baseline per patient Dr. Jerez have discussed with patient and family risks and benefits of resuming aspirin given a CVA history complicated with recent bleeding duodenal ulcer and they would like for aspirin to be restarted at this time. Aspirin 81 mg daily resumed. (5) Hyponatremia Is this a current diagnosis for this admission?: Yes Plan: Possibly secondary to uncontrolled hypothyroidism Initially persisted at 128 even despite fluids but has been showing improvement only after Synthroid was started. (6) Cellulitis of right lower extremity Is this a current diagnosis for this admission?: Yes Plan: Completed several days of outpatient and inpatient antibiotic treatment with doxycycline and a few days of Keflex. No need for further antibiotics at this time as redness is almost fully resolved. (7) Open leg wound Qualifiers: Encounter type: initial encounter Laterality: unspecified laterality Qualified Code(s): S81.809A - Unspecified open wound, unspecified lower leg, in itial encounter Is this a current diagnosis for this admission?: Yes Plan: Patient has multiple wounds on right and left barajas which family reports is from falls. Most of the wounds are now scabbing over. Dr. Jerez started betamethasone ointment to that particular ulcer while continuing her low-dose prednisone for lupus. Continue wound care and dressing daily. (8) Lupus (systemic lupus erythematosus) Qualifiers: Systemic lupus erythematosus type: unspecified Systemic lupus erythematosus organ involvement: unspecified Qualified Code(s): M32.9 - Systemic lupus erythematosus, unspecified Is this a current diagnosis for this admission?: Yes Plan: No evidence of acute flare/polyarthralgias at this time. Continue Plaquenil and continue low-dose prednisone now no evidence of bleeding. If GI bleed recurs, prednisone will have to be stopped. it is reported that patient's daughter will bring in patient's belimumab which he states the patient takes weekly. Family informs Dr. Jerez that patient was taken off tacrolimus by her can washer to allow full healing of her leg wounds and that there was plan for MRI brain to see if lupus was playing a role in cognitive slowing. He has discussed with the family that he will not obtain an MRI at this time and would prefer to treat her uncontrolled hypothyroidism for several weeks and control this before revisiting the need for MRI if no improvement with her cognition especially as cognition has shown some improvement with resumption of Synthroid. Patient and patient's family are agreeable to this plan. (9) Weakness generalized Is this a current diagnosis for this admission?: Yes Plan: Associated with polyarthralgias, and physical debility and inadequately c ontrolled hypothyroidism right hip pain; x-ray which shows no evidence of any fracture or significant arthritis in that joint to explain her pain, CK was normal. Patient will ultimately need adequate cntrol of hypothyroidism for which she has been reinitiated on Synthroid Recommended for SNF and awaiting placement (10) Right shoulder pain Is this a current diagnosis for this admission?: Yes Plan: Patient says that she has shoulder fracture since August and was evaluated outpatient. Now she claims that her right upper extremity is swollen and wants orthopedic surgeon evaluation.
[2019-11-29] MEDS: FUROSEMIDE 20 MG TABLET PO SCH (16:59)
[2019-11-29] MEDS ORDERED: BENLYSTA SUBCUT SCH (19:00)
[2019-11-29] MEDS: DULOXETINE HCL 30 MG CAPSULE.DR PO SCH (22:24)
[2019-11-29] MEDS: PHARMACY COMMUNICATION ORDER MC SCH (22:25)
[2019-11-30] MEDS: PANTOPRAZOLE SODIUM 40 MG TABLET.DR PO SCH ×2 (05:25→16:20)
[2019-11-30] MEDS: ACETAMINOPHEN 325 MG TABLET PO PRN ×2 (05:25→16:20)
[2019-11-30] MEDS: LEVOTHYROXINE SODIUM 0.1 MG TABLET PO SCH (05:25)
[2019-11-30] MEDS: SUCRALFATE 1 GM TABLET PO SCH ×3 (08:12→16:20)
[2019-11-30] MEDS: ASPIRIN 81 MG TABLET, CHEWABLE PO SCH ×2 (10:19→10:20)
[2019-11-30] MEDS: POTASSIUM CHLORIDE 10 MEQ TABLET.ER PO SCH ×2 (10:19→17:08)
[2019-11-30] MEDS: LIDOCAINE 5% (700 MG) TRANSDERMAL ADH..PATCH TP SCH (10:19)
[2019-11-30] MEDS: PREDNISONE 5 MG TABLET PO SCH (10:19)
[2019-11-30] MEDS: BETAMETHASONE VALERATE 0.1% TP SCH ×2 (10:20→17:09)
[2019-11-30] MEDS: HYDROXYCHLOROQUINE SULFATE 200 MG TABLET PO SCH (10:23)
--- NOTE | 2019-11-30 14:38 | PDOC PROGRESS REPORT ---
Subjective Progress Note for:: 11/30/19 Subjective:: Patient seen and examined. Daughter and sister at bedside. She is tolerating diet very well. She complains of her right shoulder pain that is causing the whole right upper extremity to be swollen. Reason For Visit: GI BLEED, ACUTE BLOOD LOSS ANEMIA, Physical Exam Vital Signs: Temp Pulse Resp BP Pulse Ox 97.8 F 109 H 18 148/89 H 97 11/30/19 11:23 11/30/19 11:23 11/30/19 11:23 11/30/19 11:23 11/30/19 11:23 Intake & Output 11/29/19 11/30/19 12/01/19 06:59 06:59 06:59 Intake Total 500 998 Output Total 900 Balance 500 98 Weight 149 lb 7.574 oz 145 lb 1.027 oz Exam: Patient is no acute distress Alert oriented to time place person No anxiety or depression Head: atraumatic normocephalic Pupils: are equal reactive Heart: Regular rate and rhythm Lungs: clear no distress Musculoskeletal: Limited range of movement and pain in the right upper extremity Abdomen: nontender nondistended Neurological exam: unremarkable Results Laboratory Results: 11/25/19 04:34 11/28/19 04:45 11/21/19 11/27/19 11/27/19 04:21 22:45 22:45 Creatine Kinase 70 47 CK-MB (CK-2) 4.45 Troponin I 0.092 11/28/19 11/28/19 11/28/19 04:45 04:45 09:43 Creatine Kinase 69 CK-MB (CK-2) 3.95 Troponin I 0.121 0.108 Impressions: Hip/Pelvis X-Ray 11/20/19 09:46 IMPRESSION: NEGATIVE STUDY OF THE RIGHT HIP. NO EXPLANATION FOR PAIN. Assessment and Plan - Diagnosis (1) Chest pain Qualifiers: Chest pain type: unspecified Qualified Code(s): R07.9 - Chest pain, unspecified Is this a current diagnosis for this admission?: Yes (2) Hypothyroidism Qualifiers: Hypothyroidism type: unspecified Qualified Code(s): E03.9 - Hypothyroidism, unspecified Is this a current diagnosis for this admission?: Yes (3) GI bleed Qualifiers: GI bleed type/associated pathology: melena Qualified Code(s): K92.1 - Melena Is this a current diagnosis for this admission?: Yes (4) Hemiparesis affecting right side as late effect of cerebrovascular accident Is this a current diagnosis for this admission?: Yes (5) Hyponatremia Is this a current diagnosis for this admission?: Yes (6) Cellulitis of right lower extremity Is this a current diagnosis for this admission?: Yes (7) Open leg wound Qualifiers: Encounter type: initial encounter Laterality: unspecified laterality Qualified Code(s): S81.809A - Unspecified open wound, unspecified lower leg, initial encounter Is this a current diagnosis for this admission?: Yes (8) Lupus (systemic lupus erythematosus) Qualifiers: Systemic lupus erythematosus type: unspecified Systemic lupus erythematosus organ involvement: unspecified Qualified Code(s): M32.9 - Systemic lupus erythematosus, unspecified Is this a current diagnosis for this admission?: Yes (9) Weakness generalized Is this a current diagnosis for this admission?: Yes (10) Right shoulder pain Is this a current diagnosis for this admission?: Yes
--- NOTE | 2019-11-30 15:19 | PDOC DISCHARGE SUMMARY ---
Impression - Admit/DC Date/PCP Admission Date/Primary Care Provider: 11/18/19 10:21 LILLIANA MEJIA MD Discharge Date: 11/30/19 - Discharge Diagnosis (1) Chest pain Is this a current diagnosis for this admission?: Yes (2) Hypothyroidism Is this a current diagnosis for this admission?: Yes (3) GI bleed Is this a current diagnosis for this admission?: Yes (4) Hemiparesis affecting right side as late effect of cerebrovascular accident Is this a current diagnosis for this admission?: Yes (5) Hyponatremia Is this a current diagnosis for this admission?: Yes (6) Cellulitis of right lower extremity Is this a current diagnosis for this admission?: Yes (7) Open leg wound Is this a current diagnosis for this admission?: Yes (8) Lupus (systemic lupus erythematosus) Is this a current diagnosis for this admission?: Yes (9) Weakness generalized Is this a current diagnosis for this admission?: Yes (10) Right shoulder pain Is this a current diagnosis for this admission?: Yes - Additional Information Resuscitation Status: Full Code Referrals: LILLIANA MEJIA MD [Primary Care Provider] - 11/29/19 1:30 pm MUKESH YANEZ MD [ACTIVE STAFF] - Home Medications: Aspirin [Ecotrin 81 mg EC Tablet] 81 mg PO DAILY 10/19/19 Duloxetine HCl [Cymbalta 30 mg Capsule.dr] 60 mg PO QHS 10/19/19 Ergocalciferol (Vitamin D2) [Drisdol 50,000 unit (1.25MG) Capsule] 50,000 unit PO WE@1000 10/19/19 Furosemide [Lasix 20 mg Tablet] 20 mg PO QPM 10/19/19 Furosemide [Lasix 20 mg Tablet] 40 mg PO QAM 10/19/19 Potassium Chloride [Klor-Con 10 Meq Tablet ER] 30 meq PO DAILY 10/19/19 Pantoprazole Sodium [Protonix [address] Tablet] 40 mg PO BID@0600,1700 #60 tablet.dr 10/22/19 Sucralfate [Carafate 1 gm Tablet] 1 gm PO ACHS #120 tablet 10/22/19 Acetaminophen [Tylenol] 325 mg PO DAILYP PRN 11/18/19 Calcium Carbonate [Tums Chewable 500 mg Tab.chew] 500 mg PO DAILYP PRN 11/18/19 Doxycycline Hyclate [Vibramycin] 100 mg PO Q12 11/18/19 Hydroxychloroquine Sulfate [Plaquenil 200 mg Tablet] 200 mg PO MOTUWETHFRSA@1000,22 11/27/19 Hydroxychloroquine Sulfate [Plaquenil 200 mg Tablet] 200 mg PO LAMAS 11/27/19 History of Present Illiness History of Present Illness: AGUSTIN ORTEGA is a 54 year old female who presents with complaints of 2 weeks of back/shoulder pain, BRBPR, severe generalized fatigue and weakness. Patient found have a significant drop in her hemoglobin from 8 down to 7.2. She has a history of recurrent GI bleeds in the past due to lymphocytic colitis and she has had multiple endoscopies per patient. It does not appear that she has ever been checked for Helicobacter pylori per records. Previous upper endoscopy revealed duodenal ulcer. General surgery was consulted by ED on admission here, they recommended NG tube to look for upper GI bleeding, only pink-tinged mostly clear liquid came out of NG tube and this was removed. They deemed the patient did not need emergent endoscopy and requested she be put on IV Protonix drip. Patient was transfused 2 units PRBC on admission. Of note, patient also has multiple wounds on both legs as well as hematomas. She thinks that she takes Xarelto but this is not in the records, only aspirin is listed in home medications. She states she has a history of lower extremity DVT but was recently checked with PV[facility] which was negative. She has chronic lupus that is typically treated with immunosuppressive medications including 5 mg prednisone daily and belimumab. 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 Hospital Course Hospital Course: (1) Chest pain Description of bandlike tightness across lower chest. EKG does show some mild worsening of an already poor R wave progression as compared to prior EKGs. Troponin mildly elevated and peaked at 0.12 then down trended. At this time patient is not having any significant tightness. Cardiology consulted and recommended outpatient follow-up. (2) Hypothyroidism Patient has a history of hypothyroidism but has stopped taking Synthroid 2 years ago. Hypothyroidism is poorly controlled given elevated TSH of 22 even despite normal free T4 level. T3 is also low. This may be very well accounting for patient's cognitive problems, extreme fatigue, muscle pain, generalized muscle weakness and hyponatremia which have all improved since resuming Synthroid on this admission. Continue Synthroid 0.1 mg daily [weight-based] and repeat TSH in 3 weeks (3) GI bleed Reported some melena on admission. He received 2 units of blood on admission for hemoglobin of 7.2. EGD and flexible sigmoidoscopy done 10/20/[address] Garza showed bleeding du odenal ulcer which was controlled Patient was evaluated by surgery during this hospitalization to see if need for repeat endoscopy and was deemed that repeat endoscopy was not needed. Hb holding steady and no recurrence of GI bleed throughout hospital course. Protonix twice daily and Carafate patient will need follow-up outpatient (4) Hemiparesis affecting right side as late effect of cerebrovascular accident Chronic deficits at baseline per patient Dr. Jerez have discussed with patient and family risks and benefits of resuming aspirin given a CVA history complicated with recent bleeding duodenal ulcer and they would like for aspirin to be restarted at this time. Aspirin 81 mg daily resumed. (5) Hyponatremia Possibly secondary to uncontrolled hypothyroidism Initially persisted at 128 even despite fluids but has been showing improvement only after Synthroid was started. (6) Cellulitis of right lower extremity Completed several days of outpatient and inpatient antibiotic treatment with doxycycline and a few days of Keflex. No need for further antibiotics at this time as redness is almost fully resolved. (7) Open leg wound Patient has multiple wounds on right and left barajas which family reports is from falls. Most of the wounds are now scabbing over. Dr. Jerez started betamethasone ointment to that particular ulcer while continuing her low-dose prednisone for lupus. Continue wound care and dressing daily. (8) Lupus (systemic lupus erythematosus) No evidence of acute flare/polyarthralgias at this time. Continue Plaquenil and continue low-dose prednisone now no evidence of bleeding. If GI bleed recurs, prednisone will have to be stopped. it is reported that patient's daughter will bring in patient's belimumab which he states the patient takes weekly. Family informs Dr. Jerez that patient was taken off tacrolimus by her multimedia manager to allow full healing of her leg wounds and that there was plan for MRI brain to see if lupus was playing a role in cognitive slowing. He has discussed with the family that he will not obtain an MRI at this time and would prefer to treat her uncontrolled hypothyroidism for several weeks and control this before revisiting the need for MRI if no improvement with her cognition especially as cognition has shown some improvement with resumption of Synthroid. Patient and patient's family are agreeable to this plan. (9) Weakness generalized Associated with polyarthralgias, and physical debility and inadequately controlled hypothyroidism right hip pain; x-ray which shows no evidence of any fracture or significant arthritis in that joint to explain her pain, CK was normal. Patient will ultimately need adequate cntrol of hypothyroidism for which she has been reinitiated on Synthroid Recommended for SNF and awaiting placement (10) Right shoulder pain Patient says that she has shoulder fracture since August and was evaluated outpatient. This can be evaluated with orthopedic surgery outpatient. Patient was accepted for rehab today. She is stable for discharge. Physical Exam Vital Signs: Temp Pulse Resp BP Pulse Ox 97.8 F 119 H 18 148/89 H 97 11/30/19 11:23 11/30/19 14:00 11/30/19 11:23 11/30/19 11:23 11/30/19 11:23 Intake & Output 11/29/19 11/30/19 12/01/19 06:59 06:59 06:59 Intake Total 500 998 720 Output Total 900 300 Balance 500 98 420 Weight 149 lb 7.574 oz 145 lb 1.027 oz Exam: Patient is no acute distress Alert oriented to time place person No anxiety or depression Head: atraumatic normocephalic Pupils: are equal reactive Heart: Regular rate and rhythm Lungs: clear no distress Musculoskeletal: Limited range of movement and pain in the right upper extremity Abdomen: nontender nondistended Neurological exam: unremarkable Results Laboratory Results: WBC 6.0 10^3/uL (4.0-10.5) 11/25/19 04:34 RBC 3.12 10^6/uL (3.72-5.28) L 11/25/19 04:34 Hgb 9.9 g/dL (12.0-15.5) L 11/25/19 04:34 Hct 29.1 % (36.0-47.0) L 11/25/19 04:34 MCV 93 fl (80-97) 11/25/19 04:34 MCH 31.8 pg (27.0-33.4) 11/25/19 04:34 MCHC 34.1 g/dL (32.0-36.0) 11/25/19 04:34 RDW 17.5 % (11.5-14.0) H 11/25/19 04:34 Plt Count 325 10^3/uL (150-450) 11/25/19 04:34 Lymph % (Auto) Not Reportable 11/25/19 04:34 Arthur % (Auto) Not Reportable 11/25/19 04:34 Eos % (Auto) Not Reportable 11/25/19 04:34 Baso % (Auto) Not Reportable 11/25/19 04:34 Absolute Neuts (auto) Not Reportable 11/25/19 04:34 Absolute Lymphs (auto) Not Reportable 11/25/19 04:34 Absolute Monos (auto) Not Reportable 11/25/19 04:34 Absolute Eos (auto) Not Reportable 11/25/19 04:34 Absolute Basos (auto) Not Reportable 11/25/19 04:34 Total Counted 100 11/25/19 04:34 Seg Neutrophils % Not Reportable 11/25/19 04:34 Seg Neuts % (Manual) 81 % (42-78) H 11/25/19 04:34 Band Neutrophils % 3 % (3-5) 11/21/19 04:21 Lymphocytes % (Manual) 7 % (13-45) L 11/25/19 04:34 Monocytes % (Manual) 12 % (3-13) 11/25/19 04:34 Eosinophils % (Manual) 0 % (0-6) 11/25/19 04:34 Basophils % (Manual) 0 % (0-2) 11/25/19 04:34 Myelocytes % 2 % (0) H 11/21/19 04:21 Abs Neuts (Manual) 4.9 10^3/uL (1.7-8.2) 11/25/19 04:34 Abs Lymphs (Manual) 0.4 10^3/uL (0.5-4.7) L 11/25/19 04:34 Abs Monocytes (Manual) 0.7 10^3/uL (0.1-1.4) 11/25/19 04:34 Absolute Eos (Manual) 0.0 10^3/uL (0.0-0.6) 11/25/19 04:34 Abs Basophils (Manual) 0.0 10^3/uL (0.0-0.2) 11/25/19 04:34 Toxic Granulation 1+ 11/20/19 04:18 Toxic Vacuolation PRESENT 11/18/19 05:09 Platelet Comment ADEQUATE 11/25/19 04:34 Polychromasia 1+ 11/21/19 04:21 Poikilocytosis 1+ 11/20/19 04:18 Anisocytosis 1+ 11/25/19 04:34 Tear Drop Cells SLIGHT 11/20/19 04:18 Ovalocytes SLIGHT 11/20/19 04:18 ESR 62 mm/hr (0-30) H 11/27/19 22:45 PT 13.3 SEC (11.4-15.4) 11/28/19 06:25 INR 1.01 11/28/19 06:25 Sodium 135.1 mmol/L (137-145) L 11/28/19 04:45 Potassium 4.3 mmol/L (3.6-5.0) 11/28/19 04:45 Chloride 107 mmol/L (98-107) 11/28/19 04:45 Carbon Dioxide 19 mmol/L (22-30) L 11/28/19 04:45 Anion Gap 9 (5-19) 11/28/19 04:45 BUN 10 mg/dL (7-20) 11/28/19 04:45 Creatinine 0.83 mg/dL (0.52-1.25) 11/28/19 04:45 Est GFR ( Amer) > 60 (>60) 11/28/19 04:45 Est GFR (Non-Af Amer) Cancelled 11/18/19 05:09 Est GFR (MDRD) Non-Af > 60 (>60) 11/28/19 04:45 Glucose 88 mg/dL (75-110) 11/28/19 04:45 POC Glucose 75 mg/dL (70-110) 11/21/19 05:53 Calcium 8.4 mg/dL (8.4-10.2) 11/28/19 04:45 Total Bilirubin 2.4 mg/dL (0.2-1.3) H 11/18/19 05:37 Direct Bilirubin 1.8 mg/dL (0.0-0.4) H 11/18/19 05:37 Neonat Total Bilirubin Not Reportable 11/18/19 05:37 Neonat Direct Bilirubin Not Reportable 11/18/19 05:37 Neonat Indirect Bili Not Reportable 11/18/19 05:37 AST 110 U/L (14-36) H 11/18/19 05:37 ALT 66 U/L (<35) 11/18/19 05:37 Alkaline Phosphatase 198 U/L (38-126) H 11/18/19 05:37 Creatine Kinase 69 U/L (30-135) 11/28/19 04:45 CK-MB (CK-2) 3.95 ng/mL (<4.55) 11/28/19 04:45 Troponin I 0.108 ng/mL 11/28/19 09:43 Total Protein 5.7 g/dL (6.3-8.2) L 11/18/19 05:37 Albumin 3.0 g/dL (3.5-5.0) L 11/18/19 05:37 EGFR Cancelled 11/18/19 05:09 TSH 22.20 uIU/mL (0.47-4.68) H 11/21/19 04:21 Free T4 1.31 ng/dL (0.78-2.19) 11/21/19 04:21 Free T3 pg/mL 2.11 pg/mL (2.77-5.27) L 11/21/19 04:21 Urine Color YELLOW 11/18/19 05:09 Urine Appearance CLEAR 11/18/19 05:09 Urine pH 5.0 (5.0-9.0) 11/18/19 05:09 Ur Specific Elmo 1.013 11/18/19 05:09 Urine Protein NEGATIVE mg/dL (NEGATIVE) 11/18/19 05:09 Urine Glucose (UA) NEGATIVE mg/dL (NEGATIVE) 11/18/19 05:09 Urine Ketones NEGATIVE mg/dL (NEGATIVE) 11/18/19 05:09 Urine Blood NEGATIVE (NEGATIVE) 11/18/19 05:09 Urine Nitrite NEGATIVE (NEGATIVE) 11/18/19 05:09 Urine Bilirubin NEGATIVE (NEGATIVE) 11/18/19 05:09 Urine Urobilinogen NEGATIVE mg/dL (<2.0) 11/18/19 05:09 Ur Leukocyte Esterase TRACE (NEGATIVE) H 11/18/19 05:09 Urine WBC (Auto) 1 /HPF 11/18/19 05:09 Urine RBC (Auto) 1 /HPF 11/18/19 05:09 U Hyaline Cast (Auto) 19 /LPF 11/18/19 05:09 Squamous Epi Cells Auto 1 /HPF 11/18/19 05:09 Urine Mucus (Auto) RARE /LPF 11/18/19 05:09 Urine Ascorbic Acid NEGATIVE (NEGATIVE) 11/18/19 05:09 POC Stool Occult Blood POSITIVE (NEGATIVE) 11/18/19 09:19 Blood Type A POSITIVE 11/18/19 10:30 Antibody Screen NEGATIVE 11/18/19 10:30 Crossmatch See Detail 11/18/19 10:30 11/27/19 11/28/19 11/28/19 22:45 04:45 09:43 CK-MB (CK-2) 4.45 3.95 Troponin I 0.092 0.121 0.108 Impressions: Hip/Pelvis X-Ray 11/20/19 09:46 IMPRESSION: NEGATIVE STUDY OF THE RIGHT HIP. NO EXPLANATION FOR PAIN. Plan Time Spent: Greater than 30 Minutes - 45 minutes Stroke Is this a Stroke Patient?: No Acute Heart Failure - Is this a Heart Failure Patient?: No
[2019-11-30 15:25] VITALS: BP 131/82
[2019-11-30] MEDS: FUROSEMIDE 20 MG TABLET PO SCH (17:08)
[2019-12-03] MEDS ORDERED: HYDROXYCHLOROQUINE SULFATE 200 MG TABLET PO SCH (10:00)
== END 2019-11-30 18:15 | DRG 378 ==
LOC: ER 00:40 → EH 10:21 → 3W 11:54
PROVIDERS: ADMIT Internal Medicine; ATTEND Internal Medicine
PROC: 30233N1 Transfusion of Nonautologous Red Blood Cells into Peripheral Vein, Percutaneous Approach (ICD-10-PCS; principal; 2019-11-18)
DX: K92.1 Melena (principal); L03.115 Cellulitis of right lower limb; E87.1 Hypo-osmolality and hyponatremia; D62 Acute posthemorrhagic anemia; I69.351 Hemiplegia and hemiparesis following cerebral infarction affecting right dominant side; L97.819 Non-pressure chronic ulcer of other part of right lower leg with unspecified severity; E03.9 Hypothyroidism, unspecified; K52.832 Lymphocytic colitis; M32.9 Systemic lupus erythematosus, unspecified; R07.89 Other chest pain; E87.6 Hypokalemia; R19.5 Other fecal abnormalities; S81.812A Laceration without foreign body, left lower leg, initial encounter; W19.XXXA Unspecified fall, initial encounter; M25.511 Pain in right shoulder; M25.551 Pain in right hip; F17.200 Nicotine dependence, unspecified, uncomplicated; I11.0 Hypertensive heart disease with heart failure; I50.9 Heart failure, unspecified; Z92.25 Personal history of immunosuppression therapy; Z79.899 Other long term (current) drug therapy; Z79.52 Long term (current) use of systemic steroids; Y92.9 Unspecified place or not applicable; Z79.890 Hormone replacement therapy; Z91.81 History of falling; Z88.2 Allergy status to sulfonamides; Z88.5 Allergy status to narcotic agent; Z86.718 Personal history of other venous thrombosis and embolism
CPT/HCPCS: 36415; 36430; 80048; 80053; 81001; 82550; 82553; 82962; 84439; 84443; 84481; 84484; 85025; 85610; 85652; 86850; 86900; 86901; 86920; 87040; 87338; 93005; 93010; 96361; 96374; 99285; C9113; J1885; J3010; J3360; J3480; J3490; J7040; J7060; J7120; J7512; P9016

== ENCOUNTER → 2019-12-04 | Outpatient (CLI) | payer BC ==
[2019-12-04 13:20] LABS: HEMATOCRIT 29.8 % (36.0-47.0); HEMOGLOBIN 10.3 g/dL (12.0-15.5); MEAN CORPUSCULAR HEMOGLOBIN 32.2 pg (27.0-33.4); MEAN CORPUSCULAR HGB CONC 34.5 g/dL (32.0-36.0); MEAN CORPUSCULAR VOLUME 93 fl (80-97); PLATELET COUNT 603 10^3/uL (150-450); RED CELL DISTRIBUTION WIDTH 18.8 % (11.5-14.0); WHITE BLOOD COUNT 5.6 10^3/uL (4.0-10.5)
[2019-12-04 13:26] LABS: ALBUMIN 2.6 g/dL (3.5-5.0); ALKALINE PHOSPHATASE 152 U/L (38-126); ANION GAP 9 (5-19); ASPARTATE AMINO TRANSFERASE 35 U/L (14-36); BILIRUBIN,DIRECT 0.6 mg/dL (0.0-0.4); BILIRUBIN,TOTAL 0.8 mg/dL (0.2-1.3); BLOOD UREA NITROGEN 8 mg/dL (7-20); CARBON DIOXIDE 24 mmol/L (22-30); CHLORIDE 105 mmol/L (98-107); GLUCOSE 94 mg/dL (75-110); TOTAL PROTEIN 5.1 g/dL (6.3-8.2)
[2019-12-04 13:45] LABS: ABSOLUTE LYMPHOCYTES# (MANUAL) 0.3 10^3/uL (0.5-4.7); ABSOLUTE MONOCYTES # (MANUAL) 0.5 10^3/uL (0.1-1.4); ANISOCYTOSIS 2+; BAND NEUTROPHILS % (MANUAL) 1 % (3-5); BASOPHILS % (MANUAL) 0 % (0-2); EOSINOPHILS % (MANUAL) 6 % (0-6); LYMPHOCYTES % (MANUAL) 4 % (13-45); MONOCYTES % (MANUAL) 9 % (3-13); POIKILOCYTOSIS SLIGHT; POLYCHROMASIA SLIGHT; SEGMENTED NEUTROPHILS % (MAN) 78 % (42-78); TOTAL CELLS COUNTED 100
[2019-12-04 13:46] LABS: OVALOCYTES SLIGHT; PLATELET COMMENT INCREASED
== END ==
LOC: PNR 12:22
PROVIDERS: ATTEND Family Medicine
DX: I50.9 Heart failure, unspecified (principal); D62 Acute posthemorrhagic anemia; D64.9 Anemia, unspecified
CPT/HCPCS: 80053; 85025

== ENCOUNTER → 2020-01-01 | Outpatient (CLI) | payer SELFPAY ==
--- NOTE | 2020-01-01 11:13 | RADIOLOGY REPORT (SQ) ---
EXAM DESCRIPTION: VENOUS UNILATERAL LOWER COMPLETED DATE/TIME: 01/01/2020 11:04 am REASON FOR STUDY: RLE PAIN M79.661 PAIN IN RIGHT LOWER LEG COMPARISON: Venous Doppler from 01/11/2019. TECHNIQUE: Dynamic and static henderson scale and color images acquired of the right leg venous system. S elected spectral images acquired with additional compression and augmentation maneuvers. The contrala teral common femoral vein and saphenofemoral junction were also imaged. Images stored on PACS. LIMITATIONS: None. FINDINGS: COMMON FEMORAL: Normal phasicity, compression and augmentation. No visualized echogenic ma terial on henderson scale. No defects on color images. FEMORAL: Normal compression and augmentation. No visualized echogenic material on henderson scale. No defe cts on color images. POPLITEAL: Normal compression, augmentation. No visualized echogenic material on henderson scale. No defec ts on color images. CALF VESSELS: Normal compression, augmentation. No visualized echogenic material on henderson scale. No de fects on color images. GSV and SSV: Normal compression, augmentation. No visualized echogenic material on henderson scale. No def ects on color images. ANY DEEP VENOUS INSUFFICIENCY: No. ANY EVIDENCE OF POPLITEAL CYST: No. OTHER: No other finding. CONTRALATERAL COMMON FEMORAL VEIN AND SAPHENOFEMORAL JUNCTION: Normal phasicity, compression and augmentation. No visualized echogenic material on henderson scale. No de fects on color images. IMPRESSION: NO EVIDENCE OF DVT OR SVT IN THE RIGHT LEG. TECHNICAL DOCUMENTATION: JOB ID: [id number] [employer]- All Rights Reserved Reading location - IP/workstation name: [email or web address]
== END ==
LOC: SP 09:50
PROVIDERS: ATTEND Plastic Surgery
DX: I87.313 Chronic venous hypertension (idiopathic) with ulcer of bilateral lower extremity (principal); L97.212 Non-pressure chronic ulcer of right calf with fat layer exposed; M79.661 Pain in right lower leg
CPT/HCPCS: 93971